=== PATIENT | male | born 1960 | race Two or more races ===

== ENCOUNTER 2024-07-31 09:38 | Inpatient (IN) | payer MEDICARE, MEDICAID, SELFPAY ==
[2024-07-31] VITALS (12 sets, daily range): BP systolic 90–121; BP diastolic 61–88; PULSE 79–95; RESP 16–25; TEMP 36.4–37.1; O2SAT 89–99; BMI 26.6
--- NOTE | 2024-07-31 10:01 | XR_ITS ---
Examination: AP chest single view Technique one AP portable upright chest single view Exam date and time: July 31, 2024 at 1039 hours INDICATIONS: Coughing chest pain one week. FINDINGS: Mild to moderate CHF Mild enlargement cardiac contour, prominent vascular congestion with perihilar basilar edema Moderate bilateral pleural effusions Consider superimposed pneumonia at the lung bases Fractures right sixth and seventh ribs as well as eighth rib posteriorly not seen on the 2019 chest x-ray, clinical correlation advised IMPRESSION: Mild to moderate CHF Consider superimposed bibasilar pneumonia Right-sided rib fractures, consider right rib series follow-up as clinically warranted
--- NOTE | 2024-07-31 10:01 | EKG_ITS ---
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: : 1960 Requested By: Matt Hewitt Order Number: [id number] Reading MD: Matt Hewitt Measurements Intervals [place] Rate: 86 P: 33 OK: 140 QRS: -41 QRSD: 100 T: 59 QT: 409 QTc: 492 Interpretive Statements SINUS RHYTHM LEFT AXIS DEVIATION [QRS AXIS < -30] INCOMPLETE RIGHT BUNDLE BRANCH BLOCK [90+ ms QRS DURATION, TERMINAL R IN V1/V2, 40+ ms S IN I/aVL/V4/V5/V6] SEPTAL MYOCARDIAL INFARCTION , OF INDETERMINATE AGE [40+ ms Q WAVE IN V1/V2] ST DEPRESSION, CONSIDER SUBENDOCARDIAL INJURY [0.1+ mV ST DEPRESSION] No previous ECG available for comparison /store/S0/[id number].pdf
[2024-07-31 11:14] LABS: Base Excess, Venous 0 (-3-3); O2 Saturation, Venous 52 % (96-97); PCO2, Venous 33 mmHg (36-56); PO2, Venous 30 mmHg (15-58); pH, Venous 7.46 (7.33-7.66)
[2024-07-31 11:16] LABS: Lactate (Lactic Acid) 2.5 mMol/L (0.4-2.0)
[2024-07-31 11:19] LABS: Basophils % (Auto) 0 % (0-2.5); Eosinophils % (Auto) 0 % (0-10); Hematocrit 29.3 % (41.0-53.0); Hemoglobin 9.9 g/dL (13.5-16.0); Immature Granulocytes % (Auto) 0 % (0-0); Immature Granulocytes Auto 0.04 Thou/mm3 (0.00-0.00); Lymphocytes # (Auto) 1.6 Thou/mm3 (1.0-4.8); Lymphocytes % (Auto) 16 % (10-50); Mean Corpuscular HGB Conc 33.8 g/dl (31.0-37.0); Mean Corpuscular Volume 80 fL (80-100); Monocytes # (Auto) 0.9 Thou/mm3 (0.0-0.8); Monocytes % (Auto) 9 % (0-12); Neutrophils # (Auto) 7.1 Thou/mm3 (1.8-7.7); Neutrophils % (Auto) 74 % (37-80); Nucleated Red Blood Cell % 0 /100 WBC (0); Platelet Count 220 Thou/mm3 (140-440); RDW Standard Deviation 53.2 fL (35.1-43.9); Red Blood Count 3.66 Miln/mm3 (4.50-5.90); White Blood Count 9.6 Thou/mm3 (3.8-10.6)
[2024-07-31 11:36] LABS: B-Type Natriuretic Peptide 2708 pg/mL (0-100)
[2024-07-31 11:44] LABS: Alanine Aminotransferase 15 U/L (10-49); Albumin, Serum 3.8 gm/dL (3.4-4.8); Albumin/Globulin Ratio 1.2 (1.2-2.2); Alkaline Phosphatase 135 U/L (46-116); Anion Gap 10 (7-16); Aspartate Amino Transferase 31 U/L (0-34); BUN/Creatinine Ratio 15 Ratio (12-20); Bilirubin,Total 2.2 mg/dL (0.3-1.2); Blood Urea Nitrogen 18 mg/dL (9-23); Calcium 8.2 mg/dL (8.3-10.6); Calcium (Corrected) 8.4 mg/dL (8.5-10.1); Carbon Dioxide 23.6 mMol/L (20.0-31.0); Chloride 101 mMol/L (98-107); Creatinine (Component) 1.2 mg/dL (0.6-1.3); Estimated Creatinine Clearance 53.4 mL/min (>60); Globulin 3.1 gm/dL (2.3-3.5); Glucose 190 mg/dL (74-106); Lipase 38 U/L (12-53); Magnesium 1.2 mg/dL (1.6-2.6); Osmolality,Calculated 277 (275-295); Potassium 4.1 mMol/L (3.4-5.1); Sodium 135 mMol/L (136-145); Total Protein 6.9 gm/dL (5.7-8.2); eGFR > 60 See Note
[2024-07-31 11:46] LABS: INR 1.3 (0.9-1.3); Partial Thromboplastin Time 31.6 Seconds (22.0-36.0); Prothrombin Time 14.4 Seconds (9.0-12.2)
[2024-07-31 11:50] LABS: Troponin I 2.337 ng/mL (0.0-0.045)
--- NOTE | 2024-07-31 12:05 | PD.EDSOB ---
ED SOB =RME/HPI General Chief Complaint: Shortness of Breath/Dyspnea Stated Complaint: SOB Time Seen by Provider: 07/31/24 10:00 Arrival date/time: 07/31/24 09:38 RME / HPI RME / HPI Narrative: Patient is a 64-year-old gentleman who comes in by EMS from home having increasing shortness of breath he never had this problem before. He states his shortness of breath is worse with exertion. EMS reported his O2 sats to be in the low 90s any pulm on 3 L came up to 99%. He has no other complaint or problem. He denies any obvious chest pain injury trauma no nausea or vomiting. He has no reported cough or cold symptoms. Related Data Home Medications ?Medication ?Instructions ?Recorded ?Confirmed amlodipine 2.5 mg tablet 2.5 mg PO QDAY 01/27/21 01/27/21 atorvastatin 40 mg tablet 40 mg PO QDAY 01/27/21 01/27/21 sitagliptin phosphate 100 mg 100 mg PO QDAY 01/27/21 01/27/21 tablet (Januvia) Previous Rx's ?Medication ?Instructions ?Recorded metformin 1,000 mg tablet 1,000 mg PO BID #60 tabs 08/01/19 Allergies Allergy/AdvReac Type Severity Reaction Status Date / Time No Known Allergies Allergy Verified 01/28/21 17:31 Review of Systems Review of Systems Narrative Review of Systems: Review of Systems: Constitutional: DENIES: Fevers,; Eyes: DENIES: Loss of vision, Head/Ear/Nose: DENIES: Loss of hearing. Throat: Denies dysphagia. Cardiovascular: Denies chest pain, Dyspnea or syncope. Respiratory: See HPI Gastrointestinal: DENIES: Rectal bleeding or melena. Genitourinary: DENIES: Dysuria (painful or difficult urination),; Musculoskeletal: DENIES: Arthralgia (pain in a joint),; Skin: DENIES: Rash,; Neurological: DENIES: loss of function or movement,; Psychiatric: DENIES: recent major life stressor, emotional problem, illicit drug use or abuse,; Endocrinology: DENIES: Weight change,; Hematologic/Lymphatic: DENIES: Abnormal bruising. Allergic/Immunologic: DENIES: Urticaria (hives), Past Medical History Past Medical History CARDIAC: Positive Cardiac Disorders, Hypercholesterolemia and Hypertension GASTROINTESTINAL: Positive Gastrointestinal Bleed MUSCULOSKELETAL: Positive Arthritis ENDOCRINE: Positive Endocrine Disorders and Diabetes Mellitus Type 2 HEMATOLOGIC: Positive Anemia PSYCHO/SOCIAL: Positive Depression and Anxiety OTHER HISTORY: Positive Hospitalization Social History SMOKING STATUS: Former smoker SUBSTANCE USE: does not use ED Exam Narrative Physical exam: Physical Exam: General: The vital signs were reviewed. The patient is non-toxic, in no apparent distress and appears healthy with a patent airway, no respiratory distress and has no apparent circulatory problems. Head & Scalp: Normocephalic, atraumatic. Face: Appears normal and is without lesions, deformity. Ears: Left external pinna appears normal. Right external pinna appears normal. Eyes: The sclera is anicteric. No obvious photophobia. The Left and Right Orbit/Lid/Conjunctiva appears normal without swelling, discoloration or injection. Nose: The nose is without deformity, discharge or tenderness; Throat: Appears normal. The mucous membranes are pink and moist without exudates, redness or mass seen. The tongue appears normal. Neck: The neck is supple and no apparent mass or adenopathy. Chest: The chest wall is normal in size and symmetry and has no chest wall tenderness or crepitus. The patient displays normal ventilator effort without retractions, accessory muscle use and has adequate air movement bilaterally with bilateral crackles. Appears comfortable on Cardiovascular: Regular rate and rhythm; No murmurs, rubs, or gallops; Gastrointestinal: The abdomen appears normal. No obvious hernias or mass. The abdomen is soft and benign, non-distended, with no pain, no guarding and no rebound tenderness. Bowel sounds are present and normal sounding. No CVA tenderness. Genitourinary: Back/Spine: Nontender Extremities/Musculoskeletal/lymphatic: The bilateral upper and lower extremities are warm. There is no evidence of arterial insufficiency. There is no evidence of venous insufficiency/edema. The patient spontaneously moves bilateral upper and lower extremities with no pain and no limitation of movement. There is no apparent, injury or trauma. Skin: The skin is warm, dry and intact. No rashes. No petechia. No purpura. No abnormal bruising. The color is appropriate with no cyanosis. Mental status/Psychiatric: Mental status is appropriate for age. The patient has no apparent delusions, visual hallucinations, no apparent audible hallucinations. The patient has no apparent suicidal thoughts/ideation and no apparent homicidal thoughts/ideation. Neurological: The patient is awake, alert, interactive, cordial, cooperative and is oriented to name and situation. The patient follows commands and answers historical question with no impairment. There is no visual disturbance apparent. The pupils are equal and reactive bilaterally with normal eye movements and no diplopia The bilateral upper and lower extremities have normal strength, normal range of motion and normal functioning. The gait, station and balance appear to be baseline with no acute change Course Quality Measures none Orders Category Date Time Status EKG (ED ONLY) *Do not use* NOW Care 07/31/24 10:01 Completed Consult to Cardiology Stat Cons 07/31/24 13:04 Ordered EKG (ED Only) Stat Exams 07/31/24 10:01 Draft XR chest 1V portable Stat Exams 07/31/24 10:01 Completed B-Type Natriuretic Peptide Stat Lab 07/31/24 10:55 Completed Blood Culture (Lab) Stat Lab 07/31/24 10:55 Received CBC Stat Lab 07/31/24 10:55 Completed Comprehensive Metabolic Panel Stat Lab 07/31/24 10:55 Completed Drug Screen,Urine Stat Lab 07/31/24 14:56 Received Lactate (Lactic Acid) Stat Lab 07/31/24 10:55 Completed Lipase Stat Lab 07/31/24 10:55 Completed Magnesium Stat Lab 07/31/24 10:55 Completed Partial Thromboplastin Time Stat Lab 07/31/24 10:55 Completed Prothrombin Time with INR Stat Lab 07/31/24 10:55 Completed Troponin I Stat Lab 07/31/24 10:55 Completed Troponin I Stat Lab 07/31/24 14:10 Ordered Urinalysis Stat Lab 07/31/24 14:56 Received Urinalysis, C/S if Indicated Stat Lab 07/31/24 14:56 Received Venous Blood Gas Stat Lab 07/31/24 10:55 Completed Aspirin Med 07/31/24 12:07 Discontinued 325 mg PO X1 ONE Furosemide [Lasix Inj] Med 07/31/24 12:07 Discontinued 20 mg IVP X1 ONE Vital Signs Vital signs: Vital Signs Temperature 98.4 F 07/31/24 09:44 Pulse Rate 88 07/31/24 09:44 Respiratory Rate 17 07/31/24 09:44 Blood Pressure 121/79 07/31/24 09:44 Pulse Oximetry (%) 99 07/31/24 09:44 Oxygen Delivery Method Nasal Cannula 07/31/24 09:44 Shortness of Breath / Dyspnea MDM Narrative MDM Narrative:: Patient patient presents with new onset shortness of breath with exertion and chest x-ray consistent with congestive heart failure bilateral effusions and cardiomegaly on chest x-ray. Troponin came back elevated 2.337 and BNP is elevated 2708. Lactic acid came back at 2.5 calcium is 8.2 pH hemic is 7.46 PTT is normal PT is 14.4 with INR 1.3 white count is 9.6 hemoglobin 9.9. EKG reveals sinus rhythm rate [address] elevation NE. There is borderline poor R wave progression. There is low voltages in the frontal leads. Obviously further medical workup is required. Patient clinically has new onset congestive heart failure is gone elevated BNP troponin. Dr. Celaya chief service dispatcher was called will be consulting. Hospitalist Dr. Corcoran was called and they will be admitting. Note the patient's blood pressure been marginal at 105 so is not a candidate for nitro we did give him an aspirin. Will give him some Lasix to treat the fluid overload condition. Note his renal function BUN is 18 creatinine 1.2. Patient data External records reviewed:: [facility] previous records (I reviewed ED visit on 01/27/24) and EMS form Clinical information provided by:: patient and EMS Social determinants that could affect healthcare access:: alcohol use Patient has the following chronic illnesses:: hypertension, diabetes, hyperlipidemiia, alcxohol use How is presenting disease/condition affected by chronic disease/condition?: exacerbated by Evaluation data The following diagnostics were reviewed and interpreted by me:: lab results, radiology exam(s) and EKG tracing(s) Lab and/or radiology exams considered but not ordered:: none Interpretation Summary: Ordering Physician: Matt Hewitt MD Date of Service: 07/31/24 Procedure(s): XR chest 1V portable Accession Number(s): [id number] cc: Matt Hewitt MD; Kit Abdi MD~ Examination: AP chest single view Technique one AP portable upright chest single view Exam date and time: July 31, 2024 at 1039 hours INDICATIONS: Coughing chest pain one week. FINDINGS: Mild to moderate CHF Mild enlargement cardiac contour, prominent vascular congestion with perihilar basilar edema Moderate bilateral pleural effusions Consider superimposed pneumonia at the lung bases Fractures right sixth and seventh ribs as well as eighth rib posteriorly not seen on the 2019 chest x-ray, clinical correlation advised IMPRESSION: Mild to moderate CHF Consider superimposed bibasilar pneumonia Right-sided rib fractures, consider right rib series follow-up as clinically warranted Dictated By: Kit Abdi MD Signed By: <Electronically signed by Kit Abdi MD in [place]> 07/31/24 1115 Medications / Prescriptions Medications or Prescriptions considered but not ordered:: none Medication administrations:: Medication Administration History Acetaminophen (Acetaminophen 325 Mg Tablet) 650 mg PO Q6H PRN PRN Reason: Pain 1-3 and/or Fever >100.1 Stop: 08/30/24 13:47 Dextrose (Dextrose 50%-Water Inj 50 Ml Syringe) 25 ml IV Q15MIN PRN PRN Reason: BG 50-70 responsive npo pt Stop: 08/30/24 13:50 Dextrose (Dextrose 50%-Water Inj 50 Ml Syringe) 50 ml IV Q15MIN PRN PRN Reason: BG <50 OR BG <70 & pt unresponsive Stop: 08/30/24 13:50 Folic Acid (Folic Acid 1 Mg Tablet) 1 mg PO BID EILEEN Stop: 08/05/24 20:59 Furosemide (Furosemide Inj 10 Mg/Ml 4ml Vial) 40 mg IVP BIDD EILEEN Stop: 08/30/24 17:59 Glucagon (Glucagon Inj 1 Mg Vial) 1 mg IM Q15MIN PRN PRN Reason: BG <70, and no IV access Heparin Sodium (Porcine) (Heparin Sod Inj 5000 Unit/Ml Vial) 5,000 unit SC Q12HR EILEEN Stop: 08/14/24 20:59 Magnesium Sulfate (Magnesium Sulfate Ivpb) 4 gm in 50 mls @ 12.5 mls/hr IV X1 ONE Stop: 07/31/24 17:54 Last Admin: 07/31/24 15:00 Dose: 12.5 mls/hr Documented By: Magnesium Sulfate (Magnesium Sulfate Ivpb) 4 gm in 50 mls @ 12.5 mls/hr IV X1 ONE Stop: 07/31/24 21:59 Insulin Human Lispro (Insulin Lispro (Admelog) 1 Unit/0.01 Ml Unit) 0 unit SC ACHS EILEEN; Protocol Stop: 08/30/24 16:59 Lorazepam (Lorazepam 0.5 Mg Tablet) 0.5 mg PO Q4HR PRN PRN Reason: CIWA Score 2-6 Stop: 08/05/24 13:51 Lorazepam (Lorazepam 0.5 Mg Tablet) 1 mg PO Q4HR PRN PRN Reason: CIWA SCORE 7-11 Stop: 08/05/24 13:51 Lorazepam (Lorazepam 0.5 Mg Tablet) 2 mg PO Q4HR PRN PRN Reason: CIWA SCORE 12-15 Stop: 08/05/24 13:51 Lorazepam (Lorazepam 2 Mg/Ml Vial) 1 mg IV X1 PRN PRN Reason: Breakthrough Agitation Nitroglycerin (Nitroglycerin 0.4 Mg Subl Btl #25) 0.4 mg SL Q5MIN PRN PRN Reason: CHEST PAIN Ondansetron HCl (Ondansetron Inj 2 Mg/Ml Inj 2 Ml) 4 mg IV Q6H PRN; Protocol PRN Reason: NAUSEA OR VOMITING Stop: 08/30/24 13:47 Sennosides (Senna Tablet) 1 tab PO QDAY EILEEN; Protocol Stop: 08/31/24 08:59 Thiamine HCl (Thiamine 100 Mg Tablet) 100 mg PO BID EILEEN Stop: 08/05/24 20:59 Discontinued Medications Aspirin (Aspirin 325 Mg Tablet) 325 mg PO X1 ONE Stop: 07/31/24 12:08 Last Admin: 07/31/24 12:13 Dose: 325 mg Documented By: THADDEUS Furosemide (Furosemide Inj 10 Mg/Ml Vial 2 Ml) 20 mg IVP X1 ONE Stop: 07/31/24 12:08 Last Admin: 07/31/24 12:16 Dose: 20 mg Documented By: THADDEUS see above Consultations Consultation(s) initiated? (list below): Yes Consultation #1 (Physician, Specialty, Details): I spoke with hospitalist team who have accepted the [facility]. Diagnosis Shortness of Breath Differential Diagnosis: acute exacerbation of chronic obstructive airways disease, congestive heart failure, community acquired pneumonia and asthma with exacerbation Most likely diagnosis given after review of the tests above:: acute CHF elevated troponin pleural effusion NSTEMI hx of alcohol abuse Admission Indicated Admission indicated?: indicated Admission Request Was there a request for admission?: Yes Admission Attestation Admission request attestation: Discussed case with [] from Hospitalist service regarding admission. Discussed patients ED course, exam findings, labs, and radiology results. The Hospitalist [agrees,declines] to accept the patient for admission. Disposition Plan Disposition Plan: Admit Discharge Plan Plan Patient Disposition: Admit Acute Care w/in Hospital Problem List Clinical Impression: Acute congestive heart failure, Elevated troponin, Pleural effusion, Non-ST elevation NE (NSTEMI), History of alcohol abuse
[2024-07-31] MEDS: Aspirin 325 MG TABLET PO (12:13)
[2024-07-31] MEDS: FUROSEMIDE INJ 10 MG/ML VIAL 2 ML 20 MG IVP (12:16)
--- NOTE | 2024-07-31 13:15 | PC.NURSE ---
PATIENT NOTED WITH OPEN AREA TO RIGHT GREAT TOE AND LEFT PLANTER.
--- NOTE | 2024-07-31 13:51 | XR_ITS ---
Examination: Foot bilateral, or views Technique: AP, lateral each foot total 4 views Date and time of exam: 2024 at 1353 hours Comparison November 15, 2023 INDICATIONS: Redness swelling and pain involving the feet months, history amputation spell FINDINGS: Amputations right second and third toes Amputation first digit left foot Soft tissue swelling about the second of the left foot Large soft tissue defect adjacent to the distal first metatarsal, erosions at the left second digit proximal and distal interphalangeal joints with cortical erosion along the medial distal first metatarsal IMPRESSION: Suspicious for osteomyelitis distal left first metatarsal as well and has proximal middle and distal phalanges left second digit
--- NOTE | 2024-07-31 13:58 | ESHP_ITS ---
<Statement entered by Camelia Nunez MD - 07/31/24 17:18> Patient was seen and examined by me personally. I have directly supervised and reviewed documentation by the team resident and agree with its findings with any exceptions or additional findings as below. Plan of care was discussed with the attending, Dr. Corcoran. New admission today. Patient is a 64-year-old male with past medical history of poorly controlled type 2 diabetes with toe amputations, hypertension, hyperlipidemia, and alcohol use disorder who is presenting to the ED on 07/31/2024 with worsening dypnea on exertion and orthopnea. He endorses mild chest pain that is worsened with inspiration and palpation. Patient reported it has been ongoing for at least 1 month but symptoms worsened in the last few days to the point he presented to the hospital. He has not seen a consultant dietitian in the past but follows with a PCP which he last saw a few months ago. Patient reports taking oral medications for diabetes, cholesterol medication, and antihypertensives. He denies history of smoking. He reports alcohol use but states last drink was about 6 days ago. When patient's was contacted she also endorsed that patient is a daily drinker. Patient was seen in the ED, saturating 90% on 3L O2, afebrile, HR in 90s. Work up revealed troponin 2.337, BNP 2708, normocytic anemia. CXR showed mild to moderate CHF with possible superimposed bibasilar pneumonia and right sided rib fractures. EKG showed normal sinus rhythm with left axis deviation and some ST depressions noted in the septal leads. Patient will be admitted for acute hypoxic respiratory failure secondary to new onset systolic heart failure exacerbation. Cardiology Dr. Celaya was also consulted for possible NSTEMI and was at bedside evaluating the patient with us. He suspects demand ischemia secondary to decompensated left-sided heart failure. Troponin subsequently uptrended to 3.893. Heparin drip is not recommended for now, and suspect chest pain is non-cardiac at this time. Hold off on beta-oscar. Started patient on aspirin and statin. Started Lasix 40 mg IV BID. Strict I&Os with fluid restriction. Awaiting echo. Patient will be placed on CIWA protocol given alcohol use history. X-rays were obtained of bilateral feet due to open ulcers and history of toe amputations. It showed suspicion for osteomyelitis of the distal left first metatarsal as well as proximal middle and distal phalanges left second digit. MRI of the bilateral feet will be ordered. Patient started on ceftriaxone 2 g IV. Right upper quadrant US had been ordered due to elevated Tbili and concern for abdominal pain and shows some suspicion for acute acalculous cholecystitis, but at the time of admission the patient is not complaining of abdominal pain and exam is benign, vitals within normal limits, no leukocytosis. Will hold off on surgery consultation and continue to monitor. Camelia Nunez, PGY-2 Documentation for date of: 07/31/24 HPI History of Present Illness Chief complaint: Chest pain History of present illness: 64-year-old male with past medical history of poorly controlled type 2 diabetes with amputations, hypertension, hyperlipidemia, alcohol use disorder, likely undiagnosed congestive heart failure presenting to the ED on 07/31/2024 with dyspnea on exertion along with chest tightness/pressure. Patient states that for the past year or so he has not felt well and usually is not able to lay flat as he feels short of breath; moreover, recent week he has felt the symptoms are progressively worsening. Patient denies having any palpitations, lower extremity edema or pain with change in movement but states that the pain worsens when he is coughing in the mornings. Further history was obtained by calling the patient's who stated that the patient requested to get [id number] medications at [facility] as symptoms were becoming unbearable. Patient apparently follows up with PCP and last time he was seen was 3 to 4 months ago. Patient presents today with chest pain/pressure-like sensation in the middle/substernal area which radiates diffusely throughout the chest wall. Patient recently was in [place] in May and came back at the end of June. Patient also has history of alcohol use disorder with multiple bottles of beer and small bottles of tequila; moreover, unsure exactly how much the patient drinks but he states his last drink was about 6 days ago. Patient appears to be living with family members but has his own living space within the property. Medical history: As noted above Surgical history: Multiple amputations of the lower extremity phalanges as noted in the exam below Allergies: NKDA Medications: Pending official med rec Family history: Noncontributory Social history: Patient is currently not working, lives in a property but lives separately from his family, alcohol use disorder with multiple drinks a day, denies smoking cigarettes or illicit drug use, patient is from [place] but travels to [place] often ROS: All 12 systems assessed and the patient denies unless otherwise stated in HPI. In the ED, patient presented normotensive, regular heart rate, respiratory rate 17, afebrile satting 99 on 3 L nasal cannula. Pertinent lab findings included WBC 9.6, hemoglobin 9.9 with MCV of 80, platelet 220, sodium 135, BUN 18, creatinine 1.2 (baseline 0.8), lactic acid 2.5, magnesium 1.2, troponin 2.337, BNP 2708, urine toxicology and urine alcohol pending. Chest x-ray shows mild to moderate CHF with possible superimposed bibasilar pneumonia and right sided rib fractures. EKG shows normal sinus rhythm with left axis deviation and some ST depressions are noted in the septal leads. Patient will be admitted for cardiomyopathy likely secondary to alcohol, congestive heart failure exacerbation with cardiology consulted for recommendations. Exam Vital Signs Temp Pulse Resp BP Pulse Ox O2 Del Method O2 Flow Rate 97.5 F 94 18 91/62 93 L Nasal Cannula 3 07/31/24 13:23 07/31/24 13:23 07/31/24 13:23 07/31/24 13:23 07/31/24 13:23 07/31/24 13:23 07/31/24 13:23 Narrative Exam Physical Exam: GENERAL: Awake, tearful, answers questions but takes some time to do so, appears older than stated age. HEENT: NC/AT. Moist mucosa. PERRLA but pinpoint (2/3mm)/EOMI. CARDIO: Heart RRR, no obvious murmurs, JVD noted. PULM: No coughing but appears visibly SOB on 3L NC, crackles noted on b/l upper lung diehl and distant breath sounds on lung bases. GI: Abdomen soft, NT/ND, +BS. SKIN/MSK/EXT: Patient has RLE ampuations (3rd/4th phalange) and LLE amputation (1st phalange), venous stasis changes. No rashes/edema. NEURO: Oriented x3, no focal neurological deficits noted. Results: Labs 08/01/24 02:30 08/01/24 02:30 Labs: Short CBC 07/31/24 Range/Units 10:55 WBC 9.6 (3.8-10.6) Thou/mm3 Hgb 9.9 L (13.5-16.0) g/dL Hct 29.3 L (41.0-53.0) % Plt Count 220 (140-440) Thou/mm3 BMP 07/31/24 10:55 Sodium 135 L Potassium 4.1 Chloride 101 Carbon Dioxide 23.6 BUN 18 Creatinine 1.2 Glucose 190 H Calcium 8.2 L Cardiac Enzymes 07/31/24 Range/Units 10:55 Troponin I 2.337 H* (0.0-0.045) ng/mL Liver Function 07/31/24 Range/Units 10:55 Total Bilirubin 2.2 H (0.3-1.2) mg/dL AST 31 (0-34) U/L ALT 15 (10-49) U/L Alkaline Phosphatase 135 H (46-116) U/L Albumin 3.8 (3.4-4.8) gm/dL ABG Interpretation ABG results: 07/31/24 10:55 VBG pH 7.46 VBG pCO2 33 L VBG pO2 30 VBG Base Excess 0 Quality Measures Quality Measures VTE prophylaxis Advance care planning discussed with:: patient and spouse Medications Home Medications and Allergies Home Medications ?Medication ?Instructions ?Recorded ?Confirmed ?Type amlodipine 2.5 mg tablet 2.5 mg PO QDAY 01/27/2107/18 History atorvastatin 40 mg tablet 40 mg PO QDAY 01/27/2101/27 History sitagliptin phosphate 100 mg 100 mg PO QDAY 01/27/21 0 01/27/21 History tablet (Januvia) Allergies Allergy/AdvReac Type Severity Reaction Status Date / Time No Known Allergies Allergy Verified 01/28/21 17:31 Visit Medications Acetaminophen (Acetaminophen 325 Mg Tablet) 650 mg PO Q6H PRN PRN Reason: Pain 1-3 and/or Fever >100.1 Stop: 08/30/24 13:47 Dextrose (Dextrose 50%-Water Inj 50 Ml Syringe) 25 ml IV Q15MIN PRN PRN Reason: BG 50-70 responsive npo pt Stop: 08/30/24 13:50 Dextrose (Dextrose 50%-Water Inj 50 Ml Syringe) 50 ml IV Q15MIN PRN PRN Reason: BG <50 OR BG <70 & pt unresponsive Stop: 08/30/24 13:50 Folic Acid (Folic Acid 1 Mg Tablet) [address] [facility] Stop: 08/05/24 20:59 Furosemide (Furosemide Inj 10 Mg/Ml 4ml Vial) [address] [facility] Stop: 08/30/24 17:59 Glucagon (Glucagon Inj 1 Mg Vial) 1 mg IM Q15MIN PRN PRN Reason: BG <70, and no IV access Heparin Sodium (Porcine) (Heparin Sod Inj 5000 Unit/Ml Vial) 5,[address] [facility] Stop: 08/14/24 20:59 Magnesium Sulfate (Magnesium Sulfate Ivpb) 4 gm in 50 mls @ 12.5 mls/hr IV X1 ONE Stop: 07/31/24 17:54 Magnesium Sulfate (Magnesium Sulfate Ivpb) 4 gm in 50 mls @ 12.5 mls/hr IV X1 ONE Stop: 07/31/24 21:59 Insulin Human Lispro (Insulin Lispro (Admelog) 1 Unit/0.01 Ml Unit) [address] [facility]; Protocol Stop: 08/30/24 16:59 Lorazepam (Lorazepam 0.5 Mg Tablet) 0.5 mg PO Q4HR PRN PRN Reason: CIWA Score 2-6 Stop: 08/05/24 13:51 Lorazepam (Lorazepam 0.5 Mg Tablet) 1 mg PO Q4HR PRN PRN Reason: CIWA SCORE 7-11 Stop: 08/05/24 13:51 Lorazepam (Lorazepam 0.5 Mg Tablet) 2 mg PO Q4HR PRN PRN Reason: CIWA SCORE 12-15 Stop: 08/05/24 13:51 Lorazepam (Lorazepam 2 Mg/Ml Vial) 1 mg IV X1 PRN PRN Reason: Breakthrough Agitation Nitroglycerin (Nitroglycerin 0.4 Mg Subl Btl #25) 0.4 mg SL Q5MIN PRN PRN Reason: CHEST PAIN Ondansetron HCl (Ondansetron Inj 2 Mg/Ml Inj 2 Ml) 4 mg IV Q6H PRN; Protocol PRN Reason: NAUSEA OR VOMITING Stop: 08/30/24 13:47 Sennosides (Senna Tablet) [address] [facility]; Protocol Stop: 08/31/24 08:59 Thiamine HCl (Thiamine 100 Mg Tablet) [address] [facility] Stop: 08/05/24 20:59 Discontinued Medications Aspirin (Aspirin 325 Mg Tablet) 325 mg PO X1 ONE Stop: 07/31/24 12:08 Last Admin: 07/31/24 12:13 Dose: 325 mg Furosemide (Furosemide Inj 10 Mg/Ml Vial 2 Ml) 20 mg IVP X1 ONE Stop: 07/31/24 12:08 Last Admin: 07/31/24 12:16 Dose: 20 mg Assessment & Plan Plan 64-year-old male with past medical history of poorly controlled type 2 diabetes with amputations, hypertension, hyperlipidemia, alcohol use disorder, likely undiagnosed congestive heart failure presenting to the ED on 07/31/2024 with dyspnea on exertion along with chest tightness/pressure will be admitted for cardiomyopathy likely secondary to alcohol, congestive heart failure exacerbation with cardiology consulted for recommendations. #Cardiomyopathy, likely secondary to alcohol use disorder #Congestive heart failure exacerbation #Elevated troponin, NSTEMI type I versus type II #Possible bibasilar pneumonia? Patient is presenting to the ED today with exertional dyspnea along with chest pain and signs of orthopnea for over a year Patient states that he follows a PCP for about 3 to 4 months but has not seen a consultant dietitian in the past regarding his symptoms In the ED, patient is normal/hypotensive and requiring supplemental oxygenation and complaining of substernal chest pressure Troponin elevated at 2.337 and BNP of 2708, magnesium 1.2; ED given aspirin 325 x 1 and IV furosemide 20 x 1 Chest x-ray shows mild to moderate CHF with possible superimposed bibasilar pneumonia and right sided rib fractures. EKG shows normal sinus rhythm with left axis deviation and some ST depressions are noted in the septal leads. Cardiology, Dr. Celaya, has been consulted Plan: Trending troponin every 6 hours Ordered Asp 81 and atorvastatin 40mg hs IV Lasix 40 mg twice daily Strict I's and O's Daily weight Echo ordered Sublingual nitroglycerin, max dose of 3 Keep potassium greater than 4 and magnesium greater than 2 Ordered morning A1c, TSH and lipid panel to risk stratify ASCVD Appreciate recommendations by Dr. Celaya, cardiology Will hold off on antibiotics at this time as the patient does not have any fever, elevated WBC #Alcohol use disorder Per history patient has alcohol use disorder and drinks beer and tequila; unsure exactly how much at this time History corroborated with the patient's who confirms that the patient does drink but she is also unsure exactly how much On laboratory findings patient has T. bili of 2.2, AST 31, ALT 15, alk phosphatase 135 Patient denies having any abdominal pain at this time and there are no signs of cirrhosis (caput medusae, spider angiomas, ascites) Plan: [facility] protocol initiated Counseled on alcohol cessation Liver ultrasound ordered #[id number] type 2 diabetes, poorly controlled #Possible osteomyelitis? Patient has known history of type 2 diabetes, denies using insulin and is currently on Januvia and metformin at home Last A1c on file is from 2020 and it is 11.4; moreover, current glucose 190 Patient has complications secondary to type 2 diabetes, amputations noted in exam Xray foot shows: Suspicious for osteomyelitis distal left first metatarsal as well and has proximal middle and distal phalanges left second digit Plan: Sliding scale insulin Carb consistent low diet, bedside glucose ACHS MRI bilateral feet ordered to rule out signs of osteomyelitis Ceftriaxone 2g IV qday empirically A1c in the morning Wound care #SHAHBAZ #Prerenal azotemia Patient presenting today with acute kidney injury with creatinine of 1.2 Baseline creatinine appears to be 0.8-0.9 SHAHBAZ is likely secondary to acute exacerbation of congestive heart failure and cardiomyopathy Plan: IV diuresis as above should help with vascular congestion and improve kidney function Will continue monitor with morning labs #Hypertension Patient has history of hypertension and takes some pulm medications, unsure exactly which medications Patient is currently normotensive/hypotensive Plan: Pending med rec Will resume when appropriate #Normocytic anemia Patient is presenting with hemoglobin of 9.9, MCV of 80 Differentials include iron deficiency anemia, anemia of chronic disease, vitamin deficiency, hemolytic anemia No signs of acute GI bleeding noted, patient denies having any hematuria or melena/hematochezia/hematemesis Plan: Follow-up on iron panel, ferritin, reticulocyte count and blood smear Hospital Management: Lines: PIV, Dailey Diet: Cardiac, carb consistent low and fluid restriction 1800 mL Bowel: Senna GI prophylaxis: Not needed DVT prophylaxis: Heparin subcu Dispo: Cardiology consultation for cardiomyopathy and congestive heart failure exacerbation, IV diuretics and workup for possible osteomyelitis Code: Full Patient seen and assessed with attending Dr. Corcoran and senior resident Dr. Enrique Damon, PGY-1 Attending Provider Attestation/Addendum I have examined the patient, reviewed labs and imaging findings, discussed the case with the resident(s), and reviewed entered orders. I agree with the plan of care as outlined in this note, with these additional summaries/recommendations: Patient seen at bedside. Patient will be admitted for acute hypoxic respiratory failure secondary to CHF exacerbation. EF unknown at this time and echocardiogram ordered. Cardiology consulted. Will proceed with aggressive diuresis Lasix 40 mg IV twice daily as patient appears Lasix na?ve. Pending ejection fraction we will institute goal-directed medical therapy. Troponin found to be significantly elevated and patient endorsing some chest pain although no evidence of acute ST changes on EKG. We will continue to trend troponin. Patient received loading dose of aspirin via ER provider and we will start aspirin 81 mg as well as atorvastatin 40 mg p.o. at bedtime. Most likely secondary to demand ischemia and appreciate cardiac recs. Of note chest x-ray shows right rib fractures so may be the source of patient's pain although no evidence of following. Continue pain management as needed. Patient also endorses alcohol use and we will place on CIWA. Hyperbilirubinemia present which is possibly secondary to congestive hepatopathy versus alcohol use. Liver ultrasound ordered. Start insulin sliding scale for diabetes mellitus type 2. Order A1c. Mild hypomagnesia present and replacement given. Repeat level in AM. Chest x-ray showed possible superimposed bacterial pneumonia although suspicion is low at this time and we will hold off starting antibiotics. Patient updated on the plan and in agreement. All questions answered to satisfaction. Repeat hematology and chemistry panel in AM. Dr. Nilo MD
[2024-07-31 14:10] LABS: Reflex Lactate? Y
--- NOTE | 2024-07-31 14:29 | XR_ITS ---
Examination: Abdomen sonogram, Limited Date and time of exam: July 31, 2024 1449 hours INDICATIONS: Alcohol abuse history with elevated total bilirubin on laboratory examination today Technique: Real-time nicholson scale transabdominal sonographic images of the upper abdomen obtained. Findings: Gallbladder wall 0.4 cm with edema No gallstones Common bile duct 0.3 cm Pancreatic head 2.4 cm Liver 15.2 cm Fatty infiltration throughout the liver Normal hepatopedal portal venous flow Patent IVC Mild right pleural fluid IMPRESSION: Suspicious for acute acalculous cholecystitis, consider MRCP follow-up
--- NOTE | 2024-07-31 14:42 | PC.CC ---
Patient presents to the hospital for CHF Exacerbation. Nicolle GONZALEZ made [id number] contact with patient. ASW introduced self, role, and reason for visit. Patient appeared alert and oriented to self, location, and situation. At bedside was patient's , Era Adhikari , patient provided consent to remain in the room during assessment. ASW discussed limits of confidentiality. Patient was pleasant and engaged in initial assessment. Patient confirmed information on demographics. His medical decision maker/next of kin is his Era. At home patient ambulates with a walker/motorized chair/cane patient is able to complete his own ADLs. He stated that he has been struggling with ambulation more as he is not able to bare weight on his feet and has been having frequent falls. Patient does not use any oxygen at home. Patient's primary provider is John Singer and he uses the pharmacy inside [facility]. Upon discharge patient would liek to go home but if not able to his last choice would be SNF but would like Home Health. Hardware Developer to follow up for any discharge needs.
[2024-07-31] MEDS: Magnesium Sulfate 4 GM Ivpb 4 GM/50 ML BAG IV ×2 (15:00→17:24)
[2024-07-31 15:13] LABS: Collection Type, Urine Clean Catch
[2024-07-31 15:27] LABS: Bilirubin,Urine Negative (Negative); Blood,Urine Negative (Negative); Clarity,Urine Clear (Clear/Hazy); Color,Urine Lt-Yellow (Lt Yel-Yel); Culture Indicated,Urine Not Indicated; Glucose, Urine Negative (Negative); Hyaline Casts,Urine < 1 /hpf (0-1); Ketones,Urine Negative (Negative); Leukocyte Esterase,Urine Negative (Negative); Nitrite,Urine Negative (Negative); Protein,Urine Negative (Neg - Trace); RBC,Urine 1 /hpf (0-3); Squamous Epithelial Cell,Urine < 1 /hpf (0-5); Urobilinogen,Urine Negative mg/dL (0.0-1.0); WBC,Urine 1 /hpf (0-5)
[2024-07-31 15:32] LABS: Amphetamine/Methamp Scrn,U Negative (Negative); Barbiturate Screen,Urine Negative (Negative); Benzodiazepines Screen,Urine Negative (Negative); Benzoylecgonine Screen, Ur Negative (Negative); Fentanyl Screen,Urine Negative (Negative); Opiate Screen,Urine Negative (Negative); THC Screen,Urine Negative (Negative)
[2024-07-31 15:39] LABS: Alcohol, Urine Negative (Negative)
[2024-07-31 15:59] LABS: Troponin I 3.893 ng/mL (0.0-0.045)
--- NOTE | 2024-07-31 16:01 | ESCONSULT_ITS ---
<Statement entered by Shi Celaya MD - 08/03/24 16:49> I evaluated the patient in ED with PGY 3 Dr AYALA agree with assessment and recommendations will get ECHO and assess mostly acutely decompensated HF and type 2 troponin will trend , aggressive duretics LASIX monitor response HPI Data of Consult Requesting Physician: Olivier Corcoran MD Admitting Provider: Olivier Corcoran MD Attending Provider: Olivier Corcoran MD Primary Care Provider: John Taylor PA-C Consult Narrative Reason for consult: New-onset CHF History of present illness: Patient is a 64-year-old male with history of type 2 diabetes mellitus, hypertension, hyperlipidemia, and alcohol use who presented to the ED with concerns of dyspnea on exertion and chest pressure that began roughly 1 month ago. Symptoms noticed to worsen on physical exertion or when laying down. He had plan to follow-up with his PCP, however was waiting for insurance change when his symptoms noticed to become very severe, decided to come to the ED at that time. If you do not get that in the ED, patient was noticed to have imaging of mild to moderate CHF on chest x-ray in the setting of elevated BNP 2708 and elevated troponins 2.337, EKG revealing sinus rhythm without concern of acute ME. Cardiology team was consulted for concern of new onset congestive heart failure. At bedside, patient reports that the chest pressure is mostly on the left side and occurs when patient coughs. The pressure can sometimes radiate to the patient's left arm, has occurred multiple times in the last month. There were no inciting factors reported, however patient does endorse that he has had 2 falls in the last few years resulting in left and right sided rib fractures. ROS is pertinent for dyspnea and chest pressure, patient denies having bilateral lower extremity edema. Remainder of ROS unremarkable. PMH: type 2 diabetes mellitus, hypertension, hyperlipidemia, and alcohol use FH: T2DM, Alzheimer's disease, Cancer (unclear which type) Surgical Hx: Left foot first toe and right foot second/third digit amputation Social Hx: Last alcohol drink few days ago (unclear how much patient normally consumes), denies tobacco or drug use Travel Hx: In [place] between May-Jun 2024 cc:: cc: Olivier Corcoran MD Review of Systems Review of Systems Narrative Review of Systems: GENERAL: Denies fevers/chills or diaphoresis. HEENT: Denies headache or visual/hearing changes. NEURO: Denies unusual weakness or difficulty speaking. CARDIO: Endorses chest pressure PULM: Endorses dyspnea on exertion, cough GI: Denies abdominal pain, nausea, vomiting, diarrhea Exam Vital Signs Temp Pulse Resp BP Pulse Ox O2 Del Method O2 Flow Rate 98.8 F 95 16 102/88 H 94 L Nasal Cannula 3 07/31/24 14:29 07/31/24 14:29 07/31/24 14:29 07/31/24 14:29 07/31/24 14:29 07/31/24 14:07/31/24 14:29 Narrative Exam General: AOx3, cooperative, in no acute distress HEENT: Atraumatic/normocephalic, ESEQUIEL, neck supple Heart: RRR, S1 and S2 without clicks or murmurs Lungs: Clear on auscultation bilaterally, on 3L NC Abdomen: Soft, nontender. Bowel sounds present on all quadrants Skin: Left foot first digit amputation, right foot second and third digit amputation, no lower extremity edema noted Neuro: No focal neurological deficits noted on appearance Results Labs 07/31/24 10:55 07/31/24 10:55 Labs: Short CBC 07/31/24 Range/Units 10:55 WBC 9.6 (3.8-10.6) Thou/mm3 Hgb 9.9 L (13.5-16.0) g/dL Hct 29.3 L (41.0-53.0) % Plt Count 220 (140-440) Thou/mm3 BMP 07/31/24 10:55 Sodium 135 L Potassium 4.1 Chloride 101 Carbon Dioxide 23.6 BUN 18 Creatinine 1.2 Glucose 190 H Calcium 8.2 L Cardiac Enzymes 07/31/24 07/31/24 Range/Units 10:55 15:12 Troponin I 2.337 H* 3.893 H* D (0.0-0.045) ng/mL Liver Function 07/31/24 Range/Units 10:55 Total Bilirubin 2.2 H (0.3-1.2) mg/dL AST 31 (0-34) U/L ALT 15 (10-49) U/L Alkaline Phosphatase 135 H (46-116) U/L Albumin 3.8 (3.4-4.8) gm/dL Urine 07/31/24 Range/Units 14:56 Urine Color Lt-Yellow (Lt Yel-Yel) Urine Clarity Clear (Clear/Hazy) Urine pH 6.0 (5.0-7.0) Ur Specific Coral 1.010 (1.001-1.035) Urine Protein Negative (Neg - Trace) Urine Glucose (UA) Negative (Negative) ABG Interpretation ABG results: 07/31/24 10:55 VBG pH 7.46 VBG pCO2 33 L VBG pO2 30 VBG Base Excess 0 Quality Measures Quality Measures none Advance care planning discussed with:: patient Medications Home Medications and Allergies Home Medications ?Medication ?Instructions ?Recorded ?Confirmed ?Type amlodipine 2.5 mg tablet 2.5 mg PO QDAY 01/27/2107/18 History atorvastatin 40 mg tablet 40 mg PO QDAY 01/27/2101/27 History sitagliptin phosphate 100 mg 100 mg PO QDAY 01/27/21 0 01/27/21 History tablet (Januvia) Allergies Allergy/AdvReac Type Severity Reaction Status Date / Time No Known Allergies Allergy Verified 01/28/21 17:31 Visit Medications Acetaminophen (Acetaminophen 325 Mg Tablet) 650 mg PO Q6H PRN PRN Reason: Pain 1-3 and/or Fever >100.1 Stop: 08/30/24 13:47 Aspirin (Aspirin Ec 81 Mg Tabec) 81 mg PO QDAY EILEEN Stop: 08/31/24 08:59 Atorvastatin Calcium (Atorvastatin Calcium 20 Mg Tablet) 40 mg PO HS EILEEN Stop: 08/30/24 20:59 Dextrose (Dextrose 50%-Water Inj 50 Ml Syringe) 25 ml IV Q15MIN PRN PRN Reason: BG 50-70 responsive npo pt Stop: 08/30/24 13:50 Dextrose (Dextrose 50%-Water Inj 50 Ml Syringe) 50 ml IV Q15MIN PRN PRN Reason: BG <50 OR BG <70 & pt unresponsive Stop: 08/30/24 13:50 Folic Acid (Folic Acid 1 Mg Tablet) 1 mg PO BID EILEEN Stop: 08/05/24 20:59 Furosemide (Furosemide Inj 10 Mg/Ml 4ml Vial) 40 mg IVP BIDD EILEEN Stop: 08/30/24 17:59 Glucagon (Glucagon Inj 1 Mg Vial) 1 mg IM Q15MIN PRN PRN Reason: BG <70, and no IV access Heparin Sodium (Porcine) (Heparin Sod Inj 5000 Unit/Ml Vial) 5,000 unit SC Q12HR [facility] Stop: 08/14/24 20:59 Magnesium Sulfate (Magnesium Sulfate Ivpb) 4 gm in 50 mls @ 12.5 mls/hr IV X1 ONE Stop: 07/31/24 17:54 Last Admin: 07/31/24 15:00 Dose: 12.5 mls/hr Magnesium Sulfate (Magnesium Sulfate Ivpb) 4 gm in 50 mls @ 12.5 mls/hr IV X1 ONE Stop: 07/31/24 21:59 Insulin Human Lispro (Insulin Lispro (Admelog) 1 Unit/0.01 Ml Unit) 0 unit SC ACHS [facility]; Protocol Stop: 08/30/24 16:59 Lorazepam (Lorazepam 0.5 Mg Tablet) 0.5 mg PO Q4HR PRN PRN Reason: CIWA Score 2-6 Stop: 08/05/24 13:51 Lorazepam (Lorazepam 0.5 Mg Tablet) 1 mg PO Q4HR PRN PRN Reason: CIWA SCORE 7-11 Stop: 08/05/24 13:51 Lorazepam (Lorazepam 0.5 Mg Tablet) 2 mg PO Q4HR PRN PRN Reason: CIWA SCORE 12-15 Stop: 08/05/24 13:51 Lorazepam (Lorazepam 2 Mg/Ml Vial) 1 mg IV X1 PRN PRN Reason: Breakthrough Agitation Nitroglycerin (Nitroglycerin 0.4 Mg Subl Btl #25) 0.4 mg SL Q5MIN PRN PRN Reason: CHEST PAIN Ondansetron HCl (Ondansetron Inj 2 Mg/Ml Inj 2 Ml) 4 mg IV Q6H PRN; Protocol PRN Reason: NAUSEA OR VOMITING Stop: 08/30/24 13:47 Sennosides (Senna Tablet) 1 tab PO QDAY [facility]; Protocol Stop: 08/31/24 08:59 Thiamine HCl (Thiamine 100 Mg Tablet) 100 mg PO BID [facility] Stop: 08/05/24 20:59 Discontinued Medications Aspirin (Aspirin 325 Mg Tablet) 325 mg PO X1 ONE Stop: 07/31/24 12:08 Last Admin: 07/31/24 12:13 Dose: 325 mg Furosemide (Furosemide Inj 10 Mg/Ml Vial 2 Ml) 20 mg IVP X1 ONE Stop: 07/31/24 12:08 Last Admin: 07/31/24 12:16 Dose: 20 mg Assessment & Plan Plan Patient is a 64-year-old male with history of type 2 diabetes mellitus, hypertension, hyperlipidemia, and alcohol use who presented to the ED with concerns of dyspnea on exertion and chest pressure that began roughly 1 month ago. Symptoms noticed to worsen on physical exertion or when laying down. He had plan to follow-up with his PCP, however was waiting for insurance change when his symptoms noticed to become very severe, decided to come to the ED at that time. If you do not get that in the ED, patient was noticed to have imaging of mild to moderate CHF on chest x-ray in the setting of elevated BNP 2708 and elevated troponin 2.337, EKG revealing sinus rhythm without concern of acute ME. Cardiology team was consulted for concern of new onset congestive heart failure. #New-onset congestive heart failure #Troponin elevation in setting of CHF and demand ischemia #Possible ischemic cardiomyopathy - Troponin 2.337 and BNP 2708 on admission - Troponin noted to increase to 3.893, no changes to patient's clinical condition noted - EKG revealing sinus rhythm, low suspicion for acute ME - CXR revealing mild-moderate CHF, with right sided rib fractures - Orthopnea and dyspnea on exertion reported by patient, no lower extremity edema noted Plan: - IV lasix 40mg BID with goal urine output ~2L in 24 hours - Strict I/Os - Fluid restriction 5266-6083 cc/daily - Hold on starting beta blockers for now - Echocardiogram advised - DVT prophylaxis, do not recommend IV heparin at this time #Alcohol use disorder #SHAHBAZ #Hx of T2DM - Management per primary team Patient case discussed with attending physician Dr. Yomi Ayala, DO PGY-3
--- NOTE | 2024-07-31 16:22 | PC.NURSE ---
MD made aware of critical trop 3.893. No orders given. will continue to monitor
[2024-07-31] MEDS: cefTRIAXone 2 GM in SODIUM CHLORIDE 0.9% (Popper) 50 ML IV (17:23)
[2024-07-31] MEDS: FUROSEMIDE INJ 10 MG/ML 4ML VIAL 40 MG IVP (17:24)
[2024-07-31] MEDS: HEPARIN SOD INJ 5000 UNIT/ML VIAL SC (20:34)
[2024-07-31] MEDS: ATORVASTATIN CALCIUM 20 MG TABLET 40 MG PO (20:34)
[2024-07-31] MEDS: FOLIC ACID 1 MG TABLET PO (20:34)
[2024-07-31] MEDS: THIAMINE 100 MG TABLET PO (20:34)
[2024-07-31] MEDS: INSULIN LISPRO (AdmeLOG) 1 UNIT/0.01 ML UNIT SC (20:35)
[2024-07-31 22:07] LABS: Troponin I 5.348 ng/mL (0.0-0.045)
[2024-08-01] VITALS (8 sets, daily range): BP systolic 91–114; BP diastolic 54–83; PULSE 75–88; RESP 18–27; TEMP 36.2–37.3; O2SAT 94–99; BMI 28.1
--- NOTE | 2024-08-01 | XR_ITS ---
Examination: MRI right foot, without contrast Date and time of exam: August 11, 2024 1054 hours INDICATIONS: Nonhealing wound right great toe 2 months Technique: Multiple axial sagittal and coronal images of the right foot have been obtained with the Siemens high-resolution 1.5 Marina MRI scanner. Images obtained include T2-weighted fat-suppressed sagittal sections, TR 3500, TE 46, T2 weighted coronal fat suppressed images, TR 3050, TE 84, T2-weighted transverse fat suppressed images, TR 3260, TE 63, proton density transverse images, TR 4720 TE 46, and T1 weighted coronal images, TR 560, TE 13. Findings: The images are significantly degraded secondary to patient motion Soft tissue infection surrounds the second digit Early cortical bone destruction involving distal phalanx second digit No soft tissue abscess IMPRESSION: Suspicious for early osteomyelitis distal phalanx second digit
--- NOTE | 2024-08-01 | XR_ITS ---
Examination: MRI left foot, without contrast Date and time of exam: August 11, 2024 1124 hours INDICATIONS: Nonhealing wound left first metatarsal pain and swelling and tenderness years Technique: Multiple axial sagittal and coronal images of the left foot have been obtained with the Siemens high-resolution 1.5 Marina MRI scanner. Images obtained include T2-weighted fat-suppressed sagittal sections, TR 3500, TE 46, T2 weighted coronal fat suppressed images, TR 3050, TE 84, T2-weighted transverse fat suppressed images, TR 3260, TE 63, proton density transverse images, TR 4720 TE 46, and T1 weighted coronal images, TR 560, TE 13. Findings: Soft tissue infection surrounding the distal first metatarsal Early cortical bone erosion sagittal image 6 involving the distal first metatarsal with reactive marrow edema Amputation left first digit No soft tissue abscess Absent first digit IMPRESSION: Early osteomyelitis distal first metatarsal
[2024-08-01 02:50] LABS: Basophils # (Auto) 0.1 Thou/mm3 (0.0-0.2); Basophils % (Auto) 1 % (0-2.5); Eosinophils # (Auto) 0.2 Thou/mm3 (0.0-0.5); Eosinophils % (Auto) 2 % (0-10); Hematocrit 28.6 % (41.0-53.0); Hemoglobin 9.5 g/dL (13.5-16.0); Immature Granulocytes % (Auto) 0 % (0-0); Immature Granulocytes Auto 0.03 Thou/mm3 (0.00-0.00); Immature Reticulocyte Fraction 38.6 % (2.3-13.4); Lymphocytes # (Auto) 2.3 Thou/mm3 (1.0-4.8); Lymphocytes % (Auto) 27 % (10-50); Mean Corpuscular HGB Conc 33.2 g/dl (31.0-37.0); Mean Corpuscular Hemoglobin 26.5 pg (25.0-35.0); Mean Corpuscular Volume 80 fL (80-100); Monocytes # (Auto) 0.8 Thou/mm3 (0.0-0.8); Monocytes % (Auto) 9 % (0-12); Neutrophils # (Auto) 5.3 Thou/mm3 (1.8-7.7); Neutrophils % (Auto) 61 % (37-80); Nucleated Red Blood Cell % 0 /100 WBC (0); Platelet Count 194 Thou/mm3 (140-440); Red Blood Count 3.58 Miln/mm3 (4.50-5.90); Reticulocyte % (Auto) 2.5 % (0.5-1.5); Reticulocyte Absolute Auto 89.5 Biln/L (25.0-75.0); Reticulocyte Hgb Content 27.2 pg (28.0-35.0); White Blood Count 8.7 Thou/mm3 (3.8-10.6)
[2024-08-01 02:53] LABS: Path Review Blood Smear Sent to Pathologist
[2024-08-01 02:59] LABS: Glucose Estimated Average 148 mg/dL (80-131); Hemoglobin A1C 6.8 % Hgb (4.8-6.0)
[2024-08-01 03:02] LABS: INR 1.2 (0.9-1.3); Prothrombin Time 13.2 Seconds (9.0-12.2)
[2024-08-01 03:10] LABS: Ferritin 28 ng/mL (10.5-307.3); Iron 12 mcg/dL (65-175); Percent Iron Saturation 3 % (20-55); Total Iron Binding Capacity 330 mcg/dL (250-425); Unsaturated Iron Binding 318 (225-295)
[2024-08-01 03:16] LABS: Alanine Aminotransferase 15 U/L (10-49); Albumin, Serum 3.4 gm/dL (3.4-4.8); Albumin/Globulin Ratio 1.1 (1.2-2.2); Alkaline Phosphatase 124 U/L (46-116); Anion Gap 7 (7-16); Aspartate Amino Transferase 44 U/L (0-34); BUN/Creatinine Ratio 18 Ratio (12-20); Bilirubin,Total 1.4 mg/dL (0.3-1.2); Blood Urea Nitrogen 18 mg/dL (9-23); Calcium 7.9 mg/dL (8.3-10.6); Calcium (Corrected) 8.4 mg/dL (8.5-10.1); Carbon Dioxide 25.8 mMol/L (20.0-31.0); Cardiac Risk Estimate 3.3 RATIO (4.0-6.7); Chloride 101 mMol/L (98-107); Cholesterol 100 mg/dL (132-200); Estimated Creatinine Clearance 64.1 mL/min (>60); Globulin 3.2 gm/dL (2.3-3.5); Glucose 109 mg/dL (74-106); HDL Cholesterol 30 mg/dL (40-60); LDL Cholesterol,Calculated 56 mg/dL (0-130); Magnesium 2.4 mg/dL (1.6-2.6); Osmolality,Calculated 271 (275-295); Phosphorous 3.3 mg/dL (2.4-5.1); Sodium 134 mMol/L (136-145); Thyroid Stimulating Hormone 1.84 uIU/mL (0.55-4.78); Total Protein 6.6 gm/dL (5.7-8.2); Triglycerides 71 mg/dL (30-150); eGFR > 60 See Note
[2024-08-01 03:19] LABS: Troponin I 5.886 ng/mL (0.0-0.045)
[2024-08-01] MEDS: FUROSEMIDE INJ 10 MG/ML 4ML VIAL 40 MG IVP (05:36)
--- NOTE | 2024-08-01 07:41 | PC.NURSE ---
Dr. Damon made aware of patients uptrending Troponin level. Per Dr. Damon we will continue to trend Troponin, new order for repeat being placed now. No other interventions ordered at this time. Patient is asymptomatic on assessment.
[2024-08-01 08:43] LABS: Partial Thromboplastin Time 31.5 Seconds (22.0-36.0)
[2024-08-01 08:50] LABS: Troponin I 4.596 ng/mL (0.0-0.045)
[2024-08-01] MEDS: POTASSIUM CHLORIDE 20 mEq TABCR 40 MEQ PO ×2 (10:01→13:05)
[2024-08-01] MEDS: cefTRIAXone 2 GM in SODIUM CHLORIDE 0.9% (Popper) 50 ML IV (10:01)
[2024-08-01] MEDS: FOLIC ACID 1 MG TABLET PO ×2 (10:02→20:46)
[2024-08-01] MEDS: ASPIRIN EC 81 MG TABEC PO (10:02)
[2024-08-01] MEDS: SENNA TABLET 1 TAB PO (10:02)
[2024-08-01] MEDS: THIAMINE 100 MG TABLET PO ×2 (10:02→20:46)
--- NOTE | 2024-08-01 10:45 | PC.NURSE ---
Patient transported to MRI via wheelchair per patient care technician. Patient awake, alert and oriented with no signs of acute distress.
--- NOTE | 2024-08-01 11:53 | PC.NURSE ---
Patient returned from MRI- no signs of acute distress.
--- NOTE | 2024-08-01 11:54 | PC.SS ---
Follow up note: Pending ECHO. Possible biopsy. On IV antibiotic.
[2024-08-01] MEDS: FERROUS SULF 325 MG TABLET PO (13:06)
--- NOTE | 2024-08-01 13:49 | ECHO_ITS ---
Transthoracic Echo Report Ht (in): 65 Wt (lb): 169 Exam Location: Portable Status: Inpatient Cracker Sprayer: BURNS Rogers^^^^ Indications: Procedure Performed: BP: 134 / 75 HR: 81 Technical Quality: Fair MEASUREMENTS (Male / Female) Normal Values 2D ECHO LV Diastolic Diameter PLAX 5.2 cm 4.2 - 5.9 / 3.9 - 5.3 cm LV Systolic Diameter PLAX 4.7 cm IVS Diastolic Thickness 0.7 cm 0.6 - 1.0 / 0.6 - 0.9 cm LVPW Diastolic Thickness 0.7 cm 0.6 - 1.0 / 0.6 - 0.9 cm LV Relative Wall Thickness 0.3 LVOT Diameter 1.9 cm Aortic Root Diameter 3.3 cm LA Systolic Diameter LX 4.0 cm 3.0 - 4.0 / 2.7 - 3.8 cm LV Ejection Fraction MOD BP 33.3 % >= 55 % LV Cardiac Index MOD BP 2077.4 cm?/min?m? LV Ejection Fraction MOD 4C 31.7 % LV Cardiac Index MOD 4C 1953.4 cm?/min?m? LV Ejection Fraction 4C AL 34.0 % LV Cardiac Index 4C AL 2159.8 cm?/min?m? LV Ejection Fraction MOD 2C 27.1 % LV Cardiac Index MOD 2C 1530.3 cm?/min?m? LV Ejection Fraction 2C AL 27.4 % LV Cardiac Index 2C AL 1588.1 cm?/min?m? LA Volume Index 41.8 cm?/m? 16 - 28 cm?/m? Ascending Aorta Diameter 3.2 cm DOPPLER AV Peak Velocity 105.8 cm/s AV Peak Gradient 4.5 mmHg AV Mean Gradient 4.0 mmHg AV Velocity Time Integral 23.4 cm LVOT Peak Velocity 79.1 cm/s LVOT Peak Gradient 2.5 mmHg LVOT Velocity Time Integral 18.1 cm LVOT Cardiac Index 2193.6 cm?/min?m? AV Area Cont Eq vti 2.2 cm? AV Area Cont Eq pk 2.1 cm? MV Peak Velocity 64.7 cm/s MV Peak Gradient 1.7 mmHg MV Mean Velocity 51.8 cm/s MV Mean Gradient 1.0 mmHg MV Area PHT 6.3 cm? MR Peak Velocity 481.0 cm/s MR Peak Gradient 92.5 mmHg Mitral E Point Velocity 73.2 cm/s Mitral A Point Velocity 52.5 cm/s Mitral E to A Ratio 1.4 LV E' Lateral Velocity 8.0 cm/s Mitral E to LV E' Lateral Ratio 9.2 LV E' Septal Velocity 7.3 cm/s Mitral E to LV E' Septal Ratio 10.0 TR Peak Velocity 271.7 cm/s TR Peak Gradient 29.5 mmHg PV Peak Velocity 94.8 cm/s PV Peak Gradient 3.6 mmHg RVOT Peak Velocity 31.8 cm/s FINDINGS Left Ventricle There are findings consistent with dilated cardiomyopathy with severe global hypokinesis . The left ventricular ejection fraction is severely decreased, estimated at 25-30%. There is grade II diastolic dysfunction of the left ventricle (pseudonormal filling pattern). Right Ventricle The right ventricle is normal in size and systolic function. The estimated right ventricular systolic pressure, 30 mmHg. Left Atrium Mildly increased left atrial volume 41.8 mL/m?. Right Atrium The right atrial cavity size is mildly increased. Atrial Septum The interatrial septum appears normal with no evidence of a shunt. Aorta The aorta is normal by two-dimensional, color flow and Doppler interrogation. Mitral Valve Moderate mitral regurgitation. Mild mitral annular calcification. Aortic Valve Aortic valve sclerosis. Trace to mild aortic valve regurgitation. Tricuspid Valve There is mild tricuspid valve regurgitation. Pulmonic Valve The pulmonic valve is not well visualized. There is no significant pulmonic valve regurgitation. Vessels The pulmonary artery appears normal. The inferior vena cava pulmonary and hepatic veins appear normal. Pericardium The pericardium is normal by two-dimensional imaging. There is no significant pericardial effusion. Other Findings plueral effusion CONCLUSIONS indication: CM HFrEF Dilated cardiomyopahy with sever LV dysfunction LVEF 25-30%. RV appears normal with RVSP 30 mmHg. LA is mildly dilated. RA is mildly dilated. Mild mitral regurgitation Mild TR Left pleural effusion Mary Velazco (Electronically Signed) Final Date: 01 August 2024 12:42
--- NOTE | 2024-08-01 14:04 | PD.RESPRO ---
Documentation for date of: 08/01/24 Subjective Subjective Interval history: 08/01/2024: Overnight the patient's troponins were trended and initially uptrended from 3.893 to 5.348, 5.886 and have now down trended to 4.596. Patient seen and assessed in hospital bed reporting improvement in presenting symptoms; however, denies having any substernal chest pain/pressure as he did while he first presented to the emergency room. Patient's echo which was obtained showed ejection fraction of 25 to 30% with mild mitral regurgitation, mild tricuspid regurgitation, left pleural effusion in the left and both atrium mildly dilated. Cardiology is planning on doing left heart catheterization on Friday 08/04 and in the meantime recommends that the patient get full dose Lovenox and arterial duplex of the bilateral lower extremities. Will continue to diurese the patient and to monitor for any acute changes. Foot MRI showed early osteomyelitis of the distal first metatarsal of the left foot and early osteomyelitis of the distal phalanx second digit of the right foot; will treat the patient empirically with IV antibiotics and transition to oral antibiotics upon discharge. Exam Vital Signs Temp Pulse Resp BP Pulse Ox O2 Del Method O2 Flow Rate 98.0 F 88 19 114/83 99 Nasal Cannula 5 08/01/24 08:00 08/01/24 08:00 08/01/24 08:00 08/01/24 08:00 08/01/24 08:00 08/01/24 08:00 08/01/24 08:00 Narrative Exam Physical Exam: GENERAL: Awake, answers questions appropriately, appears older than stated age. HEENT: NC/AT. Moist mucosa. PERRLA/EOMI. CARDIO: Heart RRR, no obvious murmurs, JVD noted. PULM: No coughing but on 2L NC, crackles noted on b/l upper lung diehl and distant breath sounds L>R GI: Abdomen soft, NT/ND, +BS. SKIN/MSK/EXT: Patient has RLE ampuations (3rd/4th phalange) and LLE amputation (1st phalange), venous stasis changes. No rashes/edema. NEURO: Oriented x3, no focal neurological deficits noted. Objective Labs 08/02/24 05:16 08/02/24 05:16 Labs: Laboratory Results - last 24 hr 07/31/24 07/31/2425 14:56 15:12 20:55 WBC RBC Hgb Hct MCV MCH MCHC RDW Std Deviation Plt Count Neut % (Auto) Lymph % (Auto) [place] % (Auto) Eos % (Auto) Baso % (Auto) Neut # (Auto) Lymph # (Auto) [place] # (Auto) Eos # (Auto) Baso # (Auto) Immature Gran # (Auto) Absolute Nucleated RBC Immature Gran % Nucleated RBC % Smear Path Review Retic Count (auto) Absolute Retic Immature Retic Fraction Retic Hgb Content CHr PT INR APTT Sodium Potassium Chloride Carbon Dioxide Anion Gap BUN Creatinine Estim Creat Clear Calc eGFR BUN/Creatinine Ratio Glucose Estimated Ave Glu mg/dL Hemoglobin A1c Calculated Osmolality Lactic Acid 2.0 Calcium Corrected Calcium Phosphorus Magnesium Iron TIBC Iron Saturation Unsat Iron Binding Ferritin Total Bilirubin AST ALT Alkaline Phosphatase Troponin I 3.893 H* D 5.348 H* D Total Protein Albumin Globulin Albumin/Globulin Ratio Triglycerides Cholesterol LDL Cholesterol, Calc HDL Cholesterol Cholesterol/HDL Ratio TSH Ur Collection Type Clean Catch Urine Color Lt-Yellow Urine Clarity Clear Urine pH 6.0 Ur Specific [place] 1.010 Urine Protein Negative Urine Glucose (UA) Negative Urine Ketones Negative Urine Blood Negative Urine Nitrite Negative Urine Bilirubin Negative Urine Urobilinogen (Auto) Negative Ur Leukocyte Esterase Negative Urine RBC 1 Urine WBC 1 Ur Squamous Epith Cells < 1 Urine Bacteria None Hyaline Casts < 1 Ur Culture Indicated? Not Indicated Urine Opiates Screen Negative Urine Fentanyl Screen Negative Ur Barbiturates Screen Negative U Amphetamin/Meth Scrn Negative U Benzodiazepines Scrn Negative U Cocaine Metab Screen Negative U Marijuana (THC) Screen Negative Urine Alcohol Negative 08/01/24 08/01/24 02:30 08:07 WBC 8.7 RBC 3.58 L Hgb 9.5 L Hct 28.6 L MCV 80 MCH 26.5 MCHC 33.2 RDW Std Deviation 54.0 H Plt Count 194 Neut % (Auto) 61 Lymph % (Auto) 27 [place] % (Auto) 9 Eos % (Auto) 2 Baso % (Auto) 1 Neut # (Auto) 5.3 Lymph # (Auto) 2.3 [place] # (Auto) 0.8 Eos # (Auto) 0.2 Baso # (Auto) 0.1 Immature Gran # (Auto) 0.03 H Absolute Nucleated RBC 0.00 Immature Gran % 0 Nucleated RBC % 0 Smear Path Review Sent to Pathologist Retic Count (auto) 2.5 H Absolute Retic 89.5 H Immature Retic Fraction 38.6 H Retic Hgb Content CHr 27.2 L PT 13.2 H INR 1.2 APTT 31.5 Sodium 134 L Potassium 3.0 L D Chloride 101 Carbon Dioxide 25.8 Anion Gap 7 BUN 18 Creatinine 1.0 Estim Creat Clear Calc 64.1 eGFR > 60 BUN/Creatinine Ratio [address] Glu mg/dL 148 H Hemoglobin A1c 6.8 H Calculated Osmolality 271 L Lactic Acid Calcium 7.9 L Corrected Calcium 8.4 L Phosphorus 3.3 Magnesium 2.4 Iron 12 L TIBC 330 Iron Saturation 3 L Unsat Iron Binding 318 H Ferritin 28 Total Bilirubin 1.4 H D AST 44 H ALT 15 Alkaline Phosphatase 124 H Troponin I 5.886 H* D 4.596 H* D Total Protein 6.6 Albumin 3.4 Globulin 3.2 Albumin/Globulin Ratio 1.1 L Triglycerides 71 Cholesterol 100 L LDL Cholesterol, Calc 56 HDL Cholesterol 30 L Cholesterol/HDL Ratio 3.3 L TSH 1.84 Ur Collection Type Urine Color Urine Clarity Urine pH Ur Specific [place] Urine Protein Urine Glucose (UA) Urine Ketones Urine Blood Urine Nitrite Urine Bilirubin Urine Urobilinogen (Auto) Ur Leukocyte Esterase Urine RBC Urine WBC Ur Squamous Epith Cells Urine Bacteria Hyaline Casts Ur Culture Indicated? Urine Opiates Screen Urine Fentanyl Screen Ur Barbiturates Screen U Amphetamin/Meth Scrn U Benzodiazepines Scrn U Cocaine Metab Screen U Marijuana (THC) Screen Urine Alcohol ABG Interpretation ABG results: 07/31/24 10:55 VBG pH 7.46 VBG pCO2 33 L VBG pO2 30 VBG Base Excess 0 Quality Measures Quality Measures none Advance care planning discussed with:: patient Assessment & Plan Assessment Current Active Medications: Generic Name Dose Route Start Last Admin Trade Name Freq PRN Reason Stop Dose Admin Acetaminophen 650 mg 07/31/24 13:48 Acetaminophen 325 Mg Tablet PO 08/30/24 13:47 Q6H PRN Pain 1-3 and/or Fever >100.1 Aspirin 81 mg 08/01/24 09:00 08/01/24 10:02 Aspirin Ec 81 Mg Tabec PO 08/31/24 08:59 81 mg QDAY EILEEN Administration Atorvastatin Calcium 40 mg 07/31/24 21:00 07/31/24 20:34 Atorvastatin Calcium 20 Mg Tablet PO 08/30/24 20:59 40 mg HS EILEEN Administration Dextrose 25 ml 07/31/24 13:51 Dextrose 50%-Water Inj 50 Ml Syringe IV 08/30/24 13:50 Q15MIN PRN BG 50-70 responsive npo pt Dextrose 50 ml 07/31/24 13:51 Dextrose 50%-Water Inj 50 Ml Syringe IV 08/30/24 13:50 Q15MIN PRN BG <50 OR BG <70 & pt unresponsive Ferrous Sulfate 325 mg 08/01/24 10:45 08/01/24 13:06 Ferrous Sulf 325 Mg Tablet PO 08/31/24 10:44 325 mg QOD EILEEN Administration Folic Acid 1 mg 07/31/24 21:00 08/01/24 10:02 Folic Acid 1 Mg Tablet PO 08/05/24 20:59 1 mg BID EILEEN Administration Furosemide 40 mg 07/31/24 18:00 08/01/24 05:36 Furosemide Inj 10 Mg/Ml 4ml Vial IVP 08/30/24 17:59 40 mg BIDD EILEEN Administration Glucagon 1 mg 07/31/24 13:51 Glucagon Inj 1 Mg Vial IM Q15MIN PRN BG <70, and no IV access Ceftriaxone Sodium 2 gm/ 50 mls @ 100 mls/hr 07/31/24 16:04 08/01/24 10:01 Sodium Chloride IV 08/07/24 16:03 100 mls/hr QDAY EILEEN Administration Insulin Human Lispro 0 unit 07/31/24 17:00 08/01/24 11:30 Insulin Lispro (Admelog) 1 Unit/0.01 Ml Unit SC 08/30/24 16:59 Not Given ACHS EILEEN Protocol Lorazepam 0.5 mg 07/31/24 13:52 Lorazepam 0.5 Mg Tablet PO 08/05/24 13:51 Q4HR PRN CIWA Score 2-6 Lorazepam 1 mg 07/31/24 13:52 Lorazepam 0.5 Mg Tablet PO 08/05/24 13:51 Q4HR PRN CIWA SCORE 7-11 Lorazepam 2 mg 07/31/24 13:52 Lorazepam 0.5 Mg Tablet PO 08/05/24 13:51 Q4HR PRN CIWA SCORE 12-15 Lorazepam 1 mg 07/31/24 13:52 Lorazepam 2 Mg/Ml Vial IV X1 PRN Breakthrough Agitation Nitroglycerin 0.4 mg 07/31/24 13:54 Nitroglycerin 0.4 Mg Subl Btl #25 SL Q5MIN PRN CHEST PAIN Ondansetron HCl 4 mg 07/31/24 13:48 Ondansetron Inj 2 Mg/Ml Inj 2 Ml IV 08/30/24 13:47 Q6H PRN NAUSEA OR VOMITING Protocol Sennosides 1 tab 08/01/24 09:00 08/01/24 10:02 Senna Tablet PO 08/31/24 08:59 1 tab QDAY EILEEN Administration Protocol Thiamine HCl 100 mg 07/31/24 21:00 08/01/24 10:02 Thiamine 100 Mg Tablet PO 08/05/24 20:59 100 mg BID EILEEN Administration Plan 64-year-old male with past medical history of poorly controlled type 2 diabetes with amputations, hypertension, hyperlipidemia, alcohol use disorder, likely undiagnosed congestive heart failure presenting to the ED on 07/31/2024 with dyspnea on exertion along with chest tightness/pressure will be admitted for cardiomyopathy likely secondary to alcohol, congestive heart failure exacerbation with cardiology consulted for recommendations. #Cardiomyopathy, likely secondary to alcohol use disorder #Congestive heart failure exacerbation #Elevated troponin, NSTEMI type I versus type II, downtrending #Possible bibasilar pneumonia? Patient is presenting to the ED today with exertional dyspnea along with chest pain and signs of orthopnea for over a year Patient states that he follows a PCP for about 3 to 4 months but has not seen a tyre builder in the past regarding his symptoms In the ED, patient is normal/hypotensive and requiring supplemental oxygenation and complaining of substernal chest pressure Troponin elevated at 2.337 and BNP of 2708, magnesium 1.2; ED given aspirin 325 x 1 and IV furosemide 20 x 1 Chest x-ray shows mild to moderate CHF with possible superimposed bibasilar pneumonia and right sided rib fractures. EKG shows normal sinus rhythm with left axis deviation and some ST depressions are noted in the septal leads. Cardiology, Dr. Celaya, has been consulted Echo showed ejection fraction of 25 to 30% with mild mitral regurgitation, mild tricuspid regurgitation, left pleural effusion in the left and both atrium mildly dilated 18.6% Risk of cardiovascular event (coronary or stroke or non-fatal IA or stroke) in next 10 years. Plan: Lovenox 80mg subq Arterial Duplex ordered b/l lower ext Ordered Asp 81 and atorvastatin 40mg hs IV Lasix 40 mg twice daily Strict I's and O's Daily weight Sublingual nitroglycerin, max dose of 3 Keep potassium greater than 4 and magnesium greater than [address] Celaya,cardiology - planning on doing left hearth cath 08/04 #Alcohol use disorder #Hyperbilirubinemia, downtrending Per history patient has alcohol use disorder and drinks beer and tequila; unsure exactly how much at this time History corroborated with the patient's who confirms that the patient does drink but she is also unsure exactly how much On laboratory findings patient has T. bili of 2.2, AST 31, ALT 15, alk phosphatase 135 Patient denies having any abdominal pain at this time and there are no signs of cirrhosis (caput medusae, spider angiomas, ascites) Liver ultrasound Fatty infiltration throughout the live, normal hepatopedal portal venous flow and suspicious for acute acalculous cholecystitis Patient asymptomatic, no abdominal pain noted; Tbili downtrending Plan: CIWA protocol initiated Counseled on alcohol cessation #[id number] type 2 diabetes, poorly controlled #Osteomyelitis of bilateral feet A1c of 6.8 Patient has known history of type 2 diabetes, denies using insulin and is currently on Januvia and metformin at home Last A1c on file is from 2020 and it is 11.4; moreover, current glucose 190 Patient has complications secondary to type 2 diabetes, amputations noted in exam Xray foot shows: Suspicious for osteomyelitis distal left first metatarsal as well and has proximal middle and distal phalanges left second digit Bilateral foot MRI shows early osteomyelitis of the distal first metatarsal of the left foot and early osteomyelitis of the distal phalanx second digit of the right foot Plan: Sliding scale insulin Carb consistent low diet, bedside glucose ACHS Ceftriaxone 2g IV qday empirically, will transition to p.o. antibiotics on discharge Doxycycline 100mg po BID Wound care #SHAHBAZ, improving #Prerenal azotemia Patient presenting today with acute kidney injury with creatinine of 1.2 Baseline creatinine appears to be 0.8-0.9 SHAHBAZ is likely secondary to acute exacerbation of congestive heart failure and cardiomyopathy Plan: IV diuresis is helping with vascular congestion and improve kidney function Will continue monitor with morning labs #Hypertension Patient has history of hypertension and takes some pulm medications, unsure exactly which medications Patient is currently normotensive/hypotensive Plan: Pending med rec Will resume when appropriate #Normocytic anemia, likely anemia of chronic disease Patient is presenting with hemoglobin of 9.9, MCV of 80 Differentials include iron deficiency anemia, anemia of chronic disease, vitamin deficiency, hemolytic anemia No signs of acute GI bleeding noted, patient denies having any hematuria or melena/hematochezia/hematemesis Iron panel shows signs of anemia of chronic disease with low iron but normal ferritin Reticulocyte count elevated Plan: Follow-up on blood smear Started patient on 325 mg of ferrous sulfate every other day Hospital Management: Lines: PIV, Dailey Diet: Cardiac, carb consistent low and fluid restriction 1800 mL Bowel: Senna GI prophylaxis: Not needed DVT prophylaxis: Full dose Lovenox Dispo: Cardiology planning on doing left heart catheterization 08/04/2024, IV antibiotics for osteomyelitis Code: Full Patient seen and assessed with attending Dr. Corcoran and senior resident Dr. Sage Damon, PGY-1 -- ATTESTATION: I saw and examined the patient this morning, and I agree with current management stated by the resident. Will continue to monitor patient during their stay. Patient is a 64-year-old male with past medical history of type 2 diabetes with amputations, hypertension, hyperlipidemia and alcohol use that was admitted on 07/31/2024 with new onset heart failure with exacerbation. Patient came in with shortness of breath and chest pressure for several days prior to admission. He was found to have an elevated troponins that peaked at 5.886. Likely NSTEMI due to demand ischemia. Cardiology on board. Patient is currently getting diuresis and improving with his symptoms. Will continue current management patient scheduled for possible cath on Sunday. Disclaimer: Despite multiple revisions, due to the dictation software being used, the document bellow may not be free of grammatical errors including phonetic/typographic errors. However, this does not deter from our commitment to providing health care in the patient's best interest in mind. Dr. Rodolfo Cazares, PGY-3 Attending Provider Attestation/Addendum I have examined the patient, reviewed labs and imaging findings, discussed the case with the resident(s), and reviewed entered orders. I agree with the plan of care as outlined in this note, with these additional summaries/recommendations: Patient seen at bedside. No acute overnight events. Today patient reports some improvement in his shortness of breath and lower extremity edema. Patient is net negative 3L thus far for hospitalization and has had good response to IV diuresis thus far. Patient admitted for acute hypoxic respiratory failure secondary to CHF exacerbation. Echocardiogram returned revealing EF 25-30% with severe dilated cardiomyopathy and left pleural effusion. Cardiology following. We will continue diuresis today and start initiating GDMT tomorrow. Troponin continued to up-trend overnight and peaked at 5.886 and likely secondary to demand ischemia. Patient received loading dose of aspirin via ER provider and continue aspirin 81 mg as well as atorvastatin 40 mg p.o. at bedtime. Most likely secondary to demand ischemia and appreciate cardiac recs. Of note chest x-ray shows right rib fractures so may be the source of patient's pain although no evidence of fall. Continue pain management as needed. Hyperbilirubinemia present which is possibly secondary to congestive hepatopathy versus alcohol use. Liver ultrasound suspicious for acute acalculous cholecystitis although very unlikely at this time and we will avoid additional workup. Hyperbilirubinemia improving with diuresis. Conitnue insulin sliding scale for diabetes mellitus type 2. A1c 6.8%. We will obtain bilateral MRI of feet to rule out osteomyelitis. Patient updated on the plan and in agreement. All questions answered to satisfaction. Repeat hematology and chemistry panel in AM. Dr. Nilo MD
--- NOTE | 2024-08-01 14:20 | XR_ITS ---
Examination: Arterial duplex lower extremity study. Date and time of exam: August 01, 2024 1528 hours INDICATIONS: Lower leg pain and discoloration 5 years, multiple toe amputations, diabetes diagnosis Findings: Duplex sonographic imaging of the lower extremity arteries using B-mode/[place] scale imaging and Doppler spectral analysis and color flow. Ankle brachial indices have been recorded. Right common femoral artery demonstrates triphasic flow. Right superficial femoral artery demonstrates triphasic flow. Right popliteal artery demonstrates triphasic flow. Right posterior tibial artery demonstrated triphasic flow. Right ankle/brachial index is 1.2. Left common femoral artery demonstrates triphasic flow. Left superficial femoral artery demonstrates triphasic flow. Left popliteal artery demonstrates triphasic flow. Left posterior tibial artery demonstrated triphasic flow. Left ankle/brachial index is 1.4. Impression: No significant obstructive arterial disease
--- NOTE | 2024-08-01 15:01 | ESPR_ITS ---
<Statement entered by Shi Celaya MD - 08/03/24 16:42> I personally evaluated the patient with DR HERNANDES PGY3 and reviewed. Patient is improving gradually has no chest pain or dyspnea will plan cardiac cath coronary angiogram 08/04/2024 continue diuretics, will evaluate for PAD with duplex scan. Troponin elevated possibly 3 vessel CAD with HFREF cardiomyopathy Documentation for date of: 08/01/24 Subjective Subjective Interval history: Overnight events, lab/imaging results, and notes reviewed. Patient examined bedside, reports feeling better today without any chest pain, states his breathing has improved. Noted to be on 3L oxygen this afternoon, was 5L yesterday. Fluid balance continues to be net negative today, around -3L in 24 hours, advise continued diuresis with IV lasix with goal output ~2L per day. Troponin levels noted to peak to 5.886 however now downtrending. Echo reveals EF of 25-30% with signs of mild LA/RA dilation with mild MR/TR and a left pleural effusion. Will recommend beginning therapeutic dose lovenox to be stopped on 08/03 night, in preparation for right and left heart catheterization planned on morning of 08/04. Given patients history of lower extremity amputations and poor peripheral pulses, recommend bilateral lower extremity arterial duplex to assess obstructive/arterial disease. Exam Vital Signs Temp Pulse Resp BP Pulse Ox O2 Del Method O2 Flow Rate 98.0 F 88 19 114/83 99 Nasal Cannula 5 08/01/24 08:00 08/01/24 08:00 08/01/24 08:00 08/01/24 08:00 08/01/24 08:00 08/01/24 08:00 08/01/24 08:00 Narrative Exam General: AOx3, cooperative, in no acute distress HEENT: Atraumatic/normocephalic, ESEQUIEL, neck supple Heart: RRR, S1 and S2 without clicks or murmurs Lungs: Clear on auscultation bilaterally, on 3L NC Abdomen: Soft, nontender. Bowel sounds present on all quadrants Skin: Left foot first digit amputation, right foot second and third digit amputation, no lower extremity edema noted, poor peripheral pulses lower extremity bilaterally, femoral pulses palpable Neuro: No focal neurological deficits noted on appearance Objective Labs 08/01/24 02:30 08/01/24 02:30 Labs: Laboratory Results - last 24 hr 07/31/24 07/31/24 07/31/24 14:56 15:12 20:55 WBC RBC Hgb Hct MCV MCH MCHC RDW Std Deviation Plt Count Neut % (Auto) Lymph % (Auto) [place] % (Auto) Eos % (Auto) Baso % (Auto) Neut # (Auto) Lymph # (Auto) [place] # (Auto) Eos # (Auto) Baso # (Auto) Immature Gran # (Auto) Absolute Nucleated RBC Immature Gran % Nucleated RBC % Smear Path Review Retic Count (auto) Absolute Retic Immature Retic Fraction Retic Hgb Content CHr PT INR APTT Sodium Potassium Chloride Carbon Dioxide Anion Gap BUN Creatinine Estim Creat Clear Calc eGFR BUN/Creatinine Ratio Glucose Estimated Ave Glu mg/dL Hemoglobin A1c Calculated Osmolality Lactic Acid 2.0 Calcium Corrected Calcium Phosphorus Magnesium Iron TIBC Iron Saturation Unsat Iron Binding Ferritin Total Bilirubin AST ALT Alkaline Phosphatase Troponin I 3.893 H* D 5.348 H* D Total Protein Albumin Globulin Albumin/Globulin Ratio Triglycerides Cholesterol LDL Cholesterol, Calc HDL Cholesterol Cholesterol/HDL Ratio TSH Ur Collection Type Clean Catch Urine Color Lt-Yellow Urine Clarity Clear Urine pH 6.0 Ur Specific [place] 1.010 Urine Protein Negative Urine Glucose (UA) Negative Urine Ketones Negative Urine Blood Negative Urine Nitrite Negative Urine Bilirubin Negative Urine Urobilinogen (Auto) Negative Ur Leukocyte Esterase Negative Urine RBC 1 Urine WBC 1 Ur Squamous Epith Cells < 1 Urine Bacteria None Hyaline Casts < 1 Ur Culture Indicated? Not Indicated Urine Opiates Screen Negative Urine Fentanyl Screen Negative Ur Barbiturates Screen Negative U Amphetamin/Meth Scrn Negative U Benzodiazepines Scrn Negative U Cocaine Metab Screen Negative U Marijuana (THC) Screen Negative Urine Alcohol Negative 08/01/24 08/01/24 02:30 08:07 WBC 8.7 RBC 3.58 L Hgb 9.5 L Hct 28.6 L MCV 80 MCH 26.5 MCHC 33.2 RDW Std Deviation 54.0 H Plt Count 194 Neut % (Auto) 61 Lymph % (Auto) 27 [place] % (Auto) 9 Eos % (Auto) 2 Baso % (Auto) 1 Neut # (Auto) 5.3 Lymph # (Auto) 2.3 [place] # (Auto) 0.8 Eos # (Auto) 0.2 Baso # (Auto) 0.1 Immature Gran # (Auto) 0.03 H Absolute Nucleated RBC 0.00 Immature Gran % 0 Nucleated RBC % 0 Smear Path Review Sent to Pathologist Retic Count (auto) 2.5 H Absolute Retic 89.5 H Immature Retic Fraction 38.6 H Retic Hgb Content CHr 27.2 L PT 13.2 H INR 1.2 APTT 31.5 Sodium 134 L Potassium 3.0 L D Chloride 101 Carbon Dioxide 25.8 Anion Gap 7 BUN 18 Creatinine 1.0 Estim Creat Clear Calc 64.1 eGFR > 60 BUN/Creatinine Ratio [address] Glu mg/dL 148 H Hemoglobin A1c 6.8 H Calculated Osmolality 271 L Lactic Acid Calcium 7.9 L Corrected Calcium 8.4 L Phosphorus 3.3 Magnesium 2.4 Iron 12 L TIBC 330 Iron Saturation 3 L Unsat Iron Binding 318 H Ferritin 28 Total Bilirubin 1.4 H D AST 44 H ALT 15 Alkaline Phosphatase 124 H Troponin I 5.886 H* D 4.596 H* D Total Protein 6.6 Albumin 3.4 Globulin 3.2 Albumin/Globulin Ratio 1.1 L Triglycerides 71 Cholesterol 100 L LDL Cholesterol, Calc 56 HDL Cholesterol 30 L Cholesterol/HDL Ratio 3.3 L TSH 1.84 Ur Collection Type Urine Color Urine Clarity Urine pH Ur Specific [place] Urine Protein Urine Glucose (UA) Urine Ketones Urine Blood Urine Nitrite Urine Bilirubin Urine Urobilinogen (Auto) Ur Leukocyte Esterase Urine RBC Urine WBC Ur Squamous Epith Cells Urine Bacteria Hyaline Casts Ur Culture Indicated? Urine Opiates Screen Urine Fentanyl Screen Ur Barbiturates Screen U Amphetamin/Meth Scrn U Benzodiazepines Scrn U Cocaine Metab Screen U Marijuana (THC) Screen Urine Alcohol ABG Interpretation ABG results: 07/31/24 10:55 VBG pH 7.46 VBG pCO2 33 L VBG pO2 30 VBG Base Excess 0 Quality Measures Quality Measures none Advance care planning discussed with:: patient Assessment & Plan Assessment Current Active Medications: Generic Name Dose Route Start Last Admin Trade Name Freq PRN Reason Stop Dose Admin Acetaminophen 650 mg 07/31/24 13:48 Acetaminophen 325 Mg Tablet PO 08/30/24 13:47 Q6H PRN Pain 1-3 and/or Fever >100.1 Aspirin 81 mg 08/01/24 09:00 08/01/24 10:02 Aspirin Ec 81 Mg Tabec PO 08/31/24 08:59 81 mg QDAY EILEEN Administration Atorvastatin Calcium 40 mg 07/31/24 21:00 07/31/24 20:34 Atorvastatin Calcium 20 Mg Tablet PO 08/30/24 20:59 40 mg HS EILEEN Administration Dextrose 25 ml 07/31/24 13:51 Dextrose 50%-Water Inj 50 Ml Syringe IV 08/30/24 13:50 Q15MIN PRN BG 50-70 responsive npo pt Dextrose 50 ml 07/31/24 13:51 Dextrose 50%-Water Inj 50 Ml Syringe IV 08/30/24 13:50 Q15MIN PRN BG <50 OR BG <70 & pt unresponsive Enoxaparin Sodium 80 mg 08/01/24 21:00 Enoxaparin Sod Inj 80 Mg/0.8 Ml Syringe SC 08/03/24 21:00 BID EILEEN Protocol Ferrous Sulfate 325 mg 08/01/24 10:45 08/01/24 13:06 Ferrous Sulf 325 Mg Tablet PO 08/31/24 10:44 325 mg QOD EILEEN Administration Folic Acid 1 mg 07/31/24 21:00 08/01/24 10:02 Folic Acid 1 Mg Tablet PO 08/05/24 20:59 1 mg BID EILEEN Administration Furosemide 40 mg 07/31/24 18:00 08/01/24 05:36 Furosemide Inj 10 Mg/Ml 4ml Vial IVP 08/30/24 17:59 40 mg BIDD EILEEN Administration Glucagon 1 mg 07/31/24 13:51 Glucagon Inj 1 Mg Vial IM Q15MIN PRN BG <70, and no IV access Ceftriaxone Sodium 2 gm/ 50 mls @ 100 mls/hr 07/31/24 16:04 08/01/24 10:01 Sodium Chloride IV 08/07/24 16:03 100 mls/hr QDAY EILEEN Administration Insulin Human Lispro 0 unit 07/31/24 17:00 08/01/24 11:30 Insulin Lispro (Admelog) 1 Unit/0.01 Ml Unit SC 08/30/24 16:59 Not Given ACHS EILEEN Protocol Lorazepam 0.5 mg 07/31/24 13:52 Lorazepam 0.5 Mg Tablet PO 08/05/24 13:51 Q4HR PRN CIWA Score 2-6 Lorazepam 1 mg 07/31/24 13:52 Lorazepam 0.5 Mg Tablet PO 08/05/24 13:51 Q4HR PRN CIWA SCORE 7-11 Lorazepam 2 mg 07/31/24 13:52 Lorazepam 0.5 Mg Tablet PO 08/05/24 13:51 Q4HR PRN CIWA SCORE 12-15 Lorazepam 1 mg 07/31/24 13:52 Lorazepam 2 Mg/Ml Vial IV X1 PRN Breakthrough Agitation Nitroglycerin 0.4 mg 07/31/24 13:54 Nitroglycerin 0.4 Mg Subl Btl #25 SL Q5MIN PRN CHEST PAIN Ondansetron HCl 4 mg 07/31/24 13:48 Ondansetron Inj 2 Mg/Ml Inj 2 Ml IV 08/30/24 13:47 Q6H PRN NAUSEA OR VOMITING Protocol Sennosides 1 tab 08/01/24 09:00 08/01/24 10:02 Senna Tablet PO 08/31/24 08:59 1 tab QDAY EILEEN Administration Protocol Thiamine HCl 100 mg 07/31/24 21:00 08/01/24 10:02 Thiamine 100 Mg Tablet PO 08/05/24 20:59 100 mg BID EILEEN Administration Plan Patient is a 64-year-old male with history of type 2 diabetes mellitus, hypertension, hyperlipidemia, and alcohol use who presented to the ED with concerns of dyspnea on exertion and chest pressure that began roughly 1 month ago. Symptoms noticed to worsen on physical exertion or when laying down. He had plan to follow-up with his PCP, however was waiting for insurance change when his symptoms noticed to become very severe, decided to come to the ED at that time. If you do not get that in the ED, patient was noticed to have imaging of mild to moderate CHF on chest x-ray in the setting of elevated BNP 2708 and elevated troponin 2.337, EKG revealing sinus rhythm without concern of acute HI. Cardiology team was consulted for concern of new onset congestive heart failure. #New-onset congestive heart failure with reduced ejection fraction (EF 25-30%) #Troponin elevation in setting of CHF and demand ischemia, improving #Dilated cardiomyopathy with severe LV dysfunction #Possible ischemic cardiomyopathy - Troponin 2.337 and BNP 2708 on admission - Troponin peaked to 5.886, down-trending to 4.596 - EKG revealing sinus rhythm, low suspicion for acute HI - CXR revealing mild-moderate CHF, with right sided rib fractures - Orthopnea and dyspnea on exertion reported by patient on admission, no lower extremity edema noted - Echo (July 2024): Dilated cardiomyopathy with severe LV dysfunction LVEF 25- 30%. LA/RA mild dilation, mild MR/TR. Left pleural effusion Plan: - IV lasix 40mg BID with goal urine output ~2L in 24 hours - Strict I/Os - Fluid restriction 9021-6099 cc/daily - Hold on starting beta blockers for now - Given echo findings and clinical status, concern for ischemic cardiomyopathy and multi-vessel disease. Recommend right and left heart catheterization on 08/04 - Advise starting therapeutic dose Lovenox. Hold on 08/03 evening dose in preparation for catheterization on 08/04 #Concern for peripheral arterial disease - Patient has history of bilateral lower extremity amputations - Physical exam on 08/01 reveals poor lower extremity peripheral pulses. Femoral pulses palpable bilaterally Plan: - Advise bilateral lower extremity arterial duplex study #Alcohol use disorder #[id number] #Hx of T2DM - Management per primary team Patient case discussed with attending physician Dr. Yomi Hernandes, DO PGY-3
[2024-08-01 16:08] LABS: Albumin, Serum 3.5 gm/dL (3.4-4.8); Anion Gap 9 (7-16); BUN/Creatinine Ratio 22 Ratio (12-20); Blood Urea Nitrogen 22 mg/dL (9-23); Calcium 8.1 mg/dL (8.3-10.6); Calcium (Corrected) 8.5 mg/dL (8.5-10.1); Carbon Dioxide 26.3 mMol/L (20.0-31.0); Chloride 99 mMol/L (98-107); Estimated Creatinine Clearance 68.9 mL/min (>60); Glucose 151 mg/dL (74-106); Osmolality,Calculated 274 (275-295); Phosphorous 3.2 mg/dL (2.4-5.1); Potassium 3.5 mMol/L (3.4-5.1); Sodium 134 mMol/L (136-145); eGFR > 60 See Note
[2024-08-01 16:10] LABS: Troponin I 3.296 ng/mL (0.0-0.045)
[2024-08-01] MEDS: INSULIN LISPRO (AdmeLOG) 1 UNIT/0.01 ML UNIT SC ×2 (17:10→20:42)
--- NOTE | 2024-08-01 17:18 | PC.NURSE ---
Per Dr. Damon hold 1800 scheduled dose of lasix related to BP of 99/68. Lasix held.
[2024-08-01] MEDS: ENOXAPARIN SOD INJ 80 MG/0.8 ML SYRINGE SC (20:45)
[2024-08-01] MEDS: DOXYCYCLINE 100 MG TABLET PO (20:45)
[2024-08-01] MEDS: ATORVASTATIN CALCIUM 20 MG TABLET 40 MG PO (20:45)
[2024-08-02] VITALS (10 sets, daily range): BP systolic 94–102; BP diastolic 64–74; PULSE 65–82; RESP 14–24; TEMP 36.2–36.7; O2SAT 96–99; BMI 26.3
[2024-08-02 05:44] LABS: Basophils # (Auto) 0.1 Thou/mm3 (0.0-0.2); Basophils % (Auto) 1 % (0-2.5); Eosinophils # (Auto) 0.3 Thou/mm3 (0.0-0.5); Eosinophils % (Auto) 4 % (0-10); Hematocrit 28.5 % (41.0-53.0); Hemoglobin 9.4 g/dL (13.5-16.0); Immature Granulocytes % (Auto) 0 % (0-0); Immature Granulocytes Auto 0.01 Thou/mm3 (0.00-0.00); Lymphocytes # (Auto) 2.1 Thou/mm3 (1.0-4.8); Lymphocytes % (Auto) 27 % (10-50); Mean Corpuscular Hemoglobin 26.7 pg (25.0-35.0); Mean Corpuscular Volume 81 fL (80-100); Monocytes # (Auto) 1.1 Thou/mm3 (0.0-0.8); Monocytes % (Auto) 15 % (0-12); Neutrophils # (Auto) 4.2 Thou/mm3 (1.8-7.7); Neutrophils % (Auto) 54 % (37-80); Nucleated Red Blood Cell % 0 /100 WBC (0); Platelet Count 266 Thou/mm3 (140-440); RDW Standard Deviation 54.6 fL (35.1-43.9); Red Blood Count 3.52 Miln/mm3 (4.50-5.90); White Blood Count 7.7 Thou/mm3 (3.8-10.6)
--- NOTE | 2024-08-02 05:54 | PC.NURSE ---
BP 97/71, HR 71, Dr. Romo was made aware. Per MD hold 0600 dose of Lasix IV.
[2024-08-02 05:55] LABS: Sed Rate (ESR) 36 mm/hr (0-20)
[2024-08-02 06:19] LABS: Alanine Aminotransferase 11 U/L (10-49); Albumin, Serum 3.5 gm/dL (3.4-4.8); Albumin/Globulin Ratio 1.2 (1.2-2.2); Alkaline Phosphatase 121 U/L (46-116); Anion Gap 7 (7-16); Aspartate Amino Transferase 27 U/L (0-34); BUN/Creatinine Ratio 24 Ratio (12-20); Blood Urea Nitrogen 22 mg/dL (9-23); Calcium 8.2 mg/dL (8.3-10.6); Calcium (Corrected) 8.6 mg/dL (8.5-10.1); Carbon Dioxide 26.8 mMol/L (20.0-31.0); Chloride 103 mMol/L (98-107); Creatinine (Component) 0.9 mg/dL (0.6-1.3); Estimated Creatinine Clearance 74.3 mL/min (>60); Glucose 114 mg/dL (74-106); Osmolality,Calculated 278 (275-295); Sodium 137 mMol/L (136-145); Total Protein 6.5 gm/dL (5.7-8.2); eGFR > 60 See Note
[2024-08-02] MEDS: ASPIRIN EC 81 MG TABEC PO (09:02)
[2024-08-02] MEDS: cefTRIAXone 2 GM in SODIUM CHLORIDE 0.9% (Popper) 50 ML IV (09:02)
[2024-08-02] MEDS: THIAMINE 100 MG TABLET PO ×2 (09:02→20:15)
[2024-08-02] MEDS: SENNA TABLET 1 TAB PO (09:02)
[2024-08-02] MEDS: FOLIC ACID 1 MG TABLET PO ×2 (09:02→20:15)
[2024-08-02] MEDS: DOXYCYCLINE 100 MG TABLET PO ×2 (09:02→20:15)
[2024-08-02] MEDS: ENOXAPARIN SOD INJ 80 MG/0.8 ML SYRINGE SC ×2 (09:03→20:15)
[2024-08-02] MEDS: INSULIN LISPRO (AdmeLOG) 1 UNIT/0.01 ML UNIT SC ×2 (11:57→17:48)
--- NOTE | 2024-08-02 13:02 | ESPR_ITS ---
<Statement entered by Camelia Nunez MD - 08/03/24 00:45> Patient was seen and examined by me personally. I have directly supervised and reviewed documentation by the team resident and agree with its findings with any exceptions or additional findings as below. Plan of care was discussed with the attending, Dr. Corcoran. Patient seen this morning at bedside, reported feeling well, denying any chest pain or other symptoms. CIWA remains at 0 and patient is calm and pleasant. He is on 3L nasal cannula saturating well, mild lower lobe crackles heard bilaterally. Last night and this morning, doses of Lasix 40 mg IV were held due to soft BP in the 90s/60s. Will continue diuresis as BP permits. Urine output has been appropriate with 2L out in the last 24 hours. Patient is planned for left and right cardiac catheterization with Dr. Celaya on Sunday. Meanwhile his troponin has downtrended and he is on full dose anticoagulation Lovenox. MRI of bilateral feet shows areas of early osteomyelitis in the digits. Patient has previously followed with the [facility] wound care clinic, last visits from last December 2023. Patient likely has had chronic osteomyelitis. Will consult Infectious Disease for input regarding antibiotic regimen. Will continue on IV ceftriaxone and PO doxycycline for now. Camelia Nunez, PGY-2 Documentation for date of: 08/02/24 Subjective Subjective Interval history: 08/02/2024: No acute overnight events to report. Patient seen and assessed in hospital bed remains asymptomatic and denies having any concerning cardiac symptoms such as chest pain, shortness of breath or palpitations. Cardiology has tentatively scheduled to do left and right heart catheterization for the patient on Friday 08/04. In the meantime, patient is being treated with full dose Lovenox, aspirin/statin and IV diuretics if blood pressure permits. Patient also being treated with empiric antibiotic regimen for osteomyelitis; will defer bone biopsy at this time per radiology recommendations as it is unnecessary. Consulting infectious disease for recommendations regarding the patient acute osteomyelitis; however, patient also has chronic osteomyelitis and possible need for PICC line. Will continue to monitor the patient for any acute changes. Exam Vital Signs Temp Pulse Resp BP Pulse Ox O2 Del Method O2 Flow Rate 97.7 F 68 14 95/66 99 Nasal Cannula 3 08/02/24 08:00 08/02/24 08:00 08/02/24 08:00 08/02/24 08:00 08/02/24 08:00 08/02/24 08:00 08/02/24 08:00 Narrative Exam Physical Exam: GENERAL: Awake, answers questions appropriately, appears older than stated age. HEENT: NC/AT. Moist mucosa. PERRLA/EOMI. CARDIO: Heart RRR, no obvious murmurs, JVD noted. PULM: No coughing but on 2L NC, crackles noted on b/l upper lung diehl and distant breath sounds L>R GI: Abdomen soft, NT/ND, +BS. SKIN/MSK/EXT: Patient has RLE ampuations (3rd/4th phalange) and LLE amputation (1st phalange), venous stasis changes. No rashes/edema. NEURO: Oriented x3, no focal neurological deficits noted. Objective Labs 08/03/24 06:01 08/03/24 06:01 Labs: Laboratory Results - last 24 hr 08/01/24 08/02/24 15:11 05:16 WBC 7.7 RBC 3.52 L Hgb 9.4 L Hct 28.5 L MCV 81 MCH 26.7 MCHC 33.0 RDW Std Deviation 54.6 H Plt Count 266 D Neut % (Auto) 54 Lymph % (Auto) 27 Amador % (Auto) 15 H Eos % (Auto) 4 Baso % (Auto) 1 Neut # (Auto) 4.2 Lymph # (Auto) 2.1 Amador # (Auto) 1.1 H Eos # (Auto) 0.3 Baso # (Auto) 0.1 Immature Gran # (Auto) 0.01 H Absolute Nucleated RBC 0.00 Immature Gran % 0 Nucleated RBC % 0 ESR 36 H Sodium 134 L 137 Potassium 3.5 D 4.0 D Chloride 99 103 Carbon Dioxide 26.3 26.8 Anion Gap 9 7 BUN 22 22 Creatinine 1.0 0.9 Estim Creat Clear Calc 68.9 74.3 eGFR > 60 > 60 BUN/Creatinine Ratio 22 H 24 H Glucose 151 H 114 H Calculated Osmolality 274 L 278 Calcium 8.1 L 8.2 L Corrected Calcium 8.5 8.6 Phosphorus 3.2 Total Bilirubin 1.0 AST 27 ALT 11 Alkaline Phosphatase 121 H Troponin I 3.296 H* D C-Reactive Prot, Quant 2.0 H Total Protein 6.5 Albumin 3.5 3.5 Globulin 3.0 Albumin/Globulin Ratio 1.2 ABG Interpretation ABG results: 07/31/24 10:55 VBG pH 7.46 VBG pCO2 33 L VBG pO2 30 VBG Base Excess 0 Quality Measures Quality Measures none Advance care planning discussed with:: patient Assessment & Plan Assessment Current Active Medications: Generic Name Dose Route Start Last Admin Trade Name Freq PRN Reason Stop Dose Admin Acetaminophen 650 mg 07/31/24 13:48 Acetaminophen 325 Mg Tablet PO 08/30/24 13:47 Q6H PRN Pain 1-3 and/or Fever >100.1 Aspirin 81 mg 08/01/24 09:00 08/02/24 09:02 Aspirin Ec 81 Mg Tabec PO 08/31/24 08:59 81 mg QDAY EILEEN Administration Atorvastatin Calcium 40 mg 07/31/24 21:00 08/01/24 20:45 Atorvastatin Calcium 20 Mg Tablet PO 08/30/24 20:59 40 mg HS EILEEN Administration Dextrose 25 ml 07/31/24 13:51 Dextrose 50%-Water Inj 50 Ml Syringe IV 08/30/24 13:50 Q15MIN PRN BG 50-70 responsive npo pt Dextrose 50 ml 07/31/24 13:51 Dextrose 50%-Water Inj 50 Ml Syringe IV 08/30/24 13:50 Q15MIN PRN BG <50 OR BG <70 & pt unresponsive Doxycycline Hyclate 100 mg 08/01/24 21:00 08/02/24 09:02 Doxycycline 100 Mg Tablet PO 08/08/24 20:59 100 mg BID EILEEN Administration Enoxaparin Sodium 80 mg 08/01/24 21:00 08/02/24 09:03 Enoxaparin Sod Inj 80 Mg/0.8 Ml Syringe SC 08/03/24 21:00 80 mg BID EILEEN Administration Protocol Ferrous Sulfate 325 mg 08/01/24 10:45 08/01/24 13:06 Ferrous Sulf 325 Mg Tablet PO 08/31/24 10:44 325 mg QOD EILEEN Administration Folic Acid 1 mg 07/31/24 21:00 08/02/24 09:02 Folic Acid 1 Mg Tablet PO 08/05/24 20:59 1 mg BID EILEEN Administration Furosemide 40 mg 07/31/24 18:00 08/02/24 05:55 Furosemide Inj 10 Mg/Ml 4ml Vial IVP 08/30/24 17:59 Not Given BIDD EILEEN Glucagon 1 mg 07/31/24 13:51 Glucagon Inj 1 Mg Vial IM Q15MIN PRN BG <70, and no IV access Ceftriaxone Sodium 2 gm/ 50 mls @ 100 mls/hr 07/31/24 16:04 08/02/24 10:47 Sodium Chloride IV 08/07/24 16:03 Infused QDAY EILEEN Infusion Insulin Human Lispro 0 unit 07/31/24 17:00 08/02/24 11:57 Insulin Lispro (Admelog) 1 Unit/0.01 Ml Unit SC 08/30/24 16:59 2 unit A[facility]S [facility] Administration Protocol Lorazepam 0.5 mg 07/31/24 13:52 Lorazepam 0.5 Mg Tablet PO 08/05/24 13:51 Q4HR PRN CIWA Score 2-6 Lorazepam 1 mg 07/31/24 13:52 Lorazepam 0.5 Mg Tablet PO 08/05/24 13:51 Q4HR PRN CIWA SCORE 7-11 Lorazepam 2 mg 07/31/24 13:52 Lorazepam 0.5 Mg Tablet PO 08/05/24 13:51 Q4HR PRN CIWA SCORE 12-15 Lorazepam 1 mg 07/31/24 13:52 Lorazepam 2 Mg/Ml Vial IV X1 PRN Breakthrough Agitation Nitroglycerin 0.4 mg 07/31/24 13:54 Nitroglycerin 0.4 Mg Subl Btl #25 SL Q5MIN PRN CHEST PAIN Ondansetron HCl 4 mg 07/31/24 13:48 Ondansetron Inj 2 Mg/Ml Inj 2 Ml IV 08/30/24 13:47 Q6H PRN NAUSEA OR VOMITING Protocol Sennosides 1 tab 08/01/24 09:00 08/02/24 09:02 Senna Tablet PO 08/31/24 08:59 1 tab QDAY [facility] Administration Protocol Thiamine HCl 100 mg 07/31/24 21:00 08/02/24 09:02 Thiamine 100 Mg Tablet PO 08/05/24 20:59 100 mg BID [facility] Administration Plan 64-year-old male with past medical history of poorly controlled type 2 diabetes with amputations, hypertension, hyperlipidemia, alcohol use disorder, likely undiagnosed congestive heart failure presenting to the ED on 07/31/2024 with dyspnea on exertion along with chest tightness/pressure will be admitted for cardiomyopathy likely secondary to alcohol, congestive heart failure exacerbation with cardiology consulted for recommendations. #Cardiomyopathy, likely secondary to alcohol use disorder #Congestive heart failure exacerbation #Elevated troponin, NSTEMI type I versus type II, downtrending #Possible bibasilar pneumonia? Patient is presenting to the ED today with exertional dyspnea along with chest pain and signs of orthopnea for over a year Patient states that he follows a PCP for about 3 to 4 months but has not seen a nozzleman in the past regarding his symptoms In the ED, patient is normal/hypotensive and requiring supplemental oxygenation and complaining of substernal chest pressure Troponin elevated at 2.337 and BNP of 2708, magnesium 1.2; ED given aspirin 325 x 1 and IV furosemide 20 x 1 Chest x-ray shows mild to moderate CHF with possible superimposed bibasilar pneumonia and right sided rib fractures. EKG shows normal sinus rhythm with left axis deviation and some ST depressions are noted in the septal leads. Cardiology, Dr. Celaya, has been consulted Echo showed ejection fraction of 25 to 30% with mild mitral regurgitation, mild tricuspid regurgitation, left pleural effusion in the left and both atrium mildly dilated 18.6% Risk of cardiovascular event (coronary or stroke or non-fatal LA or stroke) in next 10 years. Arterial Duplex ordered b/l lower ext shows no signs of arterial disease Plan: Lovenox 80mg subq Continue asp 81 and atorvastatin 40mg hs IV Lasix 40 mg twice daily Strict I's and O's Daily weight Sublingual nitroglycerin, max dose of 3 Keep potassium greater than 4 and magnesium greater than [address] Celaya,cardiology - planning on doing right and left hearth cath 08/04 #Alcohol use disorder #Hyperbilirubinemia, downtrending Per history patient has alcohol use disorder and drinks beer and tequila; unsure exactly how much at this time History corroborated with the patient's who confirms that the patient does drink but she is also unsure exactly how much On laboratory findings patient has T. bili of 2.2, AST 31, ALT 15, alk phosphatase 135 Patient denies having any abdominal pain at this time and there are no signs of cirrhosis (caput medusae, spider angiomas, ascites) Liver ultrasound Fatty infiltration throughout the live, normal hepatopedal portal venous flow and suspicious for acute acalculous cholecystitis Patient asymptomatic, no abdominal pain noted; Tbili downtrending Plan: CIWA protocol initiated, patient has not required any Ativan and WA has been 0 Counseled on alcohol cessation #[id number] type 2 diabetes, poorly controlled #Osteomyelitis of bilateral feet A1c of 6.8 Patient has known history of type 2 diabetes, denies using insulin and is currently on Januvia and metformin at home Last A1c on file is from 2020 and it is 11.4; moreover, current glucose 190 Patient has complications secondary to type 2 diabetes, amputations noted in exam Xray foot shows: Suspicious for osteomyelitis distal left first metatarsal as well and has proximal middle and distal phalanges left second digit Bilateral foot MRI shows early osteomyelitis of the distal first metatarsal of the left foot and early osteomyelitis of the distal phalanx second digit of the right foot Plan: Sliding scale insulin Carb consistent low diet, bedside glucose ACHS Ceftriaxone 2g IV qday empirically, will transition to p.o. antibiotics on discharge Doxycycline 100mg po BID Infectious disease consulted for antibiotic stewardship and possible PICC line need versus p.o. regimen Wound care #SHAHBAZ, improving #Prerenal azotemia Patient presenting today with acute kidney injury with creatinine of 1.2 Baseline creatinine appears to be 0.8-0.9 SHAHBAZ is likely secondary to acute exacerbation of congestive heart failure and cardiomyopathy Plan: IV diuresis is helping with vascular congestion and improve kidney function Will continue monitor with morning labs #Hypertension Patient has history of hypertension and takes some pulm medications, unsure exactly which medications Patient is currently normotensive/hypotensive Plan: Pending med rec Will resume when appropriate #Normocytic anemia, likely anemia of chronic disease Patient is presenting with hemoglobin of 9.9, MCV of 80 Differentials include iron deficiency anemia, anemia of chronic disease, vitamin deficiency, hemolytic anemia No signs of acute GI bleeding noted, patient denies having any hematuria or melena/hematochezia/hematemesis Iron panel shows signs of anemia of chronic disease with low iron but normal ferritin Reticulocyte count elevated Plan: Follow-up on blood smear Continue 325 mg of ferrous sulfate every other day Hospital Management: Lines: PIV, Dailey Diet: Cardiac, carb consistent low and fluid restriction 1800 mL Bowel: Senna GI prophylaxis: Not needed DVT prophylaxis: Full dose Lovenox Dispo: Cardiology planning on doing left heart catheterization 08/04/2024, IV antibiotics for osteomyelitis Code: Full Patient seen and assessed with attending Dr. Corcoran and senior resident Dr. Enrique Damon, PGY-1 Attending Provider Attestation/Addendum I have examined the patient, reviewed labs and imaging findings, discussed the case with the resident(s), and reviewed entered orders. I agree with the plan of care as outlined in this note, with these additional summaries/recommendations: Patient seen at bedside. No acute overnight events. Patient reports improvement in his shortness of breath and lower extremity edema. Patient has been titrated down to 3L NC and continue to wean as tolerated. Patient admitted for acute hypoxic respiratory failure secondary to CHF exacerbation. Echocardiogram returned revealing EF 25-30% with severe dilated cardiomyopathy and left pleural effusion. Cardiology following. We will continue diuresis and have been unable to start GDMT for CHF given soft blood pressures. Patient was found to have elevated troponin on admission which is most likely secondary to NSTEMI Type I vs II. Continue therapeutic lovenox, aspirin 81mg PO QD, and atorvastatin. Patient will go for cardiac cath on Sunday08/04/24. Of note chest x-ray shows right rib fractures so may be the source of patient's pain although no evidence of fall. Continue pain management as needed. Hyperbilirubinemia present which is possibly secondary to congestive hepatopathy. Hyperbili improving. Liver ultrasound suspicious for acute acalculous cholecystitis although very unlikely at this time and we will avoid additional workup. Hyperbilirubinemia improving with diuresis. Conitnue insulin sliding scale for diabetes mellitus type 2. A1c 6.8%. MRI shows bilateral osteomyelitis of feet. Patient has previously declined surgical intervention and follows at wound clinic. We discuss with patient if he would like to undergo extended course of IV abx. Patient updated on the plan and in agreement. All questions answered to satisfaction. Repeat hematology and chemistry panel in AM. Dr. Nilo MD
[2024-08-02] MEDS: FUROSEMIDE INJ 10 MG/ML 4ML VIAL 40 MG IVP (17:48)
[2024-08-02] MEDS: ATORVASTATIN CALCIUM 20 MG TABLET 40 MG PO (20:15)
[2024-08-03] VITALS (10 sets, daily range): BP systolic 91–100; BP diastolic 53–78; PULSE 64–81; RESP 13–16; TEMP 36–36.8; O2SAT 94–100; BMI 25.6
--- NOTE | 2024-08-03 06:03 | PC.NURSE ---
Notify MD Rosas of pt's BP 97/78 HR 81. said to hold the 0600 dose of Lasix.
[2024-08-03 06:35] LABS: Basophils % (Auto) 1 % (0-2.5); Eosinophils # (Auto) 0.3 Thou/mm3 (0.0-0.5); Eosinophils % (Auto) 4 % (0-10); Hematocrit 29.6 % (41.0-53.0); Hemoglobin 9.6 g/dL (13.5-16.0); Immature Granulocytes % (Auto) 0 % (0-0); Immature Granulocytes Auto 0.02 Thou/mm3 (0.00-0.00); Lymphocytes % (Auto) 29 % (10-50); Mean Corpuscular HGB Conc 32.4 g/dl (31.0-37.0); Mean Corpuscular Hemoglobin 26.5 pg (25.0-35.0); Mean Corpuscular Volume 82 fL (80-100); Monocytes # (Auto) 1.1 Thou/mm3 (0.0-0.8); Monocytes % (Auto) 15 % (0-12); Neutrophils # (Auto) 3.6 Thou/mm3 (1.8-7.7); Neutrophils % (Auto) 51 % (37-80); Nucleated Red Blood Cell % 0 /100 WBC (0); Platelet Count 233 Thou/mm3 (140-440); RDW Standard Deviation 54.6 fL (35.1-43.9); Red Blood Count 3.62 Miln/mm3 (4.50-5.90); White Blood Count 7.1 Thou/mm3 (3.8-10.6)
[2024-08-03 06:48] LABS: INR 1.2 (0.9-1.3); Partial Thromboplastin Time 33.3 Seconds (22.0-36.0); Prothrombin Time 12.8 Seconds (9.0-12.2)
[2024-08-03 07:09] LABS: Alanine Aminotransferase 8 U/L (10-49); Albumin, Serum 3.5 gm/dL (3.4-4.8); Albumin/Globulin Ratio 1.2 (1.2-2.2); Alkaline Phosphatase 117 U/L (46-116); Anion Gap 7 (7-16); Aspartate Amino Transferase 20 U/L (0-34); BUN/Creatinine Ratio 20 Ratio (12-20); Bilirubin,Total 0.7 mg/dL (0.3-1.2); Blood Urea Nitrogen 18 mg/dL (9-23); Calcium 8.8 mg/dL (8.3-10.6); Calcium (Corrected) 9.2 mg/dL (8.5-10.1); Carbon Dioxide 28.5 mMol/L (20.0-31.0); Chloride 103 mMol/L (98-107); Creatinine (Component) 0.9 mg/dL (0.6-1.3); Estimated Creatinine Clearance 68.5 mL/min (>60); Glucose 131 mg/dL (74-106); Osmolality,Calculated 279 (275-295); Potassium 3.9 mMol/L (3.4-5.1); Sodium 138 mMol/L (136-145); Total Protein 6.5 gm/dL (5.7-8.2); eGFR > 60 See Note
[2024-08-03] MEDS: SENNA TABLET 1 TAB PO (08:38)
[2024-08-03] MEDS: THIAMINE 100 MG TABLET PO ×2 (08:38→21:24)
[2024-08-03] MEDS: FERROUS SULF 325 MG TABLET PO (08:38)
[2024-08-03] MEDS: ASPIRIN EC 81 MG TABEC PO (08:38)
[2024-08-03] MEDS: FOLIC ACID 1 MG TABLET PO ×2 (08:38→21:24)
[2024-08-03] MEDS: DOXYCYCLINE 100 MG TABLET PO ×2 (08:38→21:24)
[2024-08-03] MEDS: ENOXAPARIN SOD INJ 80 MG/0.8 ML SYRINGE SC ×2 (08:39→21:25)
[2024-08-03] MEDS: cefTRIAXone 2 GM in SODIUM CHLORIDE 0.9% (Popper) 50 ML IV (08:40)
[2024-08-03] MEDS: FUROSEMIDE INJ 10 MG/ML 4ML VIAL 40 MG IVP (10:49)
[2024-08-03] MEDS: MIDODRINE 2.5 MG TABLET PO (10:51)
[2024-08-03] MEDS: INSULIN LISPRO (AdmeLOG) 1 UNIT/0.01 ML UNIT SC ×3 (11:38→21:31)
--- NOTE | 2024-08-03 14:33 | PD.RESPRO ---
Documentation for date of: 08/03/24 Subjective Subjective Interval history: This morning, due to BP 98/62 Lasix 40 mg IV dose was held. Dose of midodrine 2.5 mg given later this morning along with 40 mg IV Lasix.?Patient seen and examined at bedside this AM.?He reports feeling well, denies any chest pain. Patient states that he has been feeling some congestion and blowing his nose however. Labs and vitals were reviewed.?He remains on about 4L O2. Urine output in [place] is good with about 3L output in the last 24 hours and net -1.4L balance this hospitalization. Will plan to decrease dose of Lasix to 20 mg IV BID. Added prn midodrine 2.5 mg as needed if SBP < 95 or DBP < 60 so that patient may continue to be diuresed. Discontinued CIWA protocol as patient CIWA has remained at 0. No further complaints at this time. Review of systems otherwise negative except what is mentioned above. Exam Vital Signs Temp Pulse Resp BP Pulse Ox O2 Del Method O2 Flow Rate 97.9 F 79 15 96/72 94 L Nasal Cannula 4 08/03/24 12:00 08/03/24 12:00 08/03/24 12:00 08/03/24 12:00 08/03/24 12:00 08/03/24 12:00 08/03/24 12:00 Narrative Exam Physical Exam General: Awake and in no acute distress. Conversational and non-toxic appearing. HEENT: Normocephalic, atraumatic, mucous membranes moist. On nasal cannula. Heart: Regular rate and rhythm, no murmurs. Lungs: Mild lower lobe crackles bilaterally. Abdomen: Soft, nondistended, nontender, positive bowel sounds. ?No guarding or rebound tenderness. Neurologic: Alert and oriented x3, no gross neurological deficit, and patient able to move all 4 extremities. Extremities: No bilateral lower extremity edema. Amputations present on the right 3rd and 4th toe and left 1st toe. Superficial ulcers on the plantar aspect of foot. Skin: No rash or ecchymoses. Objective Labs 08/03/24 06:01 08/03/24 06:01 Labs: Laboratory Results - last 24 hr 08/03/24 06:01 WBC 7.1 RBC 3.62 L Hgb 9.6 L Hct 29.6 L MCV 82 MCH 26.5 MCHC 32.4 RDW Std Deviation 54.6 H Plt Count 233 D Neut % (Auto) 51 Lymph % (Auto) 29 [place] % (Auto) 15 H Eos % (Auto) 4 Baso % (Auto) 1 Neut # (Auto) 3.6 Lymph # (Auto) 2.0 [place] # (Auto) 1.1 H Eos # (Auto) 0.3 Baso # (Auto) 0.0 Immature Gran # (Auto) 0.02 H Absolute Nucleated RBC 0.00 Immature Gran % 0 Nucleated RBC % 0 PT 12.8 H INR 1.2 APTT 33.3 Sodium 138 Potassium 3.9 Chloride 103 Carbon Dioxide 28.5 Anion Gap 7 BUN 18 Creatinine 0.9 Estim Creat Clear Calc 68.5 eGFR > 60 BUN/Creatinine Ratio 20 Glucose 131 H Calculated Osmolality 279 Calcium 8.8 Corrected Calcium 9.2 Total Bilirubin 0.7 AST 20 ALT 8 L Alkaline Phosphatase 117 H Total Protein 6.5 Albumin 3.5 Globulin 3.0 Albumin/Globulin Ratio 1.2 ABG Interpretation ABG results: 07/31/24 10:55 VBG pH 7.46 VBG pCO2 33 L VBG pO2 30 VBG Base Excess 0 Quality Measures Quality Measures none Advance care planning discussed with:: patient Assessment & Plan Assessment Current Active Medications: Generic Name Dose Route Start Last Admin Trade Name Freq PRN Reason Stop Dose Admin Acetaminophen 650 mg 07/31/24 13:48 Acetaminophen 325 Mg Tablet PO 08/30/24 13:47 Q6H PRN Pain 1-3 and/or Fever >100.1 Aspirin 81 mg 08/01/24 09:00 08/03/24 08:38 Aspirin Ec 81 Mg Tabec PO 08/31/24 08:59 81 mg QDAY EILEEN Administration Atorvastatin Calcium 40 mg 07/31/24 21:00 08/02/24 20:15 Atorvastatin Calcium 20 Mg Tablet PO 08/30/24 20:59 40 mg HS EILEEN Administration Dextrose 25 ml 07/31/24 13:51 Dextrose 50%-Water Inj 50 Ml Syringe IV 08/30/24 13:50 Q15MIN PRN BG 50-70 responsive npo pt Dextrose 50 ml 07/31/24 13:51 Dextrose 50%-Water Inj 50 Ml Syringe IV 08/30/24 13:50 Q15MIN PRN BG <50 OR BG <70 & pt unresponsive Doxycycline Hyclate 100 mg 08/01/24 21:00 08/03/24 08:38 Doxycycline 100 Mg Tablet PO 08/08/24 20:59 100 mg BID EILEEN Administration Enoxaparin Sodium 80 mg 08/01/24 21:00 08/03/24 08:39 Enoxaparin Sod Inj 80 Mg/0.8 Ml Syringe SC 08/03/24 21:00 80 mg BID EILEEN Administration Protocol Ferrous Sulfate 325 mg 08/01/24 10:45 08/03/24 08:38 Ferrous Sulf 325 Mg Tablet PO 08/31/24 10:44 325 mg QOD EILEEN Administration Folic Acid 1 mg 07/31/24 21:00 08/03/24 08:38 Folic Acid 1 Mg Tablet PO 08/05/24 20:59 1 mg BID EILEEN Administration Furosemide 40 mg 07/31/24 18:00 08/03/24 06:05 Furosemide Inj 10 Mg/Ml 4ml Vial IVP 08/30/24 17:59 Not Given BIDD EILEEN Glucagon 1 mg 07/31/24 13:51 Glucagon Inj 1 Mg Vial IM Q15MIN PRN BG <70, and no IV access Ceftriaxone Sodium 2 gm/ 50 mls @ 100 mls/hr 07/31/24 16:04 08/03/24 08:40 Sodium Chloride IV 08/07/24 16:03 100 mls/hr QDAY EILEEN Administration Insulin Human Lispro 0 unit 07/31/24 17:00 08/03/24 11:38 Insulin Lispro (Admelog) 1 Unit/0.01 Ml Unit SC 08/30/24 16:59 2 unit ACHS EILEEN Administration Protocol Lorazepam 0.5 mg 07/31/24 13:52 Lorazepam 0.5 Mg Tablet PO 08/05/24 13:51 Q4HR PRN CIWA Score 2-6 Lorazepam 1 mg 07/31/24 13:52 Lorazepam 0.5 Mg Tablet PO 08/05/24 13:51 Q4HR PRN CIWA SCORE 7-11 Lorazepam 2 mg 07/31/24 13:52 Lorazepam 0.5 Mg Tablet PO 08/05/24 13:51 Q4HR PRN CIWA SCORE 12-15 Lorazepam 1 mg 07/31/24 13:52 Lorazepam 2 Mg/Ml Vial IV X1 PRN Breakthrough Agitation Nitroglycerin 0.4 mg 07/31/24 13:54 Nitroglycerin 0.4 Mg Subl Btl #25 SL Q5MIN PRN CHEST PAIN Ondansetron HCl 4 mg 07/31/24 13:48 Ondansetron Inj 2 Mg/Ml Inj 2 Ml IV 08/30/24 13:47 Q6H PRN NAUSEA OR VOMITING Protocol Sennosides 1 tab 08/01/24 09:00 08/03/24 08:38 Senna Tablet PO 08/31/24 08:59 1 tab QDAY EILEEN Administration Protocol Thiamine HCl 100 mg 07/31/24 21:00 08/03/24 08:38 Thiamine 100 Mg Tablet PO 08/05/24 20:59 100 mg BID EILEEN Administration Plan 64-year-old male with past medical history of poorly controlled type 2 diabetes with amputations, hypertension, hyperlipidemia, alcohol use disorder, likely undiagnosed congestive heart failure presenting to the ED on 07/31/2024 with dyspnea on exertion along with chest tightness/pressure will be admitted for cardiomyopathy likely secondary to alcohol, congestive heart failure exacerbation with cardiology consulted for recommendations. #Cardiomyopathy, likely secondary to alcohol use disorder #Congestive heart failure exacerbation #Elevated troponin, NSTEMI type I versus type II, downtrending #Possible bibasilar pneumonia? Patient is presenting to the ED today with exertional dyspnea along with chest pain and signs of orthopnea for over a year Patient states that he follows a PCP for about 3 to 4 months but has not seen a retail sales consultant in the past regarding his symptoms In the ED, patient is normal/hypotensive and requiring supplemental oxygenation and complaining of substernal chest pressure Troponin elevated at 2.337 and BNP of 2708, magnesium 1.2; ED given aspirin 325 x 1 and IV furosemide 20 x 1 Chest x-ray shows mild to moderate CHF with possible superimposed bibasilar pneumonia and right sided rib fractures. EKG shows normal sinus rhythm with left axis deviation and some ST depressions are noted in the septal leads. Cardiology, Dr. Celaya, has been consulted Echo showed ejection fraction of 25 to 30% with mild mitral regurgitation, mild tricuspid regurgitation, left pleural effusion in the left and both atrium mildly dilated 18.6% Risk of cardiovascular event (coronary or stroke or non-fatal [place] or stroke) in next 10 years. Arterial Duplex ordered b/l lower ext shows no signs of arterial disease Plan: Lovenox 80mg subq BID Continue asp 81 and atorvastatin 40mg hs Changed IV Lasix 40 mg to 20 mg twice daily For SBP<95 and DBP<60 midodrine 2.5 mg TID prn Strict I's and O's Daily weight Sublingual nitroglycerin, max dose of 3 Keep potassium greater than 4 and magnesium greater than [address] Celaya, cardiology - planning on doing right and left heart cath 08/04 #[id number] type 2 diabetes, poorly controlled #Osteomyelitis of bilateral feet A1c of 6.8 Patient has known history of type 2 diabetes, denies using insulin and is currently on Januvia and metformin at home Last A1c on file is from 2020 and it is 11.4; moreover, current glucose 190 Patient has complications secondary to type 2 diabetes, amputations noted in exam Xray foot shows: Suspicious for osteomyelitis distal left first metatarsal as well and has proximal middle and distal phalanges left second digit Bilateral foot MRI shows early osteomyelitis of the distal first metatarsal of the left foot and early osteomyelitis of the distal phalanx second digit of the right foot Plan: Sliding scale insulin Carb consistent low diet, bedside glucose ACHS Ceftriaxone 2g IV qday empirically, will transition to p.o. antibiotics on discharge Doxycycline 100mg po BID Infectious disease consulted for antibiotic stewardship and possible PICC line need versus p.o. regimen Wound care #SHAHBAZ, improving #Prerenal azotemia Patient presenting today with acute kidney injury with creatinine of 1.2 Baseline creatinine appears to be 0.8-0.9 SHAHBAZ is likely secondary to acute exacerbation of congestive heart failure and cardiomyopathy Plan: IV diuresis is helping with vascular congestion and improve kidney function Will continue monitor with morning labs #Alcohol use disorder #Hyperbilirubinemia, downtrending Per history patient has alcohol use disorder and drinks beer and tequila; unsure exactly how much at this time History corroborated with the patient's who confirms that the patient does drink but she is also unsure exactly how much On laboratory findings patient has T. bili of 2.2, AST 31, ALT 15, alk phosphatase 135 Patient denies having any abdominal pain at this time and there are no signs of cirrhosis (caput medusae, spider angiomas, ascites) Liver ultrasound Fatty infiltration throughout the live, normal hepatopedal portal venous flow and suspicious for acute acalculous cholecystitis Patient asymptomatic, no abdominal pain noted; Tbili downtrending Plan: Discontinued CIWA protocol, patient has not required any Ativan and CIWA has been 0 Counseled on alcohol cessation #Hypertension Patient has history of hypertension and takes some pulm medications, unsure exactly which medications Patient is currently normotensive/hypotensive Plan: Pending med rec Will resume when appropriate #Normocytic anemia, likely anemia of chronic disease Patient is presenting with hemoglobin of 9.9, MCV of 80 Differentials include iron deficiency anemia, anemia of chronic disease, vitamin deficiency, hemolytic anemia No signs of acute GI bleeding noted, patient denies having any hematuria or melena/hematochezia/hematemesis Iron panel shows signs of anemia of chronic disease with low iron but normal ferritin Reticulocyte count elevated Plan: Follow-up on blood smear Continue 325 mg of ferrous sulfate every other day Hospital Management: Lines: PIV, [place] Diet: Cardiac, carb consistent low and fluid restriction 1800 mL Bowel: Senna GI prophylaxis: Not needed DVT prophylaxis: Full dose Lovenox Dispo: Cardiology planning on doing left heart catheterization 08/04/2024, IV antibiotics for osteomyelitis Code: Full Patient plan of care was discussed with the attending physician, Dr. Corcoran. Camelia Nunez, PGY-2 Attending Provider Attestation/Addendum I have examined the patient, reviewed labs and imaging findings, discussed the case with the resident(s), and reviewed entered orders. I agree with the plan of care as outlined in this note, with these additional summaries/recommendations: Patient seen at bedside. No acute overnight events. He denies chest pain and palpitations. He reports significant improvement in his shortness of breath. Patient has been titrated down to 3-4L NC and continue to wean as tolerated. Patient admitted for acute hypoxic respiratory failure secondary to CHF exacerbation. Echocardiogram returned revealing EF 25-30% with severe dilated cardiomyopathy and left pleural effusion. Cardiology following. We will continue diuresis and have been unable to start GDMT for CHF given soft blood pressures. Patient was found to have elevated troponin on admission which is most likely secondary to NSTEMI Type I vs II. Continue therapeutic lovenox, aspirin 81mg PO QD, and atorvastatin. Patient will go for cardiac cath on Sunday08/04/24. Of note chest x-ray shows right rib fractures so may be the source of patient's pain although no evidence of fall. Continue pain management as needed. Hyperbilirubinemia present which is possibly secondary to congestive hepatopathy. Hyperbili improving. Liver ultrasound suspicious for acute acalculous cholecystitis although very unlikely at this time and we will avoid additional workup. Hyperbilirubinemia improving with diuresis. Conitnue insulin sliding scale for diabetes mellitus type 2. A1c 6.8%. MRI shows bilateral osteomyelitis of feet. Patient has previously declined surgical intervention and follows at wound clinic. Patient is unsure if he would like to proceed with picc line for extended course of abx vs trying an oral course and would like to discuss with in house infectious disease specialist. Patient updated on the plan and in agreement. All questions answered to satisfaction. Repeat hematology and chemistry panel in AM. Dr. Nilo MD
--- NOTE | 2024-08-03 17:58 | ESPR_ITS ---
Documentation for date of: 08/03/24 Subjective Subjective Interval history: Covering for Dr. Celaya and he will take over service from tomorrow 08/04/2024 Patient seen and examined at the bedside. No new cardiac complaints overnight including any chest pain or chest pressure. Patient states that he is breathing better and has diuresed well over the last 48 hours. Rest of the labs and vitals appears to be at baseline with hemoglobin at 9.8 and BUN/creatinine is 18 and 0.9. Patient LDL is 56 and cholesterol is 100, TG 71, TSH is 1.84 and A1c 6.8%. And he has been in negative balance over the last couple of days. Patient was mildly hypotensive this morning 98/62 mmHg and the primary team did hold the patient's Lasix in the recommend to continue to hold diuresis for now. Will plan for left and right heart cardiac catheterization tomorrow morning to evaluate his volume status again as recommended by Dr. Cealya on Sunday Keep the patient n.p.o. overnight and Dr. Celaya will perform left and right heart cardiac catheterization tomorrow. Hold on 08/03 evening dose in preparation for catheterization on 08/04 Continue aspirin, high intensity statin along with beta-oscar if blood pressure is permissible. Given the concern for peripheral arterial disease and arterial duplex was ordered which showed normal triphasic flow in most of the arteries on the right side with an right CHANTALE of 1.2 and also good triphasic flow on the left side but the ankle-brachial index was 1.4 indicating noncompliant of stiff arteries. Once patient's cardiac issues have been worked up appropriately then patient can have further workup as outpatient for his peripheral arterial disease given his history of bilateral toe amputation. Exam Vital Signs Temp Pulse Resp BP Pulse Ox O2 Del Method O2 Flow Rate 97.4 F 66 16 98/64 96 Nasal Cannula 4 08/03/24 16:00 08/03/24 16:00 08/03/24 16:00 08/03/24 16:00 08/03/24 16:08/03/24 16:08/03/24 16:00 Narrative Exam General: AOx3, cooperative, in no acute distress HEENT: Atraumatic/normocephalic, ESEQUIEL, neck supple Heart: RRR, S1 and S2 without clicks or murmurs Lungs: Clear on auscultation bilaterally and mildly decreased at the bases Abdomen: Soft, nontender. Bowel sounds present on all quadrants Skin: Left foot first digit amputation, right foot second and third digit amputation, no lower extremity edema noted, poor peripheral pulses lower extremity bilaterally, femoral pulses palpable Neuro: No focal neurological deficits noted on appearance Objective Labs 08/03/24 06:01 08/03/24 06:01 Labs: Laboratory Results - last 24 hr 08/03/24 06:01 WBC 7.1 RBC 3.62 L Hgb 9.6 L Hct 29.6 L MCV 82 MCH 26.5 MCHC 32.4 RDW Std Deviation 54.6 H Plt Count 233 D Neut % (Auto) 51 Lymph % (Auto) 29 [place] % (Auto) 15 H Eos % (Auto) 4 Baso % (Auto) 1 Neut # (Auto) 3.6 Lymph # (Auto) 2.0 [place] # (Auto) 1.1 H Eos # (Auto) 0.3 Baso # (Auto) 0.0 Immature Gran # (Auto) 0.02 H Absolute Nucleated RBC 0.00 Immature Gran % 0 Nucleated RBC % 0 PT 12.8 H INR 1.2 APTT 33.3 Sodium 138 Potassium 3.9 Chloride 103 Carbon Dioxide 28.5 Anion Gap 7 BUN 18 Creatinine 0.9 Estim Creat Clear Calc 68.5 eGFR > 60 BUN/Creatinine Ratio 20 Glucose 131 H Calculated Osmolality 279 Calcium 8.8 Corrected Calcium 9.2 Total Bilirubin 0.7 AST 20 ALT 8 L Alkaline Phosphatase 117 H Total Protein 6.5 Albumin 3.5 Globulin 3.0 Albumin/Globulin Ratio 1.2 ABG Interpretation ABG results: 07/31/24 10:55 VBG pH 7.46 VBG pCO2 33 L VBG pO2 30 VBG Base Excess 0 Assessment & Plan A&P Narrative Patient is a 64-year-old male with history of type 2 diabetes mellitus, hypertension, hyperlipidemia, and alcohol use who presented to the ED with concerns of dyspnea on exertion and chest pressure that began roughly 1 month ago. Symptoms noticed to worsen on physical exertion or when laying down. He had plan to follow-up with his PCP, however was waiting for insurance change when his symptoms noticed to become very severe, decided to come to the ED at that time. If you do not get that in the ED, patient was noticed to have imaging of mild to moderate CHF on chest x-ray in the setting of elevated BNP 2708 and elevated troponin 2.337, EKG revealing sinus rhythm without concern of acute VT. Cardiology team was consulted for concern of new onset congestive heart failure. #New-onset congestive heart failure with reduced ejection fraction (EF 25-30%) #Troponin elevation in setting of CHF and demand ischemia, improving #Dilated cardiomyopathy with severe LV dysfunction #Possible ischemic cardiomyopathy - Troponin 2.337 and BNP 2708 on admission - Troponin peaked to 5.886, down-trending to 4.596 - EKG revealing sinus rhythm, low suspicion for acute VT - CXR revealing mild-moderate CHF, with right sided rib fractures - Orthopnea and dyspnea on exertion reported by patient on admission, no lower extremity edema noted - Echo (July 2024): Dilated cardiomyopathy with severe LV dysfunction LVEF 25- 30%. LA/RA mild dilation, mild MR/TR. Left pleural effusion Plan: - IV lasix 40mg BID with goal urine output ~2L in 24 hours - Strict I/Os - Fluid restriction 3502-2428 cc/daily - Hold on starting beta blockers for now - Given echo findings and clinical status, concern for ischemic cardiomyopathy and multi-vessel disease. Recommend right and left heart catheterization on 08/0408/03/2024 No new cardiac complaints overnight including any chest pain or chest pressure. Patient states that he is breathing better and has diuresed well over the last 48 hours. Rest of the labs and vitals appears to be at baseline with hemoglobin at 9.8 and BUN/creatinine is 18 and 0.9. Patient LDL is 56 and cholesterol is 100, TG 71, TSH is 1.84 and A1c 6.8%. And he has been in negative balance over the last couple of days. Patient was mildly hypotensive this morning 98/62 mmHg and the primary team did hold the patient's Lasix in the recommend to continue to hold diuresis for now. Will plan for left and right heart cardiac catheterization tomorrow morning to evaluate his volume status again as recommended by Dr. Celaya on Sunday Keep the patient n.p.o. overnight and Dr. Celaya will perform left and right heart cardiac catheterization tomorrow. Hold on 08/03 evening dose in preparation for catheterization on 08/04 Continue aspirin, high intensity statin along with beta-oscar if blood pressure is permissible. #Concern for peripheral arterial disease - Patient has history of bilateral lower extremity amputations - Physical exam on 08/01 reveals poor lower extremity peripheral pulses. Femoral pulses palpable bilaterally Plan: Given the concern for peripheral arterial disease and arterial duplex was ordered which showed normal triphasic flow in most of the arteries on the right side with an right CHANTALE of 1.2 and also good triphasic flow on the left side but the ankle-brachial index was 1.4 indicating noncompliant of stiff arteries. Once patient's cardiac issues have been worked up appropriately then patient can have further workup as outpatient for his peripheral arterial disease given his history of bilateral toe amputation. #Alcohol use disorder #SHAHBAZ #Hx of T2DM - Management per primary team Management of rest of the medical conditions as per primary team and other consultants. Thank you for the consult and allowing me to participate in the care of the patient. Cardiology will continue to follow. Jadon Valles M.D. Interventional Cardiology Time Spent With Patient Time: Total time spent is greater than 50% in coordination of care (as documented) at patient's floor/unit and/or counseling patient:
[2024-08-03] MEDS: FUROSEMIDE INJ 10 MG/ML VIAL 2 ML 20 MG IVP (18:08)
[2024-08-03] MEDS: ATORVASTATIN CALCIUM 20 MG TABLET 40 MG PO (21:24)
[2024-08-04] VITALS (14 sets, daily range): BP systolic 92–113; BP diastolic 56–75; PULSE 63–77; RESP 11–24; TEMP 36.4–36.8; O2SAT 93–100; BMI 25.3
[2024-08-04] MEDS: FUROSEMIDE INJ 10 MG/ML VIAL 2 ML 20 MG IVP (05:01)
--- NOTE | 2024-08-04 06:48 | PC.NURSE ---
Patient taken to medical laboratory manager
--- NOTE | 2024-08-04 10:02 | PD.IDPROG ---
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 if issue is choic of iv rx for presumptive osteo old c in 2020 with os x staph. that may be different now Exam Vital Signs Temp Pulse Resp BP Pulse Ox O2 Del Method O2 Flow Rate 97.8 F 72 19 109/72 95 Room Air 3 08/04/24 08:45 08/04/24 09:45 08/04/24 09:45 08/04/24 09:45 08/04/24 09:45 08/04/24 09:45 08/04/24 09:15 Narrative Exam not seen. 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 if you need an empiric regimen, suggest rocephin 2 gm iv daily and po doxy 100 bid both for 6 weeks with weekly cbc, renal panel, esr and line removal at end of rx control dm and other health problems too if you want to go all po. that is a choice, suggest keflex 1000 tid and doxy 100 bid again both for 6 week with weekly labs as above. Time Spent With Patient Time: Total time spent is greater than 50% in coordination of care (as documented) at patient's floor/unit and/or counseling patient:
--- NOTE | 2024-08-04 10:11 | PC.SS ---
Follow up note: Pt will have cardio cath today. Pt will return home upon d/c with [facility].
--- NOTE | 2024-08-04 10:20 | ESOP_ITS ---
RE: HENRIQUE LAL : 1960 DATE OF OPERATION: 08/04/2024 PROCEDURE PERFORMED: 1. Diagnostic right and left heart cardiac catheterization, selective coronary angiogram, left ventricular angiogram, please add emergency procedure, CPT 09527. 2. Conscious sedation 30-minute duration. 4. Ultrasound-guided access to the right radial artery and femoral vein. DIAGNOSIS: Acute decompensated systolic heart failure and acute non?ST-segment elevation myocardial infarction, NSTEMI. HISTORY AND INDICATIONS: The patient is a 64-year-old male with a history of hypertension, diabetes, hypercholesterolemia, __ new onset shortness of breath, severe congestive heart failure symptoms, bilateral pleural effusions with troponin elevation, initial troponin was low, but troponin had delta with significant elevation of troponin levels, initial troponin was 2.3 and peak troponin at 5.8 and the patient had predominantly shortness of breath, bilateral pleural effusions, congestive heart failure. Cardiac echo showed severe LV dysfunction, ejection fraction 25%, global hypokinesis. EKG showed sinus rhythm, nonspecific changes. The patient was treated for acute decompensated heart failure with diuretic therapy, clinically responded very well, but because of troponin elevation, acute myocardial infarction, cardiac catheterization, right and left heart catheterization, coronary angiogram was recommended prior to recommending revascularization and assessment of CAD. PROCEDURE IN DETAILS: The patient was brought to cardiac catheterization laboratory where he was given 2 mg Versed and 50 mcg of fentanyl for sedation. Right radial artery was cannulated with micropuncture technique and 6-Lithuanian Planada sheath introduced. Right femoral vein was cannulated, ultrasound guidance and micropuncture technique and a 7-Lithuanian sheath was introduced. Right heart catheterization was performed with Salley-Marissa catheter and right heart pressures were measured. Left heart catheterization was performed with 5-Lithuanian TIG-4 diagnostic catheter. Left ventricular angiogram performed subsequently. Selective right and left coronary angiogram performed by TIG-4 diagnostic catheter. The patient tolerated the procedure well. No complications. TR band was applied. Hemostasis secured. Cardiac catheterization showed following findings. HEMODYNAMICS: Right atrial pressure is found to be 3 mmHg, right ventricular pressure is 25/0, EDP 4, left ventricular pressure is 99/0, EDP 10, aortic pressure 94/58, no gradient across the aortic valve. Pulmonary artery pressure is 27/12, mean 14. Pulmonary artery wedge pressure is 6 mmHg. These findings are consistent with well-treated congestive heart failure _. Left ventricular angiogram showed severe global hypokinesis, ejection fraction 25% to 30%. No significant mitral regurgitation. Coronary angiogram showed following findings: Right coronary artery small and nondominant, gives right ventricular branches only. Left coronary system: Left main coronary artery showed calcification. Distal left main coronary artery showed mild plaque. Proximal left anterior descending artery showed 90% stenosis close to the origin near the septal branch. Distal and mid LAD is widely patent with excellent good distal flow. Mid LAD showed moderate disease. Diagonal branch showed mwrr-ki-flfboyxj disease. Circumflex artery large and dominant showed 99% stenosis of the proximal circumflex artery. Subsequently, there are two obtuse marginal branches and there is a large obtuse marginal branch 1 and there is a posterolateral branch 1. After the first posterolateral branch, there is a total occlusion of the distal circumflex artery, which gives the posterior descending artery filling via collaterals both antegrade and retrograde suggests to chronic total occlusion. SUMMARY OF FINDINGS AND SUGGESTIONS: 1. Normal right heart pressure, normal wedge pressure, well-treated congestive heart failure. 2. Ischemic cardiomyopathy with severe LV dysfunction, ejection fraction 25% to 30% with severe multivessel disease. 3. Nondominant right coronary artery, free of disease. 4. 99% stenosis of the proximal left circumflex artery, large dominant vessel, and a total occlusion of the distal circumflex artery up to the posterolateral branch before the posterior descending artery. 5. Severe 90% stenosis of the proximal left anterior descending artery with excellent targets, at least three of them including left anterior descending artery, large obtuse marginal branch and posterolateral branches. RECOMMENDATIONS: The patient recommended to continue medical management. Continue aspirin and Lovenox. We will probably arrange for transfer to [facility] for possible bypass graft surgery consultation. The patient will benefit from multivessel bypass graft surgery because of severe LV dysfunction, multivessel CAD and NSTEMI. DT: 08:53:36 TT: 10:15:00 Ref: [id number] - TID: [id number] MTDPatricio
--- NOTE | 2024-08-04 10:43 | PC.NURSE ---
Report given to CATA Salazar. Patient transferred to Tele [facility]. VSS. Dressing clean, dry, and intact.
[2024-08-04] MEDS: cefTRIAXone 2 GM in SODIUM CHLORIDE 0.9% (Popper) 50 ML IV (10:56)
[2024-08-04] MEDS: THIAMINE 100 MG TABLET PO (10:56)
[2024-08-04] MEDS: DOXYCYCLINE 100 MG TABLET PO (10:56)
[2024-08-04] MEDS: FOLIC ACID 1 MG TABLET PO (10:56)
[2024-08-04] MEDS: SENNA TABLET 1 TAB PO (10:56)
--- NOTE | 2024-08-04 11:59 | PC.CM ---
Addendum entered by Nury Tubbs RN 08/04/24 16:46: I took packet to nurse and I gave her report. 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 I will take completed paperwork with CD to nurse on telemetry. Addendum entered by Nury Tubbs RN 08/04/24 15:58: Patient has been accepted at [facility] and will be going to room 1421. Accepting doctor is Dr. Junior. number to call and give report is [phone]. I will call and set up transport. Addendum entered by Nury Tubbs RN 08/04/24 13:44: I faxed over discharge summary Addendum entered by Nury Tubbs RN 08/04/24 13:16: I faxed the transfer back agreement to [facility]. I asked Dr. Corcoran to do a discharge summary. I called for a CD to be made. I called insurance and I let them know we are transferring patient to [facility] for bypas surgery and he has been accepted by Dr. junior. We need to have insurance authorization initiated. I contacted [employer] and I faxed information over. I fax # [phone]. [facility] will look for a bed once they have the discharge summary. Original Note: 0908 I received a referral to transfer patient to [facility] for bypass surgery. I faxed over information to [facility] transfer center. They requested I reach out to the insurance and send a completed transfer back agreement.
[2024-08-04] MEDS: INSULIN LISPRO (AdmeLOG) 1 UNIT/0.01 ML UNIT SC ×2 (12:13→17:29)
[2024-08-04 12:23] LABS: Basophils # (Auto) 0.1 Thou/mm3 (0.0-0.2); Basophils % (Auto) 1 % (0-2.5); Eosinophils # (Auto) 0.3 Thou/mm3 (0.0-0.5); Eosinophils % (Auto) 4 % (0-10); Hematocrit 32.3 % (41.0-53.0); Hemoglobin 10.4 g/dL (13.5-16.0); Immature Granulocytes % (Auto) 0 % (0-0); Immature Granulocytes Auto 0.01 Thou/mm3 (0.00-0.00); Lymphocytes # (Auto) 2.1 Thou/mm3 (1.0-4.8); Lymphocytes % (Auto) 34 % (10-50); Mean Corpuscular HGB Conc 32.2 g/dl (31.0-37.0); Mean Corpuscular Hemoglobin 26.3 pg (25.0-35.0); Mean Corpuscular Volume 82 fL (80-100); Monocytes # (Auto) 0.7 Thou/mm3 (0.0-0.8); Monocytes % (Auto) 12 % (0-12); Neutrophils % (Auto) 49 % (37-80); Nucleated Red Blood Cell % 0 /100 WBC (0); Platelet Count 258 Thou/mm3 (140-440); RDW Standard Deviation 54.6 fL (35.1-43.9); Red Blood Count 3.95 Miln/mm3 (4.50-5.90); White Blood Count 6.1 Thou/mm3 (3.8-10.6)
[2024-08-04 12:46] LABS: Alanine Aminotransferase 10 U/L (10-49); Albumin, Serum 3.7 gm/dL (3.4-4.8); Albumin/Globulin Ratio 1.1 (1.2-2.2); Alkaline Phosphatase 114 U/L (46-116); Anion Gap 5 (7-16); Aspartate Amino Transferase 20 U/L (0-34); BUN/Creatinine Ratio 22 Ratio (12-20); Bilirubin,Total 0.6 mg/dL (0.3-1.2); Blood Urea Nitrogen 20 mg/dL (9-23); Calcium (Corrected) 9.2 mg/dL (8.5-10.1); Carbon Dioxide 30.9 mMol/L (20.0-31.0); Chloride 99 mMol/L (98-107); Creatinine (Component) 0.9 mg/dL (0.6-1.3); Estimated Creatinine Clearance 68.5 mL/min (>60); Globulin 3.3 gm/dL (2.3-3.5); Glucose 188 mg/dL (74-106); Magnesium 1.4 mg/dL (1.6-2.6); Osmolality,Calculated 277 (275-295); Phosphorous 3.7 mg/dL (2.4-5.1); Potassium 3.7 mMol/L (3.4-5.1); Sodium 135 mMol/L (136-145); eGFR > 60 See Note
--- NOTE | 2024-08-04 13:00 | ESPR_ITS ---
<Statement entered by Shi Celaya MD - 08/06/24 08:47> The patient personally examined by me evaluated patient still have some shortness of breath but no chest pain will be transferred to [facility] for bypass graft surgery patient is found to severe multivessel CAD by coronary angiogram with moderate to severe LV dysfunction. Agree with the treatment plan recommendation as documented by resident physician Dr. Ute Ayala Documentation for date of: 08/04/24 Subjective Subjective Interval history: Overnight events, lab/imaging results, and notes reviewed. Patient examined bedside this afternoon following this morning's catheterization, reports feeling well at this time without any complaints. Diagnostic right and left heart cardiac catheterization, selective coronary angiogram, and left ventricular angiogram were completed. Findings included ischemic cardiomyopathy with severe LV dysfunction, EF 25-30% with severe multivessel disease including 99% stenosis of proximal left circumflex artery, large dominant vessel, total occlusion of the distal circumflex artery up to posterolateral branch, and severe 90% stenosis of the proximal left anterior descending artery, large obtuse marginal branch and posterolateral branches. Recommend patient continue medical management with aspirin and lovenox, advise transfer for bypass graft surgery consultation, may require multivessel bypass graft surgery due to severe LV dysfunction, multivessel CAD and NSTEMI. Exam Vital Signs Temp Pulse Resp BP Pulse Ox O2 Del Method O2 Flow Rate 97.6 F 77 20 102/72 93 L Room Air 3 08/04/24 11:58 08/04/24 12:00 08/04/24 11:58 08/04/24 11:58 08/04/24 11:58 08/04/24 11:58 08/04/24 09:15 Narrative Exam General: AOx3, cooperative, in no acute distress HEENT: Atraumatic/normocephalic, ESEQUIEL, neck supple Heart: RRR, S1 and S2 without clicks or murmurs Lungs: Clear on auscultation bilaterally Abdomen: Soft, nontender. Bowel sounds present on all quadrants Skin: Left foot first digit amputation, right foot second and third digit amputation, no lower extremity edema noted, poor peripheral pulses lower extremity bilaterally, femoral pulses palpable Neuro: No focal neurological deficits noted on appearance Objective Labs 08/04/24 11:54 08/04/24 11:54 Labs: Laboratory Results - last 24 hr 08/04/24 11:54 WBC 6.1 RBC 3.95 L Hgb 10.4 L Hct 32.3 L MCV 82 MCH 26.3 MCHC 32.2 RDW Std Deviation 54.6 H Plt Count 258 Neut % (Auto) 49 Lymph % (Auto) 34 [place]que % (Auto) 12 Eos % (Auto) 4 Baso % (Auto) 1 Neut # (Auto) 3.0 Lymph # (Auto) 2.1 [place]que # (Auto) 0.7 Eos # (Auto) 0.3 Baso # (Auto) 0.1 Immature Gran # (Auto) 0.01 H Absolute Nucleated RBC 0.00 Immature Gran % 0 Nucleated RBC % 0 Sodium 135 L Potassium 3.7 Chloride 99 Carbon Dioxide 30.9 Anion Gap 5 L BUN 20 Creatinine 0.9 Estim Creat Clear Calc 68.5 eGFR > 60 BUN/Creatinine Ratio 22 H Glucose 188 H D Calculated Osmolality 277 Calcium 9.0 Corrected Calcium 9.2 Phosphorus 3.7 Magnesium 1.4 L Total Bilirubin 0.6 AST 20 ALT 10 Alkaline Phosphatase 114 Total Protein 7.0 Albumin 3.7 Globulin 3.3 Albumin/Globulin Ratio 1.1 L ABG Interpretation ABG results: 07/31/24 10:55 VBG pH 7.46 VBG pCO2 33 L VBG pO2 30 VBG Base Excess 0 Quality Measures Quality Measures VTE prophylaxis Advance care planning discussed with:: patient Assessment & Plan Assessment Current Active Medications: Generic Name Dose Route Start Last Admin Trade Name Freq PRN Reason Stop Dose Admin Acetaminophen 650 mg 07/31/24 13:48 Acetaminophen 325 Mg Tablet PO 08/30/24 13:47 Q6H PRN Pain 1-3 and/or Fever >100.1 Aspirin 81 mg 08/01/24 09:00 08/04/24 10:12 Aspirin Ec 81 Mg Tabec PO 08/31/24 08:59 Not Given QDAY EILEEN Atorvastatin Calcium 40 mg 07/31/24 21:00 08/03/24 21:24 Atorvastatin Calcium 20 Mg Tablet PO 08/30/24 20:59 40 mg HS EILEEN Administration Dextrose 25 ml 07/31/24 13:51 Dextrose 50%-Water Inj 50 Ml Syringe IV 08/30/24 13:50 Q15MIN PRN BG 50-70 responsive npo pt Dextrose 50 ml 07/31/24 13:51 Dextrose 50%-Water Inj 50 Ml Syringe IV 08/30/24 13:50 Q15MIN PRN BG <50 OR BG <70 & pt unresponsive Doxycycline Hyclate 100 mg 08/01/24 21:00 08/04/24 10:56 Doxycycline 100 Mg Tablet PO 08/08/24 20:59 100 mg BID EILEEN Administration Enoxaparin Sodium 70 mg 08/04/24 21:00 Enoxaparin Sod Inj 100 Mg/Ml Syringe SC 08/18/24 20:59 BID EILEEN Ferrous Sulfate 325 mg 08/01/24 10:45 08/03/24 08:38 Ferrous Sulf 325 Mg Tablet PO 08/31/24 10:44 325 mg QOD EILEEN Administration Folic Acid 1 mg 07/31/24 21:00 08/04/24 10:56 Folic Acid 1 Mg Tablet PO 08/05/24 20:59 1 mg BID EILEEN Administration Furosemide 20 mg 08/03/24 18:00 08/04/24 05:01 Furosemide Inj 10 Mg/Ml Vial 2 Ml IVP 09/02/24 17:59 20 mg BIDD EILENE Administration Glucagon 1 mg 07/31/24 13:51 Glucagon Inj 1 Mg Vial IM Q15MIN PRN BG <70, and no IV access Ceftriaxone Sodium 2 gm/ 50 mls @ 100 mls/hr 07/31/24 16:04 08/04/24 10:56 Sodium Chloride IV 08/07/24 16:03 100 mls/hr QDAY EILEEN Administration Insulin Human Lispro 0 unit 07/31/24 17:00 08/04/24 12:13 Insulin Lispro (Admelog) 1 Unit/0.01 Ml Unit SC 08/30/24 16:59 2 unit ACHS EILEEN Administration Protocol Midodrine 2.5 mg 08/03/24 17:51 Midodrine 2.5 Mg Tablet PO 09/02/24 21:59 TID PRN SBP < 95 or DBP < 60 Nitroglycerin 0.4 mg 07/31/24 13:54 Nitroglycerin 0.4 Mg Subl Btl #25 SL Q5MIN PRN CHEST PAIN Ondansetron HCl 4 mg 07/31/24 13:48 Ondansetron Inj 2 Mg/Ml Inj 2 Ml IV 08/30/24 13:47 Q6H PRN NAUSEA OR VOMITING Protocol Sennosides 1 tab 08/01/24 09:00 08/04/24 10:56 Senna Tablet PO 08/31/24 08:59 1 tab QDAY EILEEN Administration Protocol Thiamine HCl 100 mg 07/31/24 21:00 08/04/24 10:56 Thiamine 100 Mg Tablet PO 08/05/24 20:59 100 mg BID EILEEN Administration Plan Patient is a 64-year-old male with history of type 2 diabetes mellitus, hypertension, hyperlipidemia, and alcohol use who presented to the ED with concerns of dyspnea on exertion and chest pressure that began roughly 1 month ago. Symptoms noticed to worsen on physical exertion or when laying down. He had plan to follow-up with his PCP, however was waiting for insurance change when his symptoms noticed to become very severe, decided to come to the ED at that time. If you do not get that in the ED, patient was noticed to have imaging of mild to moderate CHF on chest x-ray in the setting of elevated BNP 2708 and elevated troponin 2.337, EKG revealing sinus rhythm without concern of acute PA. Cardiology team was consulted for concern of new onset congestive heart failure. #New-onset congestive heart failure with reduced ejection fraction (EF 25-30%) #Troponin elevation in setting of CHF and ischemic cardiomyopathy, improved #Dilated cardiomyopathy with severe LV dysfunction #Ischemic cardiomyopathy #Multi-vessel cardiovascular disease (99% stenosis left circumflex artery, total occlusion distal circumflex artery, 90% stenosis of proximal left anterior descending artery) #NSTEMI - Troponin 2.337 and BNP 2708 on admission - Troponin peaked to 5.886, down-trending to 4.596 - EKG revealing sinus rhythm, low suspicion for acute PA - CXR revealing mild-moderate CHF, with right sided rib fractures - Orthopnea and dyspnea on exertion reported by patient on admission, no lower extremity edema noted - Echo (July 2024): Dilated cardiomyopathy with severe LV dysfunction LVEF 25- 30%. LA/RA mild dilation, mild MR/TR. Left pleural effusion - Diagnostic right and left heart cardiac catheterization, selective coronary angiogram, and left ventricular angiogram were completed. Findings included ischemic cardiomyopathy with severe LV dysfunction, EF 25-30% with severe multivessel disease including 99% stenosis of proximal left circumflex artery, large dominant vessel, total occlusion of the distal circumflex artery up to posterolateral branch, and severe 90% stenosis of the proximal left anterior descending artery, large obtuse marginal branch and posterolateral branches. Plan: - IV lasix 40mg BID with goal urine output ~2L in 24 hours - Strict I/Os - Fluid restriction 6115-5105 cc/daily - Hold on starting beta blockers for now - Advise continued medical management with lovenox and aspirin - Advise transfer for bypass graft surgery consultation, may require multivessel bypass graft surgery due to severe LV dysfunction, multivessel CAD and NSTEMI. #Obstructive arterial disease ruled out - Patient has history of bilateral lower extremity amputations - Physical exam on 08/01 reveals poor lower extremity peripheral pulses. Femoral pulses palpable bilaterally - Bilateral lower extremity arterial duplex study ruled out obstructive disease #Alcohol use disorder #SHAHBAZ #Hx of T2DM - Management per primary team Patient case discussed with attending physician Dr. Yomi Ayala, DO PGY-3
--- NOTE | 2024-08-04 13:25 | ESDS_ITS ---
<Statement entered by Camelia Nunez MD - 08/05/24 08:10> Patient was seen and examined by me personally. I have reviewed the below documentation by the team resident and agree with its findings with any exceptions as below. Patient is being transferred to [facility] for coronary artery bypass surgery. This morning patient was seen on room air and denied any chest pain. Camelia Nunez, PGY-2 Planned Discharge Date 08/04/24 DS: Providers Provider Date of admission: 07/31/24 13:16 Primary care physician: John Taylor PA-C Admitting Provider: Olivier Corcoran MD Attending Provider on Admission: Olivier Corcoran MD Consults: 07/31/24 13:04 Consult to Cardiology Stat Comment: Consulting Provider: Shi Celaya 07/31/24 22:16 Referral Registered Dietitian Routine Comment: Referral Wound Care Routine Comment: 08/02/24 10:05 Consult to Infectious Diseases Routine Comment: Acute osteomyelitis lower ext, history of chronic Consulting Provider: Darek Pettit 08/03/24 13:03 Referral Wound Care Routine Comment: 08/04/24 09:08 Referral - [employer] Routine Service Needed for Transfer: Cardiovascular/Thoracic Surg Addl Comments:: Left heart cath shows severe triple vessel disease; bypass surgery recommended by in-house cardiology. Attending Provider on DC: Hollis Damon MD Discharging Provider: Hollis Damon MD DS: Diagnosis Problem List Completed Was Problem List Reviewed/Reconciled?: Yes Hospital Course Hospital Course Hospital course: 64-year-old male with past medical history of poorly controlled type 2 diabetes with amputations, hypertension, hyperlipidemia, alcohol use disorder, HFrEF (EF 25 to 30%) came into the ED on 07/31/2024 with dyspnea on exertion along with chest tightness/pressure. In the ED, patient presented normotensive, afebrile and satting 99 on 3 L nasal cannula. Pertinent lab findings included lactic acid 2.5, troponin 2.337, BNP 2708, chest x-ray did show moderate CHF with possible superimposed bibasilar pneumonia and right-sided rib fractures. EKG showed normal sinus rhythm with left axis deviation and some ST depressions noted in septal leads. Cardiology was consulted and recommendation was for the patient to receive IV diuretics for acute hypoxic respiratory failure secondary to congestive heart failure exacerbation and cardiomyopathy. An echo was ordered which showed the above EF value and cardiology recommended left heart catheterization on Friday 08/04; moreover, in the meantime the patient was s tarted on full dose Lovenox and arterial duplex of the bilateral lower extremities was ordered which ultimately was negative for any active disease. Patient's cath findings showed normal right heart pressure, ischemic cardiomyopathy with severe LV dysfunction with severe multivessel disease. Nondominant right coronary artery free of disease but 99% stenosis of the proximal left circumflex artery and 90% severe stenosis of the proximal left anterior descending artery. Patient's hospitalization was also complicated with osteomyelitis as confirmed with MRI of the bilateral feet; moreover, patient was started on empiric antibiotics with IV ceftriaxone and p.o. doxycycline regimen. Infectious disease was consulted and recommendation was to either do PICC line or full oral regimen; moreover, will decide based on what patient is more comfortable with after presumptive CABG is completed. Patient will be transferred to [facility] to be assessed by cardiothoracic surgery for CABG. Hospital Diagnosis: #Acute hypoxic respiratory failure secondary to congestive heart failure exacerbation #HFrEF (EF 25 to 30%) exacerbation #Cardiomyopathy, likely secondary to alcohol use disorder #NSTEMI type I #Possible bibasilar pneumonia? #Ttq-cbeozhg-lrcwqhvwg type 2 diabetes, poorly controlled #Osteomyelitis of bilateral feet #SAHHBAZ, improving #Prerenal azotemia #Alcohol use disorder #Hyperbilirubinemia, downtrending #Hypertension #Normocytic anemia, likely anemia of chronic disease Hollis Damon, PGY-1 Status at Discharge Overall status at discharge: patient is progressing back to baseline Time Spent with Patient Time attestation: Total time spent providing and/or coordinating discharge services: 45 minutes Time spent: Greater than 30 minutes Exam Vital Signs Temp Pulse Resp BP Pulse Ox O2 Del Method O2 Flow Rate 97.6 F 75 20 102/72 93 L Room Air 3 08/04/24 11:58 08/04/24 11:58 08/04/24 11:58 08/04/24 11:58 08/04/24 11:58 08/04/24 11:58 08/04/24 09:15 Narrative Exam Physical Exam: GENERAL: Awake, answers questions appropriately, appears older than stated age. HEENT: NC/AT. Moist mucosa. PERRLA/EOMI. CARDIO: Heart RRR, no obvious murmurs, JVD noted. PULM: No coughing but on 3L NC, crackles noted on b/l upper lung diehl GI: Abdomen soft, NT/ND, +BS. SKIN/MSK/EXT: Patient has RLE ampuations (3rd/4th phalange) and LLE amputation (1st phalange), venous stasis changes. No rashes/edema. NEURO: Oriented x3, no focal neurological deficits noted. Discharge Plan Plan Patient Disposition: [facility] Care Merg[facility] With [facility] Pt Being Transferred to: [facility] Service Needed for Transfer: Cardiovascular/Thoracic Surg Prescriptions/Referrals Prescriptions/Med Rec: No Action metformin 1,000 mg tablet 1,000 mg PO BID Qty: 60 0RF atorvastatin 40 mg tablet 40 mg PO QDAY Patient Comments: TAKE 1 TABLET BY MOUTH ONCE DAILY amlodipine 2.5 mg tablet 2.5 mg PO QDAY Patient Comments: TAKE 1 TABLET BY MOUTH ONCE DAILY FOR 30 DAYS Januvia 100 mg tablet 100 mg PO QDAY Patient Comments: TAKE 1 TABLET BY MOUTH ONCE DAILY FOR DIABETES FOR 30 DAYS Referrals: John Taylor PA-C [Primary Care Provider] - Patient/Caregiver Discharge Instructions Print Language: Yi Stand Alone Forms: María Award Info., Patient Portal Info Letter Discharge Order Discharge Orders: Discharge (Routine); Ordered 08/04/24 Ordered By: Camelia Nunez Quality Discharge Quality Measures VTE prophylaxis MD Attestestation MD Attestation I have examined the patient, reviewed labs and imaging findings, discussed the case with the resident(s), and reviewed entered orders. I agree with the plan of care as outlined in this note. Dr. Nilo MD
== END 2024-08-04 18:12 | disposition short-term general hospital (02) | DRG 280 ==
LOC: SERX 12:32 → SERHOLD 13:41 → S2NX 16:00
PROVIDERS: Internal Medicine Cardiovascular Disease; Student in an Organized Health Care Education/Training Program; Admitting Provider Student in an Organized Health Care Education/Training Program; Emergency Provider Emergency Medicine; PCP Family Medicine; Visit Provider Student in an Organized Health Care Education/Training Program
PROC: 4A023N8 Measurement of Cardiac Sampling and Pressure, Bilateral, Percutaneous Approach (ICD-10-PCS; principal; 2024-08-04 07:30)
DX: I11.0 Hypertensive heart disease with heart failure (principal); I50.23 Acute on chronic systolic (congestive) heart failure; I21.A1 Myocardial infarction type 2; J96.01 Acute respiratory failure with hypoxia; N17.9 Acute kidney failure, unspecified; S22.41XA Multiple fractures of ribs, right side, initial encounter for closed fracture; M86.172 Other acute osteomyelitis, left ankle and foot; M86.171 Other acute osteomyelitis, right ankle and foot; E11.69 Type 2 diabetes mellitus with other specified complication; I25.5 Ischemic cardiomyopathy; E11.51 Type 2 diabetes mellitus with diabetic peripheral angiopathy without gangrene; K76.0 Fatty (change of) liver, not elsewhere classified; I25.10 Atherosclerotic heart disease of native coronary artery without angina pectoris; F10.10 Alcohol abuse, uncomplicated; E11.65 Type 2 diabetes mellitus with hyperglycemia; I95.9 Hypotension, unspecified; E83.42 Hypomagnesemia; D63.8 Anemia in other chronic diseases classified elsewhere; E78.00 Pure hypercholesterolemia, unspecified; I42.0 Dilated cardiomyopathy; Z87.891 Personal history of nicotine dependence; Z89.422 Acquired absence of other left toe(s); Z89.421 Acquired absence of other right toe(s); Z79.899 Other long term (current) drug therapy; Z79.84 Long term (current) use of oral hypoglycemic drugs
CPT/HCPCS: 36415; 71045; 73620; 73718; 76705; 80053; 80061; 80069; 80307; 80320; 81001; 82728; 82803; 83036; 83540; 83550; 83605; 83690; 83735; 83880; 84100; 84443; 84484; 85025; 85046; 85610; 85652; 85730; 86140; 87040; 87811; 93005; 93306; 93925; 94762; 96374; 99152; 99153; 99285; A4649; C1769; C1887; C1894; J0171; J0461; J0696; J1643; J1650; J1815; J1940; J2250; J2310; J2371; J3010; J3475; J3490; J7050; Q9967; A9270; G0480; J2305

== ENCOUNTER 2024-09-30 09:25 | Emergency (ER) | payer MEDICARE, MEDICAID, SELFPAY ==
[2024-09-30 09:36] VITALS: BP 120/73; PULSE 71; RESP 18; TEMP 36.9; O2SAT 100; BMI 25.2
--- NOTE | 2024-09-30 09:55 | PD.EDDENTL ---
ED Dental RME/HPI General Chief complaint: Dental/Oral/Throat Stated complaint: SWELLING/PAIN RIGHT LOWER MOUTH Time Seen by Provider: 09/30/24 09:32 Arrival date/time: 09/30/24 09:25 64-year-old male presents emergency department today for complaints of right lower dental pain right-sided jaw swelling patient reports no difficulty breathing or swallowing Limitations: no limitations Related Data Home Medications ?Medication ?Instructions ?Recorded ?Confirmed amlodipine 2.5 mg tablet 2.5 mg PO QDAY 01/27/21 01/27/21 atorvastatin 40 mg tablet 40 mg PO QDAY 01/27/21 01/27/21 sitagliptin phosphate 100 mg 100 mg PO QDAY 01/27/21 01/27/21 tablet (Januvia) Previous Rx's ?Medication ?Instructions ?Recorded metformin 1,000 mg tablet 1,000 mg PO BID #60 tabs 08/01/19 clindamycin HCl 300 mg capsule 300 mg PO TID 7 days #21 caps 09/30/24 Allergies Allergy/AdvReac Type Severity Reaction Status Date / Time No Known Allergies Allergy Verified 09/30/24 09:27 Review of Systems Review of Systems Systems Reviewed: All systems reviewed, normal except as documented Constitutional Constitutional: Reports system reviewed and no additional complaints, except as documented, Denies fever(s) and Denies headache(s) Eyes Eyes: Reports system reviewed and no additional complaints, except as documented and Denies blurry vision ENT Ears, Nose, Mouth, and Throat: Reports system reviewed and no additional complaints, except as documented, Reports dental pain, Reports facial pain, Denies headache(s), Denies nasal congestion and Denies nasal discharge Cardiovascular Cardiovascular: Reports system reviewed and no additional complaints, except as documented, Denies chest pain and Denies dyspnea Respiratory Respiratory: Reports system reviewed and no additional complaints, except as documented, Denies chest congestion, Denies cough and Denies dyspnea Gastrointestinal Gastrointestinal: Reports system reviewed and no additional complaints, except as documented and Denies abdominal pain Integumentary/Breasts Skin/Breast: Reports system reviewed and no additional complaints, except as documented and Denies rash Neurologic Neurologic: Reports system reviewed and no additional complaints, except as documented, Reports as per HPI and Denies headache(s) Past Medical History Past Medical History NEUROLOGIC: Negative Seizures CARDIAC: Positive Cardiac Disorders, Hypercholesterolemia and Hypertension; Negative Congestive Heart Failure RESPIRATORY: Negative Chronic Obstructive Pulmonary Disease (COPD) GASTROINTESTINAL: Positive Gastrointestinal Bleed GENITOURINARY: Negative Renal Disease MUSCULOSKELETAL: Positive Arthritis ENDOCRINE: Positive Endocrine Disorders and Diabetes Mellitus Type 2; Negative Diabetes Mellitus Type 1 HEMATOLOGIC: Positive Anemia PSYCHO/SOCIAL: Positive Depression and Anxiety OTHER HISTORY: Positive Hospitalization; Negative Blood Transfusions, Blood Transfusion Reaction or Anesthesia Reactions Social History SMOKING STATUS: Never smoker SUBSTANCE USE: does not use ED Exam General Limitations: Present no limitations General appearance: Present alert and in no apparent distress Head Head exam: Present atraumatic, normocephalic and normal inspection Eye Eye exam: Present normal appearance, PERRL and EOMI; Absent conjunctival injection ENT ENT exam: Present normal exam, normal oropharynx and mucous membranes moist Neck Neck exam: Present normal inspection, full ROM and trachea midline Chest Chest inspection: Present normal inspection and symmetric chest wall rise Respiratory Respiratory exam: Present normal lung sounds bilaterally Cardiovascular Cardiovascular exam: Present regular rate, normal rhythm and normal heart sounds Abdominal Exam Abdominal exam: Present soft and normal bowel sounds Extremities Exam Extremities exam: Present normal inspection and full ROM Back Exam Back exam: Present normal inspection and full ROM Neurological Exam Neurological exam: Present alert, oriented X3, CN II-XII intact, normal gait and reflexes normal; Absent motor sensory deficit Psychiatric Psychiatric exam: Present normal affect and normal mood Skin Skin exam: Present warm and dry Course Quality Measures none Orders Category Date Time Status Lidocaine 1% 20 ml [Xylocaine 1% 20 ML] Med 09/30/24 09:57 Discontinued 2.1 ml INFL X1 ONE cefTRIAXone [Rocephin] Med 09/30/24 09:57 Discontinued 1,000 mg IM X1 ONE cefTRIAXone [Rocephin] 1,000 mg Med 09/30/24 09:58 Discontinued Lidocaine 1% 20 ml [Xylocaine 1% 20 ML] 2.1 ml IM X1 Vital Signs Vital signs: Vital Signs Temperature 98.5 F 09/30/24 09:36 Pulse Rate 71 09/30/24 09:36 Respiratory Rate 18 09/30/24 09:36 Blood Pressure 120/73 09/30/24 09:36 Pulse Oximetry (%) 100 09/30/24 09:36 Oxygen Delivery Method Room Air 09/30/24 09:36 o2 sat 100 r/a wnl Dental / Oral MDM Narrative MDM Narrative:: 64-year-old male presents emergency department today for complaints of right lower dental pain right-sided jaw swelling patient reports no difficulty breathing or swallowing On exam patient well-appearing patient does not appear ill or toxic in no acute distress On exam clinically patient has dental abscess patient be treated with course of antibiotics and pain medication Patient discharged home in no distress to follow-up with primary care doctor in the next 24 to 48 hours and for any worsening symptoms to return to the ER immediately Patient data External records reviewed:: [facility] previous records Clinical information provided by:: patient Social determinants that could affect healthcare access:: none Patient has the following chronic illnesses:: See history How is presenting disease/condition affected by chronic disease/condition?: caused by Evaluation data The following diagnostics were reviewed and interpreted by me:: other (specify) (N/A) Lab and/or radiology exams considered but not ordered:: Consider not ordered Interpretation Summary: N/A Medications / Prescriptions Medications or Prescriptions considered but not ordered:: Given Medication administrations:: Medication Administration History Discontinued Medications Ceftriaxone Sodium (Ceftriaxone Sod Inj 1,000 Mg Vial) 1,000 mg IM X1 ONE Stop: 09/30/24 09:58 Last Admin: 09/30/24 10:20 Dose: Not Given Documented By: DO Non-Admin Reason: Duplicate Medication on eMAR Ceftriaxone Sodium 1,000 mg/ (Lidocaine HCl 2.1 ml) 0 mg IM X1 ONE Stop: 09/30/24 09:59 Last Admin: 09/30/24 10:13 Dose: 1,000 mg Documented By: DO Lidocaine HCl (Lidocaine Hcl 1% 20 Ml Vial) 2.1 ml INFL X1 ONE Stop: 09/30/24 09:58 Last Admin: 09/30/24 10:20 Dose: Not Given Documented By: DO Non-Admin Reason: Duplicate Medication on eMAR Given Consultations Consultation(s) initiated? (list below): No Diagnosis Dental Differential Diagnosis: gingival abscess, toothache and dental abscess Most likely diagnosis given after review of the tests above:: Dental abscess Admission Indicated Admission indicated?: not indicated Admission Request Was there a request for admission?: No Disposition Plan Disposition Plan: Discharge Discharge Attestation Discharge Attestation: The patient and all family members were given an opportunity to ask questions and understood the discharge instructions. Discharge instructions specifically effects, indications for sooner follow up or return to the emergency department, and the expected course of current diagnosis. Patient condition: Stable Discharge Plan Plan Patient Disposition: HOME (Self Care) Discharge Disposition comment: Stable Prescriptions/Referrals Prescriptions/Med Rec: New clindamycin HCl 300 mg capsule 300 mg PO TID 7 Days Qty: 21 0RF No Action metformin 1,000 mg tablet 1,000 mg PO BID Qty: 60 0RF atorvastatin 40 mg tablet 40 mg PO QDAY Patient Comments: TAKE 1 TABLET BY MOUTH ONCE DAILY amlodipine 2.5 mg tablet 2.5 mg PO QDAY Patient Comments: TAKE 1 TABLET BY MOUTH ONCE DAILY FOR 30 DAYS Januvia 100 mg tablet 100 mg PO QDAY Patient Comments: TAKE 1 TABLET BY MOUTH ONCE DAILY FOR DIABETES FOR 30 DAYS Problem List Clinical Impression: Abscess, dental Patient/Caregiver Discharge Instructions Education Materials: ED Dental Abscess Additional Instructions: Please see your dentist as soon as possible for worsening symptoms or concerns return immediately Print Language: Tajik Stand Alone Forms: María Award Info., Patient Portal Info Letter PA/SR. PAYROLL MANAGER Supervising Physician PA/SR. PAYROLL MANAGER Supervising Physician: Dr. mack
[2024-09-30] MEDS: cefTRIAXone 1,000 MG, LIDOCAINE 1% 20 ML 2.1 ML IM (10:13)
== END 2024-09-30 10:15 | disposition home or self-care (01) ==
LOC: SERX 10:22
PROVIDERS: Emergency Provider Emergency Medicine
DX: K04.7 Periapical abscess without sinus (principal)
CPT/HCPCS: 96372; 99283; J0696; J3490

== ENCOUNTER 2024-10-18 16:42 | Emergency (ER) | payer MEDICARE, MEDICAID, SELFPAY ==
[2024-10-18 16:45] VITALS: PULSE 100; RESP 16; O2SAT 95
[2024-10-18 16:48] VITALS: BP 165/106; PULSE 116; RESP 19; TEMP 36.8; O2SAT 95
[2024-10-18 17:05] VITALS: BMI 26.0
--- NOTE | 2024-10-18 17:13 | EKG_ITS ---
[facility] Test Date: 2024-10-18 Pat Name: HENRIQUE LAL Department: Room: - Gender: Male Resident Inspector: : [id number] Requested By: ED Temporary Provider Order Number: [id number] Reading MD: ED Temporary Provider Measurements Intervals [place] Rate: 93 P: 60 MS: 148 QRS: -38 QRSD: 102 T: 55 QT: 368 QTc: 458 Interpretive Statements SINUS RHYTHM LEFT AXIS DEVIATION [QRS AXIS < -30] INCOMPLETE RIGHT BUNDLE BRANCH BLOCK [90+ ms QRS DURATION, TERMINAL R IN V1/V2, 40+ ms S IN I/aVL/V4/V5/V6] Compared to ECG 07/31/2024 10:39:08 Myocardial infarct finding no longer present ST (T wave) deviation no longer present /store/S0/[id number].pdf
--- NOTE | 2024-10-18 17:24 | XR_ITS ---
Examination: AP chest single view Technique one AP portable semiupright chest single view Date and time: October 18, 2024 1729 hours Comparison July 31, 2024 INDICATIONS: Chest pain and shortness of breath today. FINDINGS: Normal heart size CABG No lobar pneumonia or pulmonary edema. Moderate osteopenia IMPRESSION: No lobar pneumonia or pulmonary edema
--- NOTE | 2024-10-18 17:29 | EDNOTE_ITS ---
ED General RME/HPI General Chief complaint: General Adult/Misc Complain Stated complaint: Hyperglycemia Time Seen by Provider: 10/18/24 17:20 Arrival date/time: 10/18/24 16:42 RME / HPI RME / HPI narrative: 64-year-old male patient came in for evaluation regarding hyperglycemia. Patient told me that today check his blood sugar and it was high he does not remember the number. Patient is currently not having any symptoms except for mi ld chest discomfort been ongoing for a while. He told me that he had an open heart surgery long time ago.. Patient told me that his blood sugar now is 191 few minutes ago. Denies any vomiting fever. Denies any abdominal pain. Related Data Home Medications ?Medication ?Instructions ?Recorded ?Confirmed amlodipine 2.5 mg tablet 2.5 mg PO QDAY 01/27/2107/18 atorvastatin 40 mg tablet 40 mg PO QDAY 01/27/2101/27 sitagliptin phosphate 100 mg 100 mg PO QDAY 01/27/21 0 01/27/21 tablet (Januvia) Previous Rx's ?Medication ?Instructions ?Recorded metformin 1,000 mg tablet 1,000 mg PO BID #60 tabs 11/14 Allergies Allergy/AdvReac Type Severity Reaction Status Date / Time No Known Allergies Allergy Verified 09/30/24 09:27 Review of Systems Review of Systems Narrative Review of Systems: Review of system reviewed and within normal limits except mentioned in HPI ED Exam Narrative Physical exam: VITAL SIGNS: Reviewed. GENERAL APPEARANCE: Alert and interactive, follows commands, no acute distress, HEAD AND FACE: Non-traumatic. ENT: PERRL, pink conjunctivitis, eyelid no trauma, Mucous membrane moist. NECK: Supple, nontender, no nuchal rigidity. CHEST: No tenderness, no crepitus, no paradoxical movement, no retractions. LUNGS: Clear, well ventilated, symmetric, no rales, no wheezing, no ronchi, no stridor, good breath sounds bilaterally. HEART: Regular rate, regular rhythm, no murmur, no gallops. ABDOMEN: Soft, positive bowel sounds, nondistended, no guarding, nontender, no rebound, no masses, RECTAL: Deferred. GENITAL: Deferred. NEUROLOGICAL: Gross motor function intact sensory function intact, Appropriate for age. MUSCULOSKELETAL: low back nontender, full range of motion. EXTREMITIES: Nontender, full range of motion. SKIN: Color pink, dry, no rash, no lacerations, no abrasions, no contusions. LYMPHATICS: Deferred. Course Quality Measures none Orders Category Date Time Status EKG (ED ONLY) *Do not use* NOW Care 10/18/24 17:13 Completed EKG (ED ONLY) *Do not use* NOW Care 10/18/24 17:25 Completed EKG (ED Only) Stat Exams 10/18/24 17:13 Draft EKG (ED Only) Stat Exams 10/18/24 17:24 Ordered XR chest 1V Stat Exams 10/18/24 17:24 Completed Acetone [Beta Hydroxybutyrate] Stat Lab 10/18/24 18:01 Completed B-Type Natriuretic Peptide Stat Lab 10/18/24 18:01 Completed CBC Stat Lab 10/18/24 18:01 Completed Comprehensive Metabolic Panel Stat Lab 10/18/24 18:01 Completed Partial Thromboplastin Time Stat Lab 10/18/24 18:01 Completed Troponin I Stat Lab 10/18/24 18:01 Completed Urinalysis, C/S if Indicated Stat Lab 10/18/24 20:25 Received Sodium Chloride 0.9% 1000 ml [Ns] 1,000 ml Med 10/18/24 17:25 Discontinued IV 999 mls/hr Vital Signs Vital signs: Vital Signs Temperature 98.3 F 10/18/24 16:48 Pulse Rate 116 H 10/18/24 16:48 Respiratory Rate 19 10/18/24 16:48 Blood Pressure 165/106 H 10/18/24 16:48 Pulse Oximetry (%) 95 10/18/24 16:48 Oxygen Delivery Method Room Air 10/18/24 16:48 Discharge Plan Plan Patient Disposition: HOME (Self Care) Discharge Disposition comment: Stable Prescriptions/Referrals Prescriptions/Med Rec: No Action metformin 1,000 mg tablet 1,000 mg PO BID Qty: 60 0RF atorvastatin 40 mg tablet 40 mg PO QDAY Patient Comments: TAKE 1 TABLET BY MOUTH ONCE DAILY amlodipine 2.5 mg tablet 2.5 mg PO QDAY Patient Comments: TAKE 1 TABLET BY MOUTH ONCE DAILY FOR 30 DAYS Januvia 100 mg tablet 100 mg PO QDAY Patient Comments: TAKE 1 TABLET BY MOUTH ONCE DAILY FOR DIABETES FOR 30 DAYS Referrals: Andrei Ortiz MD [Primary Care Provider] - In 1 week Problem List Clinical Impression: Hyperglycemia Patient/Caregiver Discharge Instructions Discharge Activity: activity as tolerated Education Materials: High Blood Sugar (Hyperglycemia) Additional Instructions: Thank you for the opportunity for serving you today. You are stable for discharged . You are advised to: Follow-up with your PCP in 1 to 2 days Return to ED for worsening of symptoms Increase oral fluids Continue taking your medication for diabetes mellitus Print Language: Thai Stand Alone Forms: María Award Info., Patient Portal Info Letter MDM Narrative [facility] hospital course: 64-year-old male patient came in for evaluation regarding hyperglycemia. Patient told me that today check his blood sugar and it was high he does not remember the number. Patient is currently not having any symptoms except for mild chest discomfort been ongoing for a while. He told me that he had an open heart surgery long time ago.. Patient told me that his blood sugar now is 191 few minutes ago. Denies any vomiting fever. Denies any abdominal pain. EKG as interpreted by me showed sinus rhythm, ventricular rate of 93 bpm, no ST segment elevation depression noted. Patient's workup today all came back unremarkable latest blood sugar 185 with no sign of diabetic acidosis. Patient appears nontoxic and hemodynamically stable. Patient discharged home and instructed to follow-up with primary care provider in 24 to 48 hours. Instructed to return to the emergency department immediately if worsening of symptoms Medication Administration(s) Medication Administration History Discontinued Medications Sodium Chloride (Ns) 1,000 mls @ 999 mls/hr IV .Q1H1M ONE Stop: 10/18/24 18:25 Last Infusion: 10/18/24 19:08 Dose: Infused Documented By: Admin: 10/18/24 17:42 Dose: 999 mls/hr Documented By: ESTELLA IV fluids for hydration Diagnosis Differential diagnosis: Hyperglycemia, DKA, poor medication compliance Differential dx and/or dx ruled out: Hyperglycemia
[2024-10-18] MEDS: SODIUM CHLORIDE 0.9% 1000 ML 1,000 ML 999 ML IV (17:42)
[2024-10-18 18:31] LABS: Basophils # (Auto) 0.1 Thou/mm3 (0.0-0.2); Basophils % (Auto) 1 % (0-2.5); Eosinophils # (Auto) 0.3 Thou/mm3 (0.0-0.5); Eosinophils % (Auto) 5 % (0-10); Hematocrit 31.1 % (41.0-53.0); Hemoglobin 10.8 g/dL (13.5-16.0); Immature Granulocytes % (Auto) 0 % (0-0); Immature Granulocytes Auto 0.02 Thou/mm3 (0.00-0.00); Lymphocytes # (Auto) 3.5 Thou/mm3 (1.0-4.8); Lymphocytes % (Auto) 53 % (10-50); Mean Corpuscular HGB Conc 34.7 g/dl (31.0-37.0); Mean Corpuscular Volume 86 fL (80-100); Monocytes # (Auto) 0.6 Thou/mm3 (0.0-0.8); Monocytes % (Auto) 10 % (0-12); Neutrophils # (Auto) 2.1 Thou/mm3 (1.8-7.7); Neutrophils % (Auto) 31 % (37-80); Nucleated Red Blood Cell % 0 /100 WBC (0); Platelet Count 180 Thou/mm3 (140-440); RDW Standard Deviation 55.4 fL (35.1-43.9); White Blood Count 6.6 Thou/mm3 (3.8-10.6)
[2024-10-18 18:34] LABS: Beta Hydroxybutyrate 0.1 mmol/L (<0.6)
[2024-10-18 18:39] LABS: B-Type Natriuretic Peptide 177 pg/mL (0-100)
[2024-10-18 18:40] VITALS: BP 110/53; PULSE 92; RESP 17; TEMP 36.9; O2SAT 98
[2024-10-18 18:40] LABS: Alanine Aminotransferase 14 U/L (10-49); Albumin, Serum 3.9 gm/dL (3.4-4.8); Albumin/Globulin Ratio 1.3 (1.2-2.2); Alkaline Phosphatase 103 U/L (46-116); Anion Gap 10 (7-16); Aspartate Amino Transferase 30 U/L (0-34); BUN/Creatinine Ratio 8 Ratio (12-20); Bilirubin,Total 0.6 mg/dL (0.3-1.2); Blood Urea Nitrogen 6 mg/dL (9-23); Calcium 8.3 mg/dL (8.3-10.6); Calcium (Corrected) 8.4 mg/dL (8.5-10.1); Carbon Dioxide 23.7 mMol/L (20.0-31.0); Chloride 98 mMol/L (98-107); Creatinine (Component) 0.8 mg/dL (0.6-1.3); Estimated Creatinine Clearance 80.1 mL/min (>60); Globulin 2.9 gm/dL (2.3-3.5); Glucose 185 mg/dL (74-106); Osmolality,Calculated 267 (275-295); Partial Thromboplastin Time 33.9 Seconds (22.0-36.0); Sodium 132 mMol/L (136-145); Total Protein 6.8 gm/dL (5.7-8.2); Troponin I 0.039 ng/mL (0.0-0.045); eGFR > 60 See Note
[2024-10-18 19:08] VITALS: BP 110/53; PULSE 82; RESP 22; O2SAT 95
[2024-10-18 20:38] LABS: Collection Type, Urine Clean Catch; Squamous Epithelial Cell,Urine 0 /hpf (0-5); WBC,Urine 0 /hpf (0-5)
[2024-10-18 20:52] LABS: Bilirubin,Urine Negative (Negative); Blood,Urine Trace (Negative); Clarity,Urine Clear (Clear/Hazy); Color,Urine Colorless (Lt Yel-Yel); Culture Indicated,Urine Not Indicated; Glucose, Urine 2+ (Negative); Ketones,Urine Negative (Negative); Leukocyte Esterase,Urine Negative (Negative); Nitrite,Urine Negative (Negative); Protein,Urine Negative (Neg - Trace); RBC,Urine < 1 /hpf (0-3); Specific Gravity,Urine 1.005 (1.001-1.035); Urobilinogen,Urine Negative mg/dL (0.0-1.0)
[2024-10-18 21:03] VITALS: BP 116/80; PULSE 92; RESP 16; O2SAT 98
== END 2024-10-18 21:44 | disposition home or self-care (01) ==
PROVIDERS: Nurse Practitioner Family; Emergency Provider Family Medicine; PCP Family Medicine
DX: R73.9 Hyperglycemia, unspecified (principal)
CPT/HCPCS: 36415; 71045; 80053; 81001; 82010; 83880; 84484; 85025; 85730; 93005; 96360; 99284; J7030

== ENCOUNTER 2025-01-10 22:25 | Inpatient (IN) | payer MEDICARE, MEDICAID, SELFPAY ==
[2025-01-10 22:28] VITALS: PULSE 80; RESP 18; O2SAT 95; BMI 24.1
[2025-01-10 22:36] VITALS: BP 154/88; RESP 17; TEMP 36.9; O2SAT 96; BMI 26.9
--- NOTE | 2025-01-10 22:37 | EDNOTE_ITS ---
ED Fall Injury RME/HPI General Chief Complaint: Fall Stated Complaint: FALL Time Seen by Provider: 01/10/25 23:09 Arrival date/time: 01/10/25 22:25 RME / HPI RME / HPI Narrative: Refer to [facility]. Related Data Home Medications ?Medication ?Instructions ?Recorded ?Confirmed amlodipine 2.5 mg tablet 2.5 mg PO QDAY 01/27/2107/18 atorvastatin 40 mg tablet 40 mg PO QDAY 01/27/2101/27 sitagliptin phosphate 100 mg 100 mg PO QDAY 01/27/21 0 01/27/21 tablet (Januvia) Previous Rx's ?Medication ?Instructions ?Recorded metformin 1,000 mg tablet 1,000 mg PO BID #60 tabs 11/14 Allergies Allergy/AdvReac Type Severity Reaction Status Date / Time No Known Allergies Allergy Verified 09/30/24 09:27 Review of Systems Review of Systems Systems Reviewed: All systems reviewed, normal except as documented Past Medical History Past Medical History CARDIAC: Positive Cardiac Disorders, Hypercholesterolemia and Hypertension GASTROINTESTINAL: Positive Gastrointestinal Bleed MUSCULOSKELETAL: Positive Arthritis ENDOCRINE: Positive Endocrine Disorders and Diabetes Mellitus Type 2 HEMATOLOGIC: Positive Anemia PSYCHO/SOCIAL: Positive Depression and Anxiety OTHER HISTORY: Positive Hospitalization Surgical History SURGICAL: Positive Cardiac Surgery Social History SMOKING STATUS: Former smoker ALCOHOL: Current ALCOHOL FREQUENCY: 3 or More Drinks per Day ALCOHOL LAST INTAKE: Just Prior to Arrival HOUSING: [employer] (Son's) LIVES WITH: Children (Son) ED Exam Narrative Physical exam: Refer to [facility]. Course Quality Measures none Orders Category Date Time Status Bedside COVID-19 Antigen Test NOW Care 01/10/25 22:39 Active Bedside Influenza A&B Antigen Test NOW Care 01/10/25 22:[address] Screening NOW Care 01/10/25 22:42 Active EKG (ED ONLY) *Do not use* NOW Care 01/10/25 22:41 Completed Saline [Insert IV] NOW Care 01/10/25 22:[address] cervical spine wo con Stat Exams 01/10/25 22:[address] chest abdomen pelvis wo Stat Exams 01/10/25 22:[address] facial bones wo con Stat Exams 01/10/25 22:[address] foot LT w con Stat Exams 01/10/25 22:[address] head/brain wo con Stat Exams 01/10/25 22:41 Taken EKG (ED Only) Stat Exams 01/10/25 22:41 Draft XR chest 1V portable Stat Exams 01/10/25 22:41 Completed XR foot comp LT min 3V Stat Exams 01/10/25 22:41 Completed Acetaminophen Stat Lab 01/10/25 23:29 Completed Alcohol, Blood Medical Stat Lab 01/10/25 23:29 Completed Amylase Stat Lab 01/10/25 23:29 Completed BNP [B-Type Natriuretic Peptide] Stat Lab 01/10/25 23:29 Completed Beta Hydroxybutyrate Stat Lab 01/10/25 23:29 Completed Bilirubin,Direct Stat Lab 01/10/25 23:29 Completed Blood Culture (Lab) Stat Lab 01/10/25 23:29 Received CBC Stat Lab 01/10/25 23:29 Completed CK [Creatine Kinase] Stat Lab 01/10/25 23:29 Completed CMP [Comprehensive Metabolic Panel] Stat Lab 01/10/25 23:29 Completed CRP [C-Reactive Protein] Stat Lab 01/10/25 23:29 Completed Drug Screen,Urine Stat Lab 01/11/25 00:02 Completed ESR [Sed Rate (ESR)] Stat Lab 01/10/25 23:29 Completed Free T4 (Free Thyroxine) Stat Lab 01/10/25 23:29 Completed Hemoglobin A1C [Glycohemoglobin w (eAG)] Stat Lab 01/10/25 23:29 Completed Lactate (Lactic Acid) Stat Lab 01/10/25 23:29 Completed Lipase Stat Lab 01/10/25 23:29 Completed Magnesium Stat Lab 01/10/25 23:29 Completed PT [Prothrombin Time with INR] Stat Lab 01/10/25 23:29 Completed PTT [Partial Thromboplastin Time] Stat Lab 01/10/25 23:29 Completed Procalcitonin Stat Lab 01/10/25 23:29 Completed Salicylate Stat Lab 01/10/25 23:29 Completed TSH [Thyroid Stimulating Hormone] Stat Lab 01/10/25 23:29 Completed Troponin I Stat Lab 01/10/25 23:29 Completed UA, C/S IF [Urinalysis, C/S if Indicated] Stat Lab 01/11/25 00:02 Completed Cefepime Inj [Maxipime Inj] 2 gm Med 01/11/25 01:05 Discontinued SODIUM CHLORIDE 0.9% (Popper) [Ns 0.9% (P)] 50 ml IV X1 Ondansetron Inj [Zofran Inj] Med 01/10/25 22:39 Discontinued 4 mg IVP X1 ONE Sodium Chloride 0.9% 1000 ml [Ns] 1,000 ml Med 01/10/25 22:39 Discontinued IV 999 mls/hr Thiamine Inj [Vitamin B-1 Inj] 100 mg Med 01/10/25 22:39 Discontinued Sodium Chloride 0.9% [Ns] 100 ml IV X1 Vancomycin Inj Med 01/11/25 02:21 Discontinued 1,000 mg .ROUTE .STK-MED ONE Vancomycin Inj Med 01/11/25 02:27 Discontinued 1,000 mg .ROUTE .STK-MED ONE Vancomycin Inj 2,000 mg Med 01/11/25 02:00 Active Sodium Chloride 0.9% 500 ml [Ns] 500 ml IV X1 Vital Signs Vital signs: Vital Signs Temperature 98.4 F 01/10/25 22:36 Respiratory Rate 17 01/10/25 22:36 Blood Pressure 154/88 H 01/10/25 22:36 Pulse Oximetry (%) 96 01/10/25 22:36 Oxygen Delivery Method Room Air 01/10/25 22:36 Fall MDM Narrative MDM Narrative:: Scribe Attestation: Janay Rowland, am scribing for and in the presence of Dr. Asif. Provider Notation: Although this document has been carefully reviewed, there may still be some phonetic and other typographical errors.? These errors are purely grammatical due to imperfections in the software program and should not be construed in any way to? compromise the substance of the patient's medical care during this visit. This section includes all my notes and documentations, including HPI, PE, and ED course. Augie Asif MD HPI: 64 y/o male with Hx of Type II DM, Alcoholism, and HTN BIBA from home after falling. Unable to obtain history from the patient due to intoxication. Uncertain about the timing of the fall and mechanism. Patient doesn't report any pain. But he has obvious head injury with abrasions and ecchymoses. ROS: Unable to obtain from the patient due to current clinical condition. Physical Exam: General: Alert and obviously intoxicated. Eyes: Conjunctivae and lids clear. EOMI. PERRL. ENT: No nasal congestion. Neck: Supple. No obvious tenderness. Heart: RRR. Lungs: No respiratory distress. Good air movement. No severe rhonchi, wheezing, rales. Chest: No obvious tenderness. Abdomen: Soft and nontender. Normal bowel sounds. No distension. No rebound or guarding. Back: Equivocal spinal tenderness, difficult to localize. Legs: No clubbing, cyanosis, edema. Skin: Warm and dry. Head abrasions and contusions noted, varying size and shape. Neuro: Alert and oriented X 1. Cranial Nerves II-XII grossly intact. No peripheral motor deficits. Musculoskeletal: All major joints and bones are not tender with no limited ROM. I reviewed EMS notes. I reviewed all diagnostic test results: My interpretation of the EKG is: Sinus rhythm (78 bpm) with nonspecific ST-T changes. My interpretation of the chest x-ray is: NAD. My interpretation of the left foot x-ray is: Osteomyelitis interphalangeal joint second digit and distal second metatarsal. My review of the Head/Brain CT report is: NAD. My review of the Facial Bones CT report is: No acute fracture. My review of the C-Spine CT report is: No acute fracture. My review of the Chest/Abdomen/Pelvis CT report is: L1 vertebral body fracture with retropulsion, causing moderate spinal canal narrowing. My review of the Left Foot CT report is: Osteomyelitis. Blood tests and urine tests remarkable for serum alcohol 270.9. Covid/Influenza: Negative. At this point, diagnoses include: Fall, Alcohol intoxication, Head injury, L1 vertebral fracture, Lumbar spinal stenosis, Osteomyelitis of left foot Treatment here included: IVF, Vitamin B 100 mg, Zofran 4 mg, Vancomycin 2 G, Maxipime 2 G. Neurosurgery transfer pending. At 6 AM on 01/11/2025, the care of the patient transferred to Dr. SMALL. Augie Asif MD Patient data External records reviewed:: [facility] previous records (Reviewed prior ED records from 10/18/24. Patient was seen for Hyperglycemia.) and EMS form Clinical information provided by:: patient and EMS Social determinants that could affect healthcare access:: alcohol use Patient has the following chronic illnesses:: Hypercholesterolemia, Hypertension, Arthritis, Diabetes Mellitus Type 2, Anemia, Depression, Anxiety How is presenting disease/condition affected by chronic disease/condition?: exacerbated by Evaluation data The following diagnostics were reviewed and interpreted by me:: lab results, radiology exam(s) and EKG tracing(s) (My interpretation of the EKG is: Sinus rhythm (78 bpm) with nonspecific ST-T changes. Augie Asif MD) Lab and/or radiology exams considered but not ordered:: None Interpretation Summary: I reviewed all diagnostic test results: My interpretation of the EKG is: Sinus rhythm (78 bpm) with nonspecific ST-T changes. My interpretation of the chest x-ray is: NAD. My interpretation of the left foot x-ray is: Osteomyelitis interphalangeal joint second digit and distal second metatarsal. My review of the Head/Brain CT report is: NAD. My review of the Facial Bones CT report is: No acute fracture. My review of the C-Spine CT report is: No acute fracture. My review of the Chest/Abdomen/Pelvis CT report is: L1 vertebral body fracture with retropulsion, causing moderate spinal canal narrowing. My review of the Left Foot CT report is: Osteomyelitis. Blood tests and urine tests remarkable for serum alcohol 270.9. Covid/Influenza: Negative. Medications / Prescriptions Medications or Prescriptions considered but not ordered:: None Medication administrations:: Medication Administration History Vancomycin HCl 2,000 mg/ (Sodium Chloride) 500 mls @ 150 mls/hr IV X1 ONE Stop: 01/11/25 05:19 Last Admin: 01/11/25 02:37 Dose: 150 mls/hr Documented By: JAYE Comments: premix bag not available. med was pulled via override. Discontinued Medications Sodium Chloride (Ns) 1,000 mls @ 999 mls/hr IV .Q1H1M ONE Stop: 01/10/25 23:39 Last Infusion: 01/11/25 01:04 Dose: Infused Documented By: Admin: 01/10/25 23:51 Dose: 999 mls/hr Documented By: JAYE Thiamine HCl 100 mg/ Sodium (Chloride) 101 mls @ 202 mls/hr IV X1 ONE Stop: 01/10/25 23:08 Last Infusion: 01/11/25 01:04 Dose: Infused Documented By: Admin: 01/10/25 23:51 Dose: 202 mls/hr Documented By: JAYE Cefepime HCl 2 gm/ Sodium (Chloride) 50 mls @ 100 mls/hr IV X1 ONE Stop: 01/11/25 01:34 Last Infusion: 01/11/25 02:08 Dose: Infused Documented By: Admin: 01/11/25 01:23 Dose: 100 mls/hr Documented By: JAYE Ondansetron HCl (Ondansetron Inj 2 Mg/Ml Inj 2 Ml) 4 mg IVP X1 ONE; Protocol Stop: 01/10/25 22:40 Last Admin: 01/10/25 23:51 Dose: 4 mg Documented By: JAYE Vancomycin HCl (Vancomycin Inj 1,000 Mg Vial) Confirm Administered Dose 1,000 mg .ROUTE .STK-MED ONE Stop: 01/11/25 02:22 Last Admin: 01/11/25 02:38 Dose: Not Given Documented By: JAYE Non-Admin Reason: Duplicate Medication on eMAR Vancomycin HCl (Vancomycin Inj 1,000 Mg Vial) Confirm Administered Dose 1,000 mg .ROUTE .STK-MED ONE Stop: 01/11/25 02:28 Last Admin: 01/11/25 02:38 Dose: Not Given Documented By: JAYE Non-Admin Reason: Duplicate Medication on eMAR IVF, Vitamin B 100 mg, Zofran 4 mg, Vancomycin 2 G, Maxipime 2 G. Consultations Consultation(s) initiated? (list below): No Diagnosis Fall Differential Diagnosis: syncope, compression fracture, concussion with loss of consciousness and concussion without loss of consciousness Most likely diagnosis given after review of the tests above:: At this point, diagnoses include: Fall, Alcohol intoxication, Head injury, L1 vertebral fracture, Lumbar spinal stenosis, Osteomyelitis of left foot Admission Indicated Admission indicated?: not indicated Explain why admission is indicated or not indicated:: No neurosurgery service here at this facility. Admission Request Was there a request for admission?: No Disposition Plan Disposition Plan: other (specify) (Patient signed out to next shift physician at 6 AM on 01/11/2025.) Discharge Plan Prescriptions/Referrals Prescriptions/Med Rec: No Action metformin 1,000 mg tablet 1,000 mg PO BID Qty: 60 0RF atorvastatin 40 mg tablet 40 mg PO QDAY Patient Comments: TAKE 1 TABLET BY MOUTH ONCE DAILY amlodipine 2.5 mg tablet 2.5 mg PO QDAY Patient Comments: TAKE 1 TABLET BY MOUTH ONCE DAILY FOR 30 DAYS Januvia 100 mg tablet 100 mg PO QDAY Patient Comments: TAKE 1 TABLET BY MOUTH ONCE DAILY FOR DIABETES FOR 30 DAYS Referrals: No Primary/Family,Physician [Primary Care Provider] - In 1 week Problem List Clinical Impression: Fall, Alcohol intoxication, Head injury, L1 vertebral fracture, Lumbar spinal stenosis, Osteomyelitis of left foot Patient/Caregiver Discharge Instructions Print Language: Uzbek
--- NOTE | 2025-01-10 22:41 | XR_ITS ---
Examination: CT cervical spine without contrast 2-D sagittal reconstructions 2-D coronal reconstructions 3-D reconstructions. Exam date and time:January 11, 2025, 0249 hours Ground-level fall today with injury to the neck, neck pain CTDI:vol (mGy) 14.06. DLP: (mGycm) 358. Technique: Multiple 2 mm axial sections of the cervical spine have been obtained. The coronal and sagittal reconstructions have been obtained. 3-D reconstructions have been obtained. Low dose protocols were performed. One or more of the following dose reduction techniques were used; automated exposure control, adjustment of the mA and/or KV according to patient size, use of iterative reconstruction technique. Findings: Axial sections demonstrate intact base of the skull. C1 exhibit satisfactory relationship to the odontoid. No acute cervical vertebral body fracture seen. Alignment posterior spinous processes satisfactory. Impression: No acute cervical fracture.
--- NOTE | 2025-01-10 22:41 | XR_ITS ---
Examination: CT brain head without contrast. 2-D sagittal coronal reconstructions Date and time of exam:January 11, 2025, 0246 hours INDICATIONS: Patient fell today with injury to the head, head pain CTDI: vol (mGy):50.50 DLP: (mGycm):1018 Technique: Multiple CT axial sections of the brain have been obtained, 5 mm slice thickness. Contrast has not been administered. 2-D sagittal, coronal reconstructions have been obtained Low dose protocols were performed. One or more of the following dose reduction techniques were used; automated exposure control, adjustment of the mA and/or KV according to patient size, use of iterative reconstruction technique. Findings: No significant ventricular enlargement. Intra-axial or extra-axial hemorrhage density is not seen. No mass effect or midline shift Basal cisterns are not remarkable. Fourth ventricle is midline. Cranial vault intact. Significant chronic sinus disease Impression: Negative for acute hemorrhage, mass effect or midline shift
--- NOTE | 2025-01-10 22:41 | XR_ITS ---
Examination: CT maxillofacial, without intravenous contrast. 2-D sagittal reconstructions. 3-D reconstructions. Date and time of exam:January 11, 2025 0247 hours INDICATIONS: Ground-level fall today with injury to the face, facial pain. CTDI: vol (mGy):21.40 DLP: (mGycm):400 Technique: Multiple axial images of maxillofacial region, 3.0 mm slice thickness. 2-D sagittal and coronal reconstructions. 3-D reconstructions. Low dose protocols were performed. One or more of the following dose reduction techniques were used; automated exposure control, adjustment of the mA and/or KV according to patient size, use of iterative reconstruction technique. Findings: The soft tissue is prominent in the posterior tongue, axial image 38 with no necrotic abscess noted Prominent chronic sinusitis Frontal bones intact as well as orbital rims No nasal bone fracture Multiple maxillary dental caries Maxilla and mandible intact IMPRESSION: No acute facial fracture Soft tissue prominence posterior tongue Clinical correlation advised, consider MRI soft tissue neck follow-up pre and postcontrast.
--- NOTE | 2025-01-10 22:41 | XR_ITS ---
Examination: CT left foot, without contrast. 2-D sagittal reconstructions. 2-D coronal reconstructions. 3-D reconstructions. Date and time of exam:January 11, 2025 0258 hours INDICATIONS: Nonhealing ulcer redness swelling and pain involving the foot today CTDI: vol (mGy):4.24 DLP: (mGycm):160 Technique: Multiple 1.25 mm axial sections of the left foot without intravenous contrast have been obtained. 2-D sagittal and coronal reconstructions have been obtained. 3-D reconstructions have been obtained. Low dose protocols were performed. One or more of the following dose reduction techniques were used; automated exposure control, adjustment of the mA and/or KV according to patient size, use of iterative reconstruction technique. Findings: Periosteal new bone along the shafts of the distal tibia and fibula Soft tissue defect adjacent to the distal first metatarsal at the amputation site Erosions involving the distal second metatarsal Erosions involving the middle phalanx second digit and base of the distal phalanx IMPRESSION: Chronic osteomyelitis distal chest tibia-fibula Osteomyelitis distal second metatarsal Osteomyelitis middle and distal phalanges second digit Consider MRI foot without contrast follow-up
--- NOTE | 2025-01-10 22:41 | XR_ITS ---
Examination: Foot, left, 3 views Technique: AP, oblique, lateral views foot, 3 views Date and time of exam: January 10, 2025 1111 hours INDICATIONS: Left foot pain today. FINDINGS: Soft tissue defect at the amputated distal first metatarsal Chronic erosions at the interphalangeal joint second digit as well as erosions distal second metatarsal No fracture IMPRESSION: Osteomyelitis interphalangeal joint second digit and distal second metatarsal Consider MRI foot without contrast follow-up
--- NOTE | 2025-01-10 22:41 | XR_ITS ---
Examination: AP chest single view TECHNIQUE: AP portable upright chest single view Date and time: January 11, 2000 2516 hours, comparison October 18, 2024 INDICATIONS: Chest pain and shortness of breath today. FINDINGS: Normal heart size No pneumonia or pulmonary edema Minor atelectasis left lower lung zone Multiple right-sided rib fractures Median sternotomy wires IMPRESSION: No pneumonia or pulmonary edema
--- NOTE | 2025-01-10 22:41 | EKG_ITS ---
[facility] Test Date: 2025-01-10 Pat Name: HENRIQUE LAL Department: Room: - Gender: Male Admissions Officer: : 1960 Requested By: Augie Mann Order Number: [id number] Reading MD: Augie Mann Measurements Intervals [place] Rate: 78 P: 31 TX: 162 QRS: -40 QRSD: 98 T: 49 QT: 385 QTc: 441 Interpretive Statements SINUS RHYTHM LEFT AXIS DEVIATION [QRS AXIS < -30] INCOMPLETE RIGHT BUNDLE BRANCH BLOCK [90+ ms QRS DURATION, TERMINAL R IN V1/V2, 40+ ms S IN I/aVL/V4/V5/V6] Compared to ECG 10/18/2024 17:13:55 No significant changes /store/S0/[id number]/ecg/[id number].pdf
--- NOTE | 2025-01-10 22:42 | XR_ITS ---
Examination: CT chest, without intravenous contrast. CT abdomen, without intravenous contrast. CT pelvis, without intravenous contrast. 2-D sagittal and coronal reconstructions. 3-D reconstructions. Date and time of exam:January 11, 2025 0251 hours INDICATIONS: Patient fell today with injury to the chest and abdomen, chest pain abdomen pain CTDI vol (mgy) 11.01 DLP (MGycm)858. Technique: Multiple CT images, 3.0 mm slice thickness, obtained chest, abdomen, pelvis, with the high-resolution 64 slice scanner.. Sagittal and coronal 2-D reconstructions are obtained. 3-D reconstructions Low dose protocols were performed. One or more of the following dose reduction techniques were used; automated exposure control, adjustment of the mA and/or KV according to patient size, use of iterative reconstruction technique. Findings: Thoracic aorta pulmonary arteries intact on this noncontrast study No hemopericardium No pneumothorax or hemothorax Sternal segments intact Thoracic vertebral bodies are intact A severe compression fracture L1 with retropulsion of this vertebral body 6 mm This fracture was acute on the 01/27/2024 examination No acute displaced rib fractures No abdominal parenchymal laceration The abdominal aorta is intact No free blood in the abdomen or pelvis Urinary bladder intact Hips bones of the pelvis intact IMPRESSION: Thoracic aorta pulmonary arteries intact No pneumothorax or hemothorax No abdominal parenchymal laceration No free blood in the abdomen or pelvis Severe old compression fracture L1 vertebral body
[2025-01-10 23:43] LABS: Lactate (Lactic Acid) 1.7 mMol/L (0.4-2.0)
[2025-01-10 23:48] LABS: Basophils # (Auto) 0.1 Thou/mm3 (0.0-0.2); Basophils % (Auto) 1 % (0-2.5); Eosinophils # (Auto) 0.3 Thou/mm3 (0.0-0.5); Eosinophils % (Auto) 5 % (0-10); Hematocrit 34.2 % (41.0-53.0); Hemoglobin 11.9 g/dL (13.5-16.0); Immature Granulocytes Auto 0.01 Thou/mm3 (0.00-0.00); Lymphocytes # (Auto) 3.0 Thou/mm3 (1.0-4.8); Lymphocytes % (Auto) 45 % (10-50); Mean Corpuscular HGB Conc 34.8 g/dl (31.0-37.0); Mean Corpuscular Hemoglobin 31.8 pg (25.0-35.0); Mean Corpuscular Volume 91 fL (80-100); Monocytes # (Auto) 0.6 Thou/mm3 (0.0-0.8); Monocytes % (Auto) 9 % (0-12); Neutrophils # (Auto) 2.7 Thou/mm3 (1.8-7.7); Neutrophils % (Auto) 40 % (37-80); Nucleated Red Blood Cell # 0.00 Thou/mm3 (0.00-0.00); Nucleated Red Blood Cell % 0 /100 WBC (0); Platelet Count 157 Thou/mm3 (140-440); RDW Standard Deviation 47.5 fL (35.1-43.9); Red Blood Count 3.74 Miln/mm3 (4.50-5.90); White Blood Count 6.6 Thou/mm3 (3.8-10.6)
[2025-01-10] MEDS: ONDANSETRON INJ 2 MG/ML INJ 2 ML 4 MG IVP (23:51)
[2025-01-10] MEDS: THIAMINE INJ 100 MG in SODIUM CHLORIDE 0.9% 100 ML 202 MG IV (23:51)
[2025-01-10] MEDS: SODIUM CHLORIDE 0.9% 1000 ML 1,000 ML 999 ML IV (23:51)
[2025-01-10 23:55] LABS: Sed Rate (ESR) 21 mm/hr (0-20)
[2025-01-11] VITALS (10 sets, daily range): BP systolic 100–157; BP diastolic 58–96; PULSE 65–88; RESP 14–96; TEMP 35.8–37.3; O2SAT 94–97; BMI 26.9
[2025-01-11] LABS: INR 1.1 (0.9-1.3); Partial Thromboplastin Time 32.5 Seconds (22.0-36.0); Prothrombin Time 11.9 Seconds (9.0-12.2)
[2025-01-11 00:03] LABS: B-Type Natriuretic Peptide 184 pg/mL (0-100)
[2025-01-11 00:08] LABS: Beta Hydroxybutyrate 0.1 mmol/L (<0.6)
[2025-01-11 00:10] LABS: Collection Type, Urine Clean Catch; Squamous Epithelial Cell,Urine 0 /hpf (0-5)
[2025-01-11 00:15] LABS: Bilirubin,Urine Negative (Negative); Blood,Urine Trace (Negative); Clarity,Urine Clear (Clear/Hazy); Color,Urine Colorless (Lt Yel-Yel); Culture Indicated,Urine Not Indicated; Glucose, Urine Negative (Negative); Ketones,Urine Negative (Negative); Leukocyte Esterase,Urine Negative (Negative); Nitrite,Urine Negative (Negative); PH,Urine 6.5 (5.0-7.0); Protein,Urine Negative (Neg - Trace); RBC,Urine 1 /hpf (0-3); Specific Gravity,Urine 1.007 (1.001-1.035); Urobilinogen,Urine Negative mg/dL (0.0-1.0); WBC,Urine < 1 /hpf (0-5)
[2025-01-11 00:36] LABS: Glucose Estimated Average 157 mg/dL (80-131); Hemoglobin A1C 7.1 % Hgb (4.8-6.0)
[2025-01-11 01:03] LABS: Amphetamine/Methamp Scrn,U Negative (Negative); Barbiturate Screen,Urine Negative (Negative); Benzodiazepines Screen,Urine Negative (Negative); Benzoylecgonine Screen, Ur Negative (Negative); Fentanyl Screen,Urine Negative (Negative); Opiate Screen,Urine Negative (Negative); THC Screen,Urine Negative (Negative)
[2025-01-11 01:22] LABS: Acetaminophen < 2.0 mcg/mL (10.0-20.0); Alanine Aminotransferase 7 U/L (10-49); Albumin, Serum 4.2 gm/dL (3.4-4.8); Albumin/Globulin Ratio 1.6 (1.2-2.2); Alcohol, Blood Medical 270.9 mg/dL (0-10.0); Alkaline Phosphatase 106 U/L (46-116); Anion Gap 9 (7-16); Aspartate Amino Transferase 30 U/L (0-34); BUN/Creatinine Ratio 9 Ratio (12-20); Bilirubin,Direct 0.3 mg/dL (0.0-0.3); Bilirubin,Total 0.9 mg/dL (0.3-1.2); Blood Urea Nitrogen 7 mg/dL (9-23); Calcium 9.2 mg/dL (8.3-10.6); Calcium (Corrected) 9.2 mg/dL (8.5-10.1); Carbon Dioxide 25.5 mMol/L (20.0-31.0); Chloride 98 mMol/L (98-107); Creatine Kinase 107 U/L (34-171); Creatinine (Component) 0.8 mg/dL (0.6-1.3); Estimated Creatinine Clearance 80.1 mL/min (>60); Free T4 (Free Thyroxine) 1.06 ng/dL (0.89-1.76); Globulin 2.6 gm/dL (2.3-3.5); Glucose 131 mg/dL (74-106); Lipase 76 U/L (12-53); Magnesium 1.7 mg/dL (1.6-2.6); Osmolality,Calculated 264 (275-295); Potassium 3.7 mMol/L (3.4-5.1); Procalcitonin < 0.04 ng/ml (0.0-0.49); Salicylate < 3.0 mg/dL; Sodium 132 mMol/L (136-145); Thyroid Stimulating Hormone 2.89 uIU/mL (0.55-4.78); Total Protein 6.8 gm/dL (5.7-8.2); Troponin I 0.030 ng/mL (0.0-0.045); eGFR > 60 See Note
[2025-01-11] MEDS: CEFEPIME INJ 2 GM in SODIUM CHLORIDE 0.9% (Popper) 50 ML IV ×3 (01:23→20:44)
[2025-01-11 01:41] LABS: Amylase 86 U/L (30-118); C-Reactive Protein < 0.5 mg/dL (0.0-0.9)
--- NOTE | 2025-01-11 01:53 | PC.NURSE ---
PT BIBA FROM HOME FOR A WITNESS FALL AROUND 1800 01/10. FALL WAS WITNESSED BY SON. PT DENIES LOC. PT DOES HAVE SOME BRUSING TO THE LEFT UPPER EYEBROW. PT DENIES HEAD PAIN, SOB OR CHEST PAIN. PT DOES STATE THAT HE WAS DRINKING AND HAS A HISTORY OF CHRONIC DRINKING. CIWA ASSESSED.
[2025-01-11] MEDS: Vancomycin Inj 2,000 MG in SODIUM CHLORIDE 0.9% 500 ML 500 ML 150 MG IV (02:37)
--- NOTE | 2025-01-11 03:27 | PRELIM_ITS ---
CT scan of the head without intravenous contrast (axial sections with sagittal and coronal reformats) January 11, 2025 0246 hours Clinical History: Head injury after fall Comparison: No prior study is available for comparison. Findings: There is no evidence of intracranial hemorrhage, mass effect or midline shift. There are periventricular white matter hypodensities, compatible with chronic small vessel ischemia. There is mild volume loss. There is atheromatous calcification of the intracranial arteries. The calvarium is intact. There is [id number] mucosal thickening in bilateral ethmoid, frontal, sphenoid and maxillary sinuses. The mastoid air cells are clear. Impression: 1. No evidence of intracranial hemorrhage, midline shift or calvarial fracture. 2. Periventricular chronic small vessel ischemia and volume loss. 3. Other findings as described above. Suggest clinical correlation and follow up accordingly. Report Electronically Signed By: Pablo Robbins 01/11/2025 3:27:20 AM [EST]
--- NOTE | 2025-01-11 03:30 | PRELIM_ITS ---
CT scan of the cervical spine without intravenous contrast (axial sections with sagittal and coronal reformats) January 11, 2025 0249 hours Clinical History: Trauma. Comparison: No prior study is available for comparison. Findings: No evidence of acute fracture or traumatic subluxation. The bones are osteopenic. There are multilevel degenerative changes in the form of marginal osteophytes, decreased disc height, uncinate process, and facet arthrosis, most prominent at the C5-C6 level causing mild spinal canal and bilateral neural foraminal narrowing. The prevertebral soft tissues are unremarkable. There is wall thickening of the esophagus, which may be due to reflux esophagitis or due to other inflammatory pathology. Impression: 1. No evidence of acute fracture or traumatic subluxation. 2. Degenerative changes as described above. 3. Other findings as described above. Suggest clinical correlation and follow up accordingly. Report Electronically Signed By: Pablo Robibns 01/11/2025 3:29:47 AM [EST]
--- NOTE | 2025-01-11 03:41 | PRELIM_ITS ---
CT maxillofacial without intravenous contrast (axial sections with sagittal and coronal reformats). January 11, 2025 0247 hours Clinical History: Trauma. Comparison: No prior study is available for comparison. Findings: There is no evidence of acute maxillofacial fracture. The maxillary sinus and orbital greenwood are intact. Periapical lucencies are seen involving multiple teeth, likely representing periodontal disease. No fluid levels are seen. No evidence of intraorbital hematoma, proptosis, globe injury or radiodense foreign body. The zygomatic arches and mandible are intact. There is mild mucosal thickening in bilateral ethmoid, frontal, sphenoid and maxillary sinuses. There is soft tissue thickening in the posterior tongue with effacement of the vallecula, which may be due to lymphoid hyperplasia versus neoplastic pathology (sagittal image 61/127 and axial images 31-40/144). Impression: 1. No evidence of acute maxillofacial fracture. 2. Soft tissue thickening in the posterior tongue with effacement of the vallecula, which may be due to lymphoid hyperplasia versus neoplastic pathology. 3. Other findings as described above. Suggest clinical correlation and follow up accordingly. Discussion Details: Results verbally communicated to : Dr. Asif at 03:32 AM 01/11/2025 Report Electronically Signed By: Pablo Robbins 01/11/2025 3:41:10 AM [EST]
--- NOTE | 2025-01-11 04:10 | PRELIM_ITS ---
CT scan of the chest, abdomen and pelvis without intravenous contrast (axial sections with sagittal, coronal and 3D reformats) January 11, 2025 at 0251 hours Clinical History: Fall. Comparison: None. Findings: The evaluation is limited due to the absence of intravenous contrast. There is bibasilar atelectasis. There is no pulmonary contusion, pleural effusion or pneumothorax. The thoracic aorta demonstrates atheromatous calcification without evidence of aneurysm. Coronary artery calcification is noted. There is no mediastinal collection. There is no pericardial effusion. Nonspecific perinephric fat stranding is noted bilaterally. The liver, gallbladder, spleen, pancreas and adrenals are unremarkable on this noncontrast study. The bowel is unremarkable for trauma. There are multiple colonic diverticula without evidence of diverticulitis. The abdominal aorta demonstrates atheromatous calcification without evidence of aneurysm. The urinary bladder is unremarkable. There is no free fluid or free air. There is marked compression deformity of L1 vertebral body with retropulsion, causing moderate spinal canal narrowing. Degenerative changes are identified in the spine. There is grade I anterolisthesis of L4 over L5, likely degenerative. Median sternotomy wires are identified with scarring in the overlying anterior chest wall. There are old fractures of the right 5th through 8th ribs. Impression: 1. No evidence of acute visceral injury to the chest, abdomen or pelvis on this noncontrast study. 2. Age indeterminate compression deformity of L1 vertebral body as described. Recommend clinical correlation, comparison with prior study/ further evaluation with MRI as indicated. 3. Other findings as described above. Discussion Details: Results verbally communicated to : Dr. Asif at 04:04 AM 01/11/2025 Report Electronically Signed By: Herman Bearden 01/11/2025 4:09:38 AM [EST]
--- NOTE | 2025-01-11 04:59 | PRELIM_ITS ---
CT scan of the left foot with intravenous contrast (axial sections with sagittal and coronal reformats) January 11, 2025 0258 hours Clinical History: Ulcer with erythema/edema/calor/pain Reference is made to the prior report dated 09/19/2018 Findings: Post phalanges amputation of the first toe. The bones are osteopenic. Bone fusion of 2nd, 3rd and 4th metatarsal bones. Marked osteoarthrosis of metatarsophalangeal and proximal interphalangeal joints of 2nd toe. Soft tissue swelling of the residual first metatarsal with ulcer along its plantar surface. There is also soft tissue swelling of the 2nd toe with likely bone resorption of the head of mid 2nd phalanx. There is periostosis of distal tibia and fibula. Impression: Post phalanges amputation of the first toe. Soft tissue swelling of the residual first metatarsal with ulcer along its plantar surface. Soft tissue swelling of the 2nd toe with likely bone resorption of the head of mid 2nd phalanx suggestive of osteomyelitis. Periostosis of distal tibia and fibula, likely sequela of osteomyelitis. Recommend further evaluation with if clinically indicated. Report Electronically Signed By: David Sharma 01/11/2025 4:58:57 AM [EST]
--- NOTE | 2025-01-11 06:28 | PD.EDADDENDU ---
Emergency Room Addendum Addendum Narrative: 0600: Care assumed from Dr. Asif, the previous shift emergency physician. Past medical, surgical, social and family history reviewed. Vitals and home medications reviewed. I will assume the care of the patient at this time, pending transfer for neurosurgery. Please refer to the emergency department record for history and examination from initial visit.?The following addendum documentation note is intended to reflect any pending information, findings, or radiology results not included in the patient?s initial chart. CT reports were reviewed. CT chest/abdomen/pelvis shows a severe old compression fracture L1 vertebral body, no acute findings. 0740: I spoke with resident Dr. Christina working with hospitalist Dr. Christina. Discussed patients PMHx, HPI, ED course, exam findings, labs, and radiology results. The hospitalist agree to accept the patient for admission.
--- NOTE | 2025-01-11 06:52 | PC.NURSE ---
5595 [facility] F CONTACTED SPECIALTY UNAVAILABLE. [facility]NA[facility]IL[facility] FOR THE OSTEOMYELITIS.
--- NOTE | 2025-01-11 06:56 | PC.NURSE ---
0656 PKT SENT TO [facility] AT THIS TIME, IMAGES PUSHED ALSO.
--- NOTE | 2025-01-11 07:10 | PC.CC ---
0913 spoke to ED charge nurse. Transfer is canceled because it is a severe old compression fracture L1 vertebral body with no acute findings. Pt is being admitted instead. 0729 spoke to ED charge nurse. Transfer is on hold for now because it is a severe old compression fracture L1 vertebral body. 0710 received hand off from warehouse shipping associate that pt needs to be transferred for L1 vertebral body fracture with retropulsion need neurosurgery services.
--- NOTE | 2025-01-11 08:00 | PC.NURSE ---
In to assess pt. Pt resting quietly at this time without any complaints. Pt requesting to go home. Pt updated on plan of care. Call light placed within reach. Plan of care ongoing.
--- NOTE | 2025-01-11 10:11 | ECHO_ITS ---
Transthoracic Echo Report Ht (in): 65 Wt (lb): 162 Exam Location: Echo Lab Status: Emergency Tearoom Host/Hostess: Taryn Tolliver Indications: Procedure Performed: BP: 157 / 89 HR: 57 MEASUREMENTS (Male / Female) Normal Values 2D ECHO LV Diastolic Diameter PLAX 3.4 cm 4.2 - 5.9 / 3.9 - 5.3 cm LV Systolic Diameter PLAX 2.6 cm IVS Diastolic Thickness 1.1 cm 0.6 - 1.0 / 0.6 - 0.9 cm LVPW Diastolic Thickness 1.4 cm 0.6 - 1.0 / 0.6 - 0.9 cm LV Relative Wall Thickness 0.7 LVOT Diameter 2.0 cm LA Volume Index 24.6 cm?/m? 16 - 28 cm?/m? Ascending Aorta Diameter 2.9 cm M-MODE AV Cusp Separation MM 2.0 cm DOPPLER AV Peak Velocity 128.0 cm/s AV Peak Gradient 6.6 mmHg AV Mean Gradient 4.0 mmHg AV Velocity Time Integral 21.4 cm LVOT Peak Velocity 106.0 cm/s LVOT Peak Gradient 4.5 mmHg LVOT Velocity Time Integral 21.9 cm LVOT Cardiac Index 2117.1 cm?/min?m? AV Area Cont Eq vti 3.2 cm? AV Area Cont Eq pk 2.6 cm? MV Area PHT 3.5 cm? Mitral E Point Velocity 53.3 cm/s Mitral A Point Velocity 47.6 cm/s Mitral E to A Ratio 1.1 LV E' Lateral Velocity 8.2 cm/s Mitral E to LV E' Lateral Ratio 6.5 LV E' Septal Velocity 5.4 cm/s Mitral E to LV E' Septal Ratio 9.8 TR Peak Velocity 206.7 cm/s TR Peak Gradient 17.1 mmHg PV Peak Velocity 80.4 cm/s PV Peak Gradient 2.6 mmHg FINDINGS Left Ventricle Normal left ventricular size. Mild LVH. Grade II diastolic function. The ejection fraction is visually estimated at 50-55% Right Ventricle The right ventricle is normal in size and systolic function. The estimated right ventricular systolic pressure, 28 mmHg. Left Atrium The left atrial cavity size is mildly increased. Right Atrium The right atrial cavity size is moderately increased. Atrial Septum The interatrial septum appears normal with no evidence of a shunt. Aorta The aorta is normal by two-dimensional, color flow and Doppler interrogation. Mitral Valve Mitral annular calcification. Mild mitral regurgitation. Aortic Valve The aortic valve is trileaflet and normal by two-dimensional, color flow and Doppler interrogation. There is no significant aortic valve regurgitation. Tricuspid Valve The tricuspid valve is normal by two-dimensional, color flow and Doppler interrogation. There is mild tricuspid valve regurgitation. Pulmonic Valve The pulmonic valve is not well visualized. There is no significant pulmonic valve regurgitation. Vessels The pulmonary artery appears normal. The inferior vena cava pulmonary and hepatic veins appear normal. Pericardium The pericardium is normal by two-dimensional imaging. There is no significant pericardial effusion. CONCLUSIONS Indication: Cardiomyopathy Normal left ventricular size and function. Approximate ejection fraction is 50-55%. RV normal in size and function LA is mildly dilated. RA is mildly dilated. Mild MR, TR. Mary Velazco (Electronically Signed) Final Date: 13 January 2025 17:21
--- NOTE | 2025-01-11 10:28 | PD.RESHP ---
Documentation for date of: 01/11/25 [facility] History of Present Illness History of present illness: Mr. Paige is a 64-year-old male with past medical history significant for hypertension, hyperlipidemia, [id number] type 2 diabetes, CAD status post CABG, HFrEF with EF of 25% presented to the ED after his son noticed a an ulcer on the plantar surface of his left foot. Patient states that he has had this ulcer for at least 3 years and has been seen by a architectural project captain multiple times who has undergone debridement and wound care at the wound care clinic. Patient states that the ulcer just has not ever healed and was never told anything else. Patient also states that he has been using methylene blue to clean the wound regularly. Patient has history of multiple toe amputations because of diabetic foot ulcers in the past. But in the recent years he states he has had better blood sugar controls and manages his diabetes better. Otherwise patient denies any fever, chills. Patient denies any chest pain, pressure, or palpitations. Patient was recently in the hospital few months ago for NSTEMI for which he was told he has multivessel disease and was transferred to [facility] where he underwent CABG. Patient states he was taking dual antiplatelet therapy for for a short period of time and then was discontinued. Patient states since his CABG he followed up with the burn crew member once in [place] and has not seen a burn crew member since then. Patient also endorses to drinking a six pack of beer at least 2-3 times a week. Patient ambulates with a four-wheel walker without difficulty. Denies any shortness of breath, orthopnea, PND or syncopal episodes. ED course In the ED initial blood pressure was 154/88, pulse 88, patient saturating on room air Labs are largely unremarkable other than hemoglobin 11.9, hematocrit 34.2, sodium 132, glucose 131, hemoglobin A1c 7.1, BNP 184, lipase 76 Urinalysis is negative for UTI Urine tox is negative except for ethanol alcohol level is 270 In the ED patient received 1 L of IV fluids, thiamine 100 mg, Zofran 4 mg IV push x 1, cefepime 2 g x 1, vancomycin x 1 PMH: hypertension, hyperlipidemia, [id number] type 2 diabetes, CAD status post CABG, HFrEF PSH:Multiple amputations of the lower extremity phalanges, CABG SH: Drinks alcohol 2-3 times weekly, denies tobacco or illicit drug use Allergies: NKDA Home Meds: Metformin 1000 mg twice daily, Januvia 100 mg, Jardiance 10mg , atorvastatin 40 mg, remainder of medications med rec is pending and patient is unsure of Review of Systems Review of Systems Systems Reviewed: All systems reviewed, normal except as documented Exam Vital Signs Temp Resp BP Pulse Ox O2 Del Method 99.1 F 17 147/91 H 97 Room Air 01/11/25 06:07 01/11/25 06:07 01/11/25 06:07 01/11/25 06:07 01/11/25 06:07 Narrative Exam GENERAL: A&Ox3 . Awake, Not in acute distress NEURO: no focal neurological deficits HEENT: Atraumatic, Normocephalic. mucous membranes moist. Eyes open, symmetrical, & clear HEART: Normal Heart Sounds, CABG scar noted on the sternum LUNGS: Clear to auscultation with no wheezing or crackles. ABDOMEN: soft, non-distended, non-tender, bowel sounds heard, no guarding or rebound tenderness SKIN: No Rash or ecchymoses EXTREMITIES: No edema, tenderness, able to move all 4 extremities, pedal pulses palpated, Left foot first digit amputation, right foot second and third digit amputation, diabetic foot ulcer noted on plantar surface on the left foot, image is below Results: Labs 01/10/25 23:29 01/10/25 23:29 Labs: Short CBC 01/10/25 Range/Units 23:29 WBC 6.6 (3.8-10.6) Thou/mm3 Hgb 11.9 L (13.5-16.0) g/dL Hct 34.2 L (41.0-53.0) % Plt Count 157 (140-440) Thou/mm3 BMP 01/10/25 23:29 Sodium 132 L Potassium 3.7 Chloride 98 Carbon Dioxide 25.5 BUN 7 L Creatinine 0.8 Glucose 131 H Calcium 9.2 Cardiac Enzymes 01/10/25 Range/Units 23:29 Total Creatine Kinase 107 (34-171) U/L Troponin I 0.030 (0.0-0.045) ng/mL Liver Function 01/10/25 Range/Units 23:29 Total Bilirubin 0.9 (0.3-1.2) mg/dL Direct Bilirubin 0.3 (0.0-0.3) mg/dL AST 30 (0-34) U/L ALT 7 L (10-49) U/L Alkaline Phosphatase 106 (46-116) U/L Albumin 4.2 (3.4-4.8) gm/dL Urine 01/11/25 Range/Units 00:02 Urine Color Colorless A (Lt Yel-Yel) Urine Clarity Clear (Clear/Hazy) Urine pH 6.5 (5.0-7.0) Ur Specific [place] 1.007 (1.001-1.035) Urine Protein Negative (Neg - Trace) Urine Glucose (UA) Negative (Negative) Quality Measures Quality Measures none Advance care planning discussed with:: patient Medications Home Medications and Allergies Home Medications ?Medication ?Instructions ?Recorded ?Confirmed ?Type amlodipine 2.5 mg tablet 2.5 mg PO QDAY 01/27/21 01/27/21 History atorvastatin 40 mg tablet 40 mg PO QDAY 01/27/21 01/27/21 History sitagliptin phosphate 100 mg 100 mg PO QDAY 01/27/21 01/27/21 History tablet (Januvia) Allergies Allergy/AdvReac Type Severity Reaction Status Date / Time No Known Allergies Allergy Verified 09/30/24 09:27 Visit Medications Acetaminophen (Acetaminophen 325 Mg Tablet) 650 mg PO Q6H PRN PRN Reason: Fever >100.3 Stop: 02/10/25 10:05 Aspirin (Aspirin Ec 81 Mg Tabec) 81 mg PO QDAY [facility] Stop: 02/10/25 10:14 Atorvastatin Calcium (Atorvastatin Calcium 20 Mg Tablet) 40 mg PO HS [facility] Stop: 02/10/25 20:59 Carvedilol (Carvedilol 3.125 Mg Tablet) 3.125 mg PO BIDWM EILENE Stop: 02/10/25 17:29 Dextrose (Dextrose 50%-Water Inj 50 Ml Syringe) 25 ml IV Q15MIN PRN PRN Reason: BG 50-70 responsive npo pt Stop: 02/10/25 10:10 Dextrose (Dextrose 50%-Water Inj 50 Ml Syringe) 50 ml IV Q15MIN PRN PRN Reason: BG <50 OR BG <70 & pt unresponsive Stop: 02/10/25 10:10 Glucagon (Glucagon Inj 1 Mg Vial) 1 mg IM Q15MIN PRN PRN Reason: BG <70, and no IV access Heparin Sodium (Porcine) (Heparin Sod Inj 5000 Unit/Ml Vial) 5,000 unit SC Q12HR EILEEN Stop: 01/25/25 10:14 Cefepime HCl 2 gm/ Sodium (Chloride) 50 mls @ 100 mls/hr IV Q8HR EILEEN Stop: 01/18/25 10:18 Vancomycin HCl (Vancomycin/Water 1gm Ivpb) 200 mls @ 120 mls/hr IV X1 ONE Stop: 01/11/25 12:09 Insulin Human Lispro (Insulin Lispro (Admelog) 1 Unit/0.01 Ml Unit) 0 unit SC AC EILEEN; Protocol Stop: 02/10/25 11:29 Losartan Potassium (Losartan Potassium 25 Mg Tablet) 25 mg PO QDAY EILEEN Stop: 02/10/25 10:14 Pharmacy Consult (Vancomycin Pharmacy To Dose 1 Each Each) 1 each IV QDAY PRN PRN Reason: CONSULT Stop: 02/10/25 10:29 Discontinued Medications Sodium Chloride (Ns) 1,000 mls @ 999 mls/hr IV .Q1H1M ONE Stop: 01/10/25 23:39 Last Infusion: 01/11/25 01:04 Dose: Infused Thiamine HCl 100 mg/ Sodium (Chloride) 101 mls @ 202 mls/hr IV X1 ONE Stop: 01/10/25 23:08 Last Infusion: 01/11/25 01:04 Dose: Infused Cefepime HCl 2 gm/ Sodium (Chloride) 50 mls @ 100 mls/hr IV X1 ONE Stop: 01/11/25 01:34 Last Infusion: 01/11/25 02:08 Dose: Infused Vancomycin HCl 2,000 mg/ (Sodium Chloride) 500 mls @ 150 mls/hr IV X1 ONE Stop: 01/11/25 05:19 Last Infusion: 01/11/25 06:50 Dose: Infused Ondansetron HCl (Ondansetron Inj 2 Mg/Ml Inj 2 Ml) 4 mg IVP X1 ONE; Protocol Stop: 01/10/25 22:40 Last Admin: 01/10/25 23:51 Dose: 4 mg Assessment & Plan Plan Mr. Paige is a 64-year-old male with past medical history significant for hypertension, hyperlipidemia, [id number] type 2 diabetes, CAD status post CABG, HFrEF with EF of 25% presented to the ED after his son noticed a an ulcer on the plantar surface of his left foot. Pt is admitted to the hospital for IV antibiotics and further evaluation by general surgery. #Osteomyelitis #Diabetic foot ulcer, left foot #Non-Insulin dependent type 2 Diabetes A1c 7.1 on 0 01/10/25, blood glucose on admission was 131 Patient's home medications include metformin 1000 mg twice daily, Januvia 100 mg p.o. 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 been follow architectural project captain and wound care X-ray of foot-osteomyelitis interphalangeal joint second digit and distal second metatarsal CT of left foot indicates osteomyelitis Plan: -Sliding scale insulin ordered -Blood cultures pending -Patient started cefepime 2 g every 8 hours and vancomycin 01/11- -General Surgery is consulted for further recommendations -Wound care is ordered #Dilated cardiomyopahy #HFrEF 25-30% #CAD s/p CABG Echo done on 08/01/24- Dilated cardiomyopahy with sever LV dysfunction LVEF 25-30%.RV appears normal with RVSP 30 mmHg. LA is mildly dilated. RA is mildly dilated. Mild mitral regurgitation. Mild TR -Currently Pt is not in acute CHF exacerbation and does not appear to be fluid overloaded. NO pitting edema, no crackles, no SOB, no orthpnea, BNP on admission 184 -EKG is sinus rhythm with no acute ST or T wave changes Plan: Resume home GDMT as able: Coreg, losartan (Will resume home Jardiance as BP permits), will add spironolactone as able if BP permits -Resumed home aspirin, atorvastatin -repeat echo -Keep K > 4 and Mg > 2 -Fluids restriction to 1500cc and strict In & outs #Primary hypertension #Hyperlipidemia - Resumed home atorvastatin and losartan #Alcohol use disorder Per history patient has alcohol use disorder and drinks beer 2-3 times weekly Urine tox on admission ethynol levels were 229 Plan: -Pt does not appear to be in withdrawal, will start CIWA protocol of there are any signs of withdrawal noted -Counseled pt on complete alcohol cessation especially due to his significant cardiac history Health Maintenance Disposition: telemetry for IV antibiotics and continuous monitoring as pt has significant cardiac history DVT Prophylaxis: Heparin 5000 units SC Q12 hrs GI Prophylaxis: Pantoprozol-40 IVP Qday Diet: Carbohydrate consistent Cardiac diet Lines: Peripheral lines Code status: Full Assessment and plan discussed with my attending physician Dr. Sanford Christina (PGY-2)- Internal medicine resident Attending Provider Attestation/Addendum I Vincent Christina MD reviewed the note and agree with the resident's assessment & plan with modifications/additions/exceptions as below. I have personally reviewed labs, imaging, home meds/prior records, examined the patient, formulated and discussed management plan with the IM team. A 64-year-old male with history of HTN, HLD, DM, CAD s/p CABG, HFrEF with EF of 25% presented to ED as his son noticed left big toe open draining wound. Patient reports that the wound is chronic likely started a few years ago and has been managed by podiatry and wound care team. On evaluation there is amputation site (old) open draining wound with black margins and purulence likely reaching to the bone underneath. MRI obtained did reveal osteomyelitis of tibia, fibula and second metatarsal. Will start empirically on antibiotics cefepime and vancomycin, obtain blood cultures, consult podiatry/surgery for evaluation of potential I&D/amputation. Resume aspirin, statin, Coreg, losartan in the setting of CAD and HFrEF. Patient appears clinically euvolemic, will hold on diuresis at this point.
[2025-01-11] MEDS: ASPIRIN EC 81 MG TABEC PO ×2 (10:43→10:44)
[2025-01-11] MEDS: LOSARTAN POTASSIUM 25 MG TABLET PO (10:43)
[2025-01-11] MEDS: HEPARIN SOD INJ 5000 UNIT/ML VIAL SC ×2 (10:44→20:31)
[2025-01-11] MEDS: VANCOMYCIN/WATER 1GM IVPB 200 ML IV (11:49)
--- NOTE | 2025-01-11 15:50 | ESCONSULT_ITS ---
RE: LUKASZHENRIQUE : 1960 DATE OF CONSULTATION: 01/11/2025 This patient is a 64-year-old male, who was seen because of an ulcer over the bottom of the left foot with osteomyelitis. The patient has had amputation of the great toe on the left foot, but he has got some medications applied over the ulcer on the base of the first toe, probably corresponding to the metatarsal head. My examination revealed no evidence of abscess that requires drainage. The patient has osteomyelitis of the second metatarsal and interphalangeal joint, for which he does not require an amputation. The toe is still viable and patient can be treated with IV antibiotics. As far as the wound at the bottom of the second toe, it can be treated by the wound care nurse. No surgical intervention is required. DT: 13:08:57 TT: 15:49:00 Ref: [id number] - TID: [id number]
[2025-01-11] MEDS: INSULIN LISPRO (AdmeLOG) 1 UNIT/0.01 ML UNIT SC (17:25)
[2025-01-11] MEDS: ATORVASTATIN CALCIUM 20 MG TABLET 40 MG PO (20:31)
[2025-01-11] MEDS: VANCOMYCIN/NS 750 MG IVPB 750 MG/150 ML BAG 120 MG IV (21:50)
[2025-01-12] VITALS (12 sets, daily range): BP systolic 114–157; BP diastolic 71–89; PULSE 60–93; RESP 13–97; TEMP 36.1–36.4; O2SAT 93–98
[2025-01-12] MEDS: CEFEPIME INJ 2 GM in SODIUM CHLORIDE 0.9% (Popper) 50 ML IV ×3 (05:09→21:10)
[2025-01-12 06:12] LABS: Basophils # (Auto) 0.0 Thou/mm3 (0.0-0.2); Basophils % (Auto) 1 % (0-2.5); Eosinophils # (Auto) 0.2 Thou/mm3 (0.0-0.5); Eosinophils % (Auto) 4 % (0-10); Hematocrit 37.2 % (41.0-53.0); Hemoglobin 12.2 g/dL (13.5-16.0); Immature Granulocytes Auto 0.01 Thou/mm3 (0.00-0.00); Lymphocytes # (Auto) 1.9 Thou/mm3 (1.0-4.8); Lymphocytes % (Auto) 33 % (10-50); Mean Corpuscular HGB Conc 32.8 g/dl (31.0-37.0); Mean Corpuscular Hemoglobin 30.7 pg (25.0-35.0); Mean Corpuscular Volume 94 fL (80-100); Monocytes # (Auto) 0.8 Thou/mm3 (0.0-0.8); Monocytes % (Auto) 13 % (0-12); Neutrophils # (Auto) 2.9 Thou/mm3 (1.8-7.7); Neutrophils % (Auto) 49 % (37-80); Nucleated Red Blood Cell # 0.00 Thou/mm3 (0.00-0.00); Nucleated Red Blood Cell % 0 /100 WBC (0); Platelet Count 152 Thou/mm3 (140-440); RDW Standard Deviation 48.7 fL (35.1-43.9); Red Blood Count 3.98 Miln/mm3 (4.50-5.90); White Blood Count 5.8 Thou/mm3 (3.8-10.6)
[2025-01-12 07:20] LABS: Glucose Estimated Average 157 mg/dL (80-131); Hemoglobin A1C 7.1 % Hgb (4.8-6.0)
[2025-01-12] MEDS: HEPARIN SOD INJ 5000 UNIT/ML VIAL SC ×2 (08:15→20:19)
[2025-01-12] MEDS: LOSARTAN POTASSIUM 25 MG TABLET PO (08:16)
--- NOTE | 2025-01-12 09:10 | PC.SS ---
Follow up note: On IV antibiotic. No surgical intervention at this time.
[2025-01-12 09:32] LABS: Albumin, Serum 3.9 gm/dL (3.4-4.8); Albumin/Globulin Ratio 1.4 (1.2-2.2); Alkaline Phosphatase 108 U/L (46-116); Anion Gap 11 (7-16); Aspartate Amino Transferase 31 U/L (0-34); BUN/Creatinine Ratio 19 Ratio (12-20); Bilirubin,Total 2.0 mg/dL (0.3-1.2); Blood Urea Nitrogen 13 mg/dL (9-23); Calcium 9.6 mg/dL (8.3-10.6); Calcium (Corrected) 9.7 mg/dL (8.5-10.1); Carbon Dioxide 27.0 mMol/L (20.0-31.0); Cardiac Risk Estimate 2.3 RATIO (4.0-6.7); Chloride 101 mMol/L (98-107); Cholesterol 190 mg/dL (132-200); Creatinine (Component) 0.7 mg/dL (0.6-1.3); Estimated Creatinine Clearance 91.5 mL/min (>60); Globulin 2.8 gm/dL (2.3-3.5); Glucose 126 mg/dL (74-106); HDL Cholesterol 83 mg/dL (40-60); LDL Cholesterol,Calculated 93 mg/dL (0-130); Magnesium 1.4 mg/dL (1.6-2.6); Osmolality,Calculated 279 (275-295); Phosphorous 3.0 mg/dL (2.4-5.1); Potassium 4.0 mMol/L (3.4-5.1); Sodium 139 mMol/L (136-145); Total Protein 6.7 gm/dL (5.7-8.2); Triglycerides 70 mg/dL (30-150); eGFR > 60 See Note
[2025-01-12] MEDS: VANCOMYCIN/NS 750 MG IVPB 750 MG/150 ML BAG 120 MG IV ×2 (09:37→22:26)
[2025-01-12 09:45] LABS: Alanine Aminotransferase 10 U/L (10-49)
--- NOTE | 2025-01-12 11:48 | ESPR_ITS ---
<Statement entered by Abril Christina MD - 01/12/25 15:44> Patient seen at bedside. CIWA has remained 0 currently patient is alert and oriented. Per surgery recommendation patient currently does not need surgical intervention will consult ID for further recommendations on IV antibiotics patient may likely need a PICC line for continued IV antibiotics for 6 to 8 weeks. For now we will continue cefepime and await further recommendations from ID. Patient's home GDMT is also resumed including Coreg, losartan, and Jardiance. If patient's blood pressure is able to tolerate will add spironolactone. Patient was seen and examined by me personally. I have directly supervised and reviewed documentation by the team resident and agree with its findings. ------- Plan of care was discussed with the attending, Dr. Sanford Christina, PGY-2 Documentation for date of: 01/12/25 Subjective Subjective Interval history: No acute event overnight. Patient was seen and examined at bedside. No acute complaint. Saturating well on room air Denies shortness of breath, chest pain, numbness and tingling in bilateral extremities. Labs were review. H&h normalizing to Hg 12.2 and Hct 37.2 Mg 1.4-repleted. HDL cholesterol 83. Urine culture and blood cultures still no growth after 24 hours. Plan to consult Infectious disease for IV antibiotics reccomendation for osteomyelitis Exam Vital Signs Temp Pulse Resp BP Pulse Ox O2 Del Method 96.9 F 93 18 157/89 H 98 Room Air 01/12/25 08:00 01/12/25 08:17 01/12/25 08:00 01/12/25 08:17 01/12/25 08:00 01/12/25 08:00 Narrative Exam GENERAL: A&Ox3 . Awake, Not in acute distress NEURO: no focal neurological deficits HEENT: Atraumatic, Normocephalic. mucous membranes moist. Eyes open, symmetrical, & clear HEART: Normal Heart Sounds, CABG scar noted on the sternum LUNGS: Clear to auscultation with no wheezing or crackles. ABDOMEN: soft, non-distended, non-tender, bowel sounds heard, no guarding or rebound tenderness SKIN: No Rash or ecchymoses EXTREMITIES: No edema, tenderness, able to move all 4 extremities, pedal pulses palpated, Left foot first digit amputation, right foot second and third digit amputation, diabetic foot ulcer noted on plantar surface on the left foot, image is below Objective Labs 01/12/25 04:45 01/12/25 04:45 Labs: Laboratory Results - last 24 hr 01/12/25 04:45 WBC 5.8 RBC 3.98 L Hgb 12.2 L Hct 37.2 L MCV 94 MCH 30.7 MCHC 32.8 RDW Std Deviation 48.7 H Plt Count 152 Neut % (Auto) 49 Lymph % (Auto) 33 [place] % (Auto) 13 H Eos % (Auto) 4 Baso % (Auto) 1 Neut # (Auto) 2.9 Lymph # (Auto) 1.9 [place] # (Auto) 0.8 Eos # (Auto) 0.2 Baso # (Auto) 0.0 Immature Gran # (Auto) 0.01 H Absolute Nucleated RBC 0.00 Immature Gran % 0 Nucleated RBC % 0 Sodium 139 Potassium 4.0 Chloride 101 Carbon Dioxide 27.0 Anion Gap 11 BUN 13 Creatinine 0.7 Estim Creat Clear Calc 91.5 eGFR > 60 BUN/Creatinine Ratio [address] Glu mg/dL 157 H Hemoglobin A1c 7.1 H Calculated Osmolality 279 Calcium 9.6 Corrected Calcium 9.7 Phosphorus 3.0 Magnesium 1.4 L Total Bilirubin 2.0 H D AST 31 ALT 10 Alkaline Phosphatase 108 Total Protein 6.7 Albumin 3.9 Globulin 2.8 Albumin/Globulin Ratio 1.4 Triglycerides 70 Cholesterol 190 LDL Cholesterol, Calc 93 HDL Cholesterol 83 H Cholesterol/HDL Ratio 2.3 L Quality Measures Quality Measures none Advance care planning discussed with:: patient Assessment & Plan Assessment Current Active Medications: Generic Name Dose Route Start Last Admin Trade Name Arnold PRN Reason Stop Dose Admin Acetaminophen 650 mg 01/11/25 10:06 Acetaminophen 325 Mg Tablet PO 02/10/25 10:05 Q6H PRN Fever >100.3 Aspirin 81 mg 01/11/25 10:15 01/11/25 10:44 Aspirin Ec 81 Mg Tabec PO 02/10/25 10:14 81 mg QDAY EILEEN Administration Atorvastatin Calcium 40 mg 01/11/25 21:00 01/11/25 20:31 Atorvastatin Calcium 20 Mg Tablet PO 02/10/25 20:59 40 mg HS EILEEN Administration Carvedilol 3.125 mg 01/11/25 17:30 01/12/25 08:17 Carvedilol 3.125 Mg Tablet PO 02/10/25 17:29 3.125 mg BIDWM EILEEN Administration Dextrose 25 ml 01/11/25 10:11 Dextrose 50%-Water Inj 50 Ml Syringe IV 02/10/25 10:10 Q15MIN PRN BG 50-70 responsive npo pt Dextrose 50 ml 01/11/25 10:11 Dextrose 50%-Water Inj 50 Ml Syringe IV 02/10/25 10:10 Q15MIN PRN BG <50 OR BG <70 & pt unresponsive Glucagon 1 mg 01/11/25 10:11 Glucagon Inj 1 Mg Vial IM Q15MIN PRN BG <70, and no IV access Heparin Sodium (Porcine) 5,000 unit 01/11/25 10:15 01/12/25 08:15 Heparin Sod Inj 5000 Unit/Ml Vial SC 01/25/25 10:14 5,000 unit Q12HR EILEEN Administration Cefepime HCl 2 gm/ Sodium 50 mls @ 100 mls/hr 01/11/25 10:19 01/12/25 05:09 Chloride IV 01/18/25 10:18 100 mls/hr Q8HR EILEEN Administration Vancomycin/Sodium Chloride 750 mg in 150 mls @ 120 mls/hr 01/11/25 22:00 01/12/25 09:37 Vancomycin/Ns 750 Mg Ivpb IV 01/18/25 21:59 120 mls/hr BID@1000,2200 EILEEN Administration Protocol Magnesium Sulfate 4 gm in 50 mls @ 12.5 mls/hr 01/12/25 11:44 Magnesium Sulfate Ivpb IV 01/12/25 15:43 X1 ONE Insulin Human Lispro 0 unit 01/11/25 11:30 01/12/25 08:17 Insulin Lispro (Admelog) 1 Unit/0.01 Ml Unit SC 02/10/25 11:29 Not Given AC EILEEN Protocol Losartan Potassium 25 mg 01/11/25 10:15 01/12/25 08:16 Losartan Potassium 25 Mg Tablet PO 02/10/25 10:14 25 mg QDAY EILEEN Administration Pantoprazole Sodium 40 mg 01/12/25 09:00 01/12/25 08:15 Pantoprazole Inj 40 Mg Vial IVP 02/11/25 08:59 40 mg QDAY EILEEN Administration Pharmacy Consult 1 each 01/11/25 10:30 Vancomycin Pharmacy To Dose 1 Each Each IV 02/10/25 10:29 QDAY PRN CONSULT Plan Mr. Paige is a 64-year-old male with past medical history significant for hypertension, hyperlipidemia, [id number] type 2 diabetes, CAD status post CABG, HFrEF with EF of 25% presented to the ED after his son noticed a an ulcer on the plantar surface of his left foot. Pt is admitted to the hospital for IV antibiotics and further evaluation by general surgery. #Osteomyelitis 2/2 #Diabetic foot ulcer, left foot #Non-Insulin dependent type 2 Diabetes A1c 7.1 on 0 01/10/25, blood glucose on admission was 131 Patient's home medications include metformin 1000 mg twice daily, Januvia 100 mg p.o. 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 X-ray of foot-osteomyelitis interphalangeal joint second digit and distal second metatarsal CT of left foot indicates osteomyelitis in distal chest tibia-fibula, distal 2nd metatarsal, midle and distal phalanges second digit Plan: -Sliding scale insulin ordered -Blood cultures - no growth in 24 hrs -Continue cefepime 2 g every 8 hours and vancomycin 01/11- -General Surgery is consulted for further recommendations -Wound care is ordered -Consult Infectious disease for IV recommendation #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 LA is mildly dilated. RA is mildly dilated. Mild mitral regurgitation. Mild TR pt underwent cardiac cath on 08/04/24 and reveal multi-vessel cardiovascular disease (99% stenosis left circumflex artery, total occlusion distal circumflex artery, 90% stenosis of proximal left anterior descending artery). Pt was transfer to [facility] and underwent CABG. -Currently Pt is not in acute CHF exacerbation and does not appear to be fluid overloaded. NO pitting edema, no crackles, no SOB, no orthpnea, BNP on admission 184 -EKG is sinus rhythm with no acute ST or T wave changes Plan: -Resumed home GDMT: Coreg, losartan, jardiance is started, will add spironolactone as able if BP permits -Continue home aspirin, atorvastatin -repeat echo, pending -Keep K > 4 and Mg > 2 -Fluids restriction to 1500cc and strict In & outs #Primary hypertension #Hyperlipidemia - Continue home atorvastatin and losartan #Alcohol use disorder Per history patient has alcohol use disorder and drinks beer 2-3 times weekly Urine tox on admission ethynol levels were 229 Plan: - CIWA as remained 0-1 -Pt does not appear to be in withdrawal, will continue to monitor for any signs of withdrawal noted -Counseled pt on complete alcohol cessation especially due to his significant cardiac history #L1 compression fracture Hx of moderate compression fracture L1 vertebral body as evident from previous CT scan in 01/27/2024. Health Maintenance Disposition: telemetry for IV antibiotics and continuous monitoring as pt has significant cardiac history DVT Prophylaxis: Heparin 5000 units SC Q12 hrs GI Prophylaxis: Pantoprozol-40 IVP Qday Diet: Carbohydrate consistent Cardiac diet Lines: Peripheral lines Code status: Full Patient seen and assessed under supervision of attending physician and discuss with senior resident Dr. Abril Christina PGY-2 Kenyatta Marie MD PGY-1, Internal Medicine Attending Provider Attestation/Addendum I Vincent Christina MD reviewed the note and agree with the resident's assessment & plan with modifications/additions/exceptions as below. I have personally reviewed labs, imaging, home meds/prior records, examined the patient, formulated and discussed management plan with the IM team. A 64-year-old male with history of HTN, HLD, DM, CAD s/p CABG, HFrEF with EF of 25% presented to ED as his son noticed left big toe open draining wound. Patient reports that the wound is chronic likely started a few years ago and has been managed by podiatry and wound care team. On evaluation there is amputation site (old) open draining wound with black margins and purulence likely reaching to the bone underneath. MRI obtained did reveal osteomyelitis of tibia, fibula and second metatarsal. Continue empiric therapy with cefepime and vancomycin, blood cultures pending. General surgery evaluated and recommended against I&D/amputation. Will get wound cultures additionally to guide antibiotic therapy. Consult ID and wound care. Resume aspirin, statin, Coreg, losartan in the setting of CAD and HFrEF. Patient appears clinically euvolemic, will hold on diuresis at this point.
[2025-01-12] MEDS: INSULIN LISPRO (AdmeLOG) 1 UNIT/0.01 ML UNIT SC (11:55)
[2025-01-12] MEDS: Magnesium Sulfate 4 GM Ivpb 4 GM/50 ML BAG IV (12:09)
--- NOTE | 2025-01-12 12:38 | PC.SS ---
SS met with patient regarding d/c plan. Pt is alert/oriented. Pt was admitted for Osteomylelitis Of The Left Foot. Pt confirmed demographic and contact information is correct on facesheet. Pt resides with and son. Pt ambulates utilizing a 4 wheel with seat, rollator walk which he has at bedside. Pt also has an electric wheelchair. Pt is ok with all ADLs. Pt named his son, Darrion Adhikari medical decision maker if he is unable. Patient?s choice is to return home upon d/c. Pt states he is diabetic, has glucometer, and test strips. Pt states he has been consuming beer for years and is able to stop on his own. Pt states he is aware how to control his drinking. Pt is he has attended AA meetings in the past. Pt refused community resources. Pt states he consumed 6 beers prior to being hospitalized. SS provided verbal d/c options for home or SNF. Patient's choice is to return home and son will provide transportation. Pt states he followed up with PCP 1 month ago. D/C plan: Return home Next of Kin: Darrion Adhikari, son, phone# [phone] PCP: [facility] Address: Correct on facesheet
--- NOTE | 2025-01-12 18:02 | PC.NURSE ---
Unable to do med rec. No family visited. attempted to call . No answer.
[2025-01-12] MEDS: ATORVASTATIN CALCIUM 20 MG TABLET 40 MG PO (20:19)
[2025-01-12 21:21] LABS: Misc Send Out* See Sep Rpt
[2025-01-12 21:38] LABS: Vancomycin,Trough 11.0 mcg/mL (5.0-10.0)
[2025-01-13] VITALS (11 sets, daily range): BP systolic 90–125; BP diastolic 55–84; PULSE 54–74; RESP 14–95; TEMP 36.1–36.6; O2SAT 94–97; BMI 26.9
[2025-01-13] MEDS: CEFEPIME INJ 2 GM in SODIUM CHLORIDE 0.9% (Popper) 50 ML IV ×3 (05:20→21:21)
[2025-01-13 05:42] LABS: Basophils # (Auto) 0.0 Thou/mm3 (0.0-0.2); Basophils % (Auto) 1 % (0-2.5); Eosinophils # (Auto) 0.4 Thou/mm3 (0.0-0.5); Eosinophils % (Auto) 6 % (0-10); Hematocrit 35.8 % (41.0-53.0); Hemoglobin 11.9 g/dL (13.5-16.0); Immature Granulocytes Auto 0.00 Thou/mm3 (0.00-0.00); Lymphocytes # (Auto) 2.0 Thou/mm3 (1.0-4.8); Lymphocytes % (Auto) 35 % (10-50); Mean Corpuscular HGB Conc 33.2 g/dl (31.0-37.0); Mean Corpuscular Hemoglobin 31.2 pg (25.0-35.0); Mean Corpuscular Volume 94 fL (80-100); Monocytes # (Auto) 0.7 Thou/mm3 (0.0-0.8); Monocytes % (Auto) 12 % (0-12); Neutrophils # (Auto) 2.7 Thou/mm3 (1.8-7.7); Neutrophils % (Auto) 46 % (37-80); Nucleated Red Blood Cell # 0.00 Thou/mm3 (0.00-0.00); Nucleated Red Blood Cell % 0 /100 WBC (0); Platelet Count 141 Thou/mm3 (140-440); RDW Standard Deviation 48.6 fL (35.1-43.9); Red Blood Count 3.81 Miln/mm3 (4.50-5.90); White Blood Count 5.7 Thou/mm3 (3.8-10.6)
[2025-01-13 06:11] LABS: Alanine Aminotransferase 10 U/L (10-49); Albumin, Serum 3.9 gm/dL (3.4-4.8); Albumin/Globulin Ratio 1.5 (1.2-2.2); Alkaline Phosphatase 101 U/L (46-116); Anion Gap 8 (7-16); Aspartate Amino Transferase 29 U/L (0-34); BUN/Creatinine Ratio 16 Ratio (12-20); Bilirubin,Total 1.8 mg/dL (0.3-1.2); Blood Urea Nitrogen 11 mg/dL (9-23); Calcium 9.3 mg/dL (8.3-10.6); Calcium (Corrected) 9.4 mg/dL (8.5-10.1); Carbon Dioxide 28.1 mMol/L (20.0-31.0); Chloride 102 mMol/L (98-107); Creatinine (Component) 0.7 mg/dL (0.6-1.3); Estimated Creatinine Clearance 91.5 mL/min (>60); Globulin 2.6 gm/dL (2.3-3.5); Glucose 146 mg/dL (74-106); Magnesium 1.5 mg/dL (1.6-2.6); Osmolality,Calculated 278 (275-295); Phosphorous 2.8 mg/dL (2.4-5.1); Potassium 4.2 mMol/L (3.4-5.1); Sodium 138 mMol/L (136-145); Total Protein 6.5 gm/dL (5.7-8.2); eGFR > 60 See Note
[2025-01-13] MEDS: INSULIN LISPRO (AdmeLOG) 1 UNIT/0.01 ML UNIT SC ×2 (07:39→11:33)
[2025-01-13] MEDS: ASPIRIN EC 81 MG TABEC PO (08:23)
[2025-01-13] MEDS: HEPARIN SOD INJ 5000 UNIT/ML VIAL SC ×2 (08:23→20:19)
[2025-01-13] MEDS: PANTOPRAZOLE 40 MG TABLET PO (08:23)
[2025-01-13] MEDS: LOSARTAN POTASSIUM 25 MG TABLET PO (08:23)
[2025-01-13] MEDS: Magnesium Sulfate 4 GM Ivpb 4 GM/50 ML BAG IV (09:25)
[2025-01-13] MEDS: VANCOMYCIN/WATER 1GM IVPB 200 ML IV ×2 (10:35→21:20)
--- NOTE | 2025-01-13 10:58 | ESPR_ITS ---
<Statement entered by Vincent Christina MD - 01/18/25 18:09> I Vincent Christina MD reviewed the note and agree with the resident's assessment & plan with modifications/additions/exceptions as below. I have personally reviewed labs, imaging, home meds/prior records, examined the patient, formulated and discussed management plan with the IM team. <Statement entered by Abril Christina MD - 01/14/25 08:02> Pt is seen at bedside, currently no plans for surgical intervention, will follow up with ID for further recommendations on antibiotics. Will order wound culture as well. Patient was seen and examined by me personally. I have directly supervised and reviewed documentation by the team resident and agree with its findings. ------- Plan of care was discussed with the attending, Dr. Sanford Christina, PGY-2 Documentation for date of: 01/13/25 Subjective Subjective Interval history: No acute events overnight. Patient was seen and examined at bedside. No active complains, denies shorteness of breath, chest pain, nausea and vomiting. AM labs reviewed. Mg repleted. Requested wound culture. Started the patient on wound healing regime, Vit C, Zinc sulfate and multivitamin Awaiting ID recoomdentios for IV antibiotics Held Coreg due to BP OF 96/55 and pulse of 56. Exam Vital Signs Temp Pulse Resp BP Pulse Ox O2 Del Method 97.0 F 61 19 108/70 96 Room Air 01/13/25 08:00 01/13/25 08:23 01/13/25 08:00 01/13/25 08:23 01/13/25 08:00 01/13/25 08:00 Narrative Exam GENERAL: A&Ox3 . Awake, Not in acute distress NEURO: no focal neurological deficits HEENT: Atraumatic, Normocephalic. mucous membranes moist. Eyes open, symmetrical, & clear HEART: Normal Heart Sounds, CABG scar noted on the sternum LUNGS: Clear to auscultation with no wheezing or crackles. ABDOMEN: soft, non-distended, non-tender, bowel sounds heard, no guarding or rebound tenderness SKIN: No Rash or ecchymoses EXTREMITIES: No edema, tenderness, able to move all 4 extremities, pedal pulses palpated, Left foot first digit amputation, right foot second and third digit amputation, diabetic foot ulcer noted on plantar surface on the left foot, image is below Objective Labs 01/13/25 04:52 01/13/25 04:52 Labs: Laboratory Results - last 24 hr 01/12/25 01/13/25 21:12 04:52 WBC 5.7 RBC 3.81 L Hgb 11.9 L Hct 35.8 L MCV 94 MCH 31.2 MCHC 33.2 RDW Std Deviation 48.6 H Plt Count 141 Neut % (Auto) 46 Lymph % (Auto) 35 [place] % (Auto) 12 Eos % (Auto) 6 Baso % (Auto) 1 Neut # (Auto) 2.7 Lymph # (Auto) 2.0 [place] # (Auto) 0.7 Eos # (Auto) 0.4 Baso # (Auto) 0.0 Immature Gran # (Auto) 0.00 Absolute Nucleated RBC 0.00 Immature Gran % 0 Nucleated RBC % 0 Sodium 138 Potassium 4.2 Chloride 102 Carbon Dioxide 28.1 Anion Gap 8 BUN 11 Creatinine 0.7 Estim Creat Clear Calc 91.5 eGFR > 60 BUN/Creatinine Ratio 16 Glucose 146 H Calculated Osmolality 278 Calcium 9.3 Corrected Calcium 9.4 Phosphorus 2.8 Magnesium 1.5 L Total Bilirubin 1.8 H AST 29 ALT 10 Alkaline Phosphatase 101 Total Protein 6.5 Albumin 3.9 Globulin 2.6 Albumin/Globulin Ratio 1.5 Vancomycin Trough 11.0 H Quality Measures Quality Measures none Advance care planning discussed with:: patient Assessment & Plan Assessment Current Active Medications: Generic Name Dose Route Start Last Admin Trade Name Freq PRN Reason Stop Dose Admin Acetaminophen 650 mg 01/11/25 10:06 Acetaminophen 325 Mg Tablet PO 02/10/25 10:05 Q6H PRN Fever >100.3 Aspirin 81 mg 01/11/25 10:15 01/13/25 08:23 Aspirin Ec 81 Mg Tabec PO 02/10/25 10:14 81 mg QDAY EILEEN Administration Atorvastatin Calcium 40 mg 01/11/25 21:00 01/12/25 20:19 Atorvastatin Calcium 20 Mg Tablet PO 02/10/25 20:59 40 mg HS EILEEN Administration Carvedilol 3.125 mg 01/11/25 17:30 01/13/25 08:22 Carvedilol 3.125 Mg Tablet PO 02/10/25 17:29 3.125 mg BIDWM EILEEN Administration Dextrose 25 ml 01/11/25 10:11 Dextrose 50%-Water Inj 50 Ml Syringe IV 02/10/25 10:10 Q15MIN PRN BG 50-70 responsive npo pt Dextrose 50 ml 01/11/25 10:11 Dextrose 50%-Water Inj 50 Ml Syringe IV 02/10/25 10:10 Q15MIN PRN BG <50 OR BG <70 & pt unresponsive Glucagon 1 mg 01/11/25 10:11 Glucagon Inj 1 Mg Vial IM Q15MIN PRN BG <70, and no IV access Heparin Sodium (Porcine) 5,000 unit 01/11/25 10:15 01/13/25 08:23 Heparin Sod Inj 5000 Unit/Ml Vial SC 01/25/25 10:14 5,000 unit Q12HR EILEEN Administration Cefepime HCl 2 gm/ Sodium 50 mls @ 100 mls/hr 01/11/25 10:19 01/13/25 05:20 Chloride IV 01/18/25 10:18 100 mls/hr Q8HR EILEEN Administration Vancomycin HCl 200 mls @ 120 mls/hr 01/13/25 10:00 01/13/25 10:35 Vancomycin/Water 1gm Ivpb IV 01/20/25 09:59 120 mls/hr Q12H EILEEN Administration Protocol Magnesium Sulfate 4 gm in 50 mls @ 12.5 mls/hr 01/13/25 08:32 01/13/25 09:25 Magnesium Sulfate Ivpb IV 01/13/25 12:31 12.5 mls/hr X1 ONE Administration Insulin Human Lispro 0 unit 01/11/25 11:30 01/13/25 07:39 Insulin Lispro (Admelog) 1 Unit/0.01 Ml Unit SC 02/10/25 11:29 2 unit AC EILEEN Administration Protocol Losartan Potassium 25 mg 01/11/25 10:15 01/13/25 08:23 Losartan Potassium 25 Mg Tablet PO 02/10/25 10:14 25 mg QDAY EILEEN Administration Non-Formulary Medication 10 mg 01/12/25 14:45 Empagliflozin [Jardiance] PO 02/11/25 14:44 QDAY EILEEN Pantoprazole Sodium 40 mg 01/13/25 09:00 01/13/25 08:23 Pantoprazole 40 Mg Tablet PO 02/11/25 08:59 40 mg QDAY EILEEN Administration Pharmacy Consult 1 each 01/11/25 10:30 Vancomycin Pharmacy To Dose 1 Each Each IV 02/10/25 10:29 QDAY PRN CONSULT Plan Plan Mr. Paige is a 64-year-old male with past medical history significant for hypertension, hyperlipidemia, [id number] type 2 diabetes, CAD status post CABG, HFrEF with EF of 25% presented to the ED after his son noticed a an ulcer on the plantar surface of his left foot. Pt is admitted to the hospital for osteomyelitis IV antibiotics management and further evaluation by general surgery. #Osteomyelitis 2/2 #Diabetic foot ulcer, left foot #Non-Insulin dependent type 2 Diabetes A1c 7.1 on 0 01/10/25, blood glucose on admission was 131 Patient's home medications include metformin 1000 mg twice daily, Januvia 100 mg p.o. 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 X-ray of foot-osteomyelitis interphalangeal joint second digit and distal second metatarsal CT of left foot indicates osteomyelitis in distal chest tibia-fibula, distal 2nd metatarsal, midle and distal phalanges second digit Plan: -Sliding scale insulin ordered -Blood cultures - no growth in 48 hrs -Continue cefepime 2 g every 8 hours and vancomycin 01/11- -General Surgery is consulted for further recommendations-no surgical intervention -Wound care is collected - Awaiting Infectious disease recommendation #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 LA is mildly dilated. RA is mildly dilated. Mild mitral regurgitation. Mild TR pt underwent cardiac cath on 08/04/24 and reveal multi-vessel cardiovascular disease (99% stenosis left circumflex artery, total occlusion distal circumflex artery, 90% stenosis of proximal left anterior descending artery). Pt was transfer to [facility] and underwent CABG. -Currently Pt is not in acute CHF exacerbation and does not appear to be fluid overloaded. NO pitting edema, no crackles, no SOB, no orthpnea, BNP on admission 184 -EKG is sinus rhythm with no acute ST or T wave changes - 01/13/25 Echo: Normal left ventricular size and function. Approximate ejection fraction is 50-55%. RV normal in size and function, LA and RA is mildly dilated. Plan: - Continue home GDMT: losartan, jardiance, will add spironolactone as able if BP permits - Held Coreg due to soft BP and bradycardia - Continue home aspirin, atorvastatin -Keep K > 4 and Mg > 2 -Fluids restriction to 1500cc and strict In & outs - Echo, done #Primary hypertension #Hyperlipidemia - Continue home atorvastatin and losartan #Alcohol use disorder Per history patient has alcohol use disorder and drinks beer 2-3 times weekly Urine tox on admission ethynol levels were 229 Plan: - CIWA as remained 0-1 -Pt does not appear to be in withdrawal, will continue to monitor for any signs of withdrawal noted -Counseled pt on complete alcohol cessation especially due to his significant cardiac history #L1 compression fracture Hx of moderate compression fracture L1 vertebral body as evident from previous CT scan in 01/27/2024. Health Maintenance Disposition: telemetry for IV antibiotics and continuous monitoring as pt has significant cardiac history DVT Prophylaxis: Heparin 5000 units SC Q12 hrs GI Prophylaxis: Pantoprozol-40 IVP Qday Diet: Carbohydrate consistent Cardiac diet Lines: Peripheral lines Code status: Full Patient seen and assessed under supervision of attending physician and discuss with senior resident Dr. Christina PGY-2 Kenyatta Marie MD PGY-1, Internal Medicinel
[2025-01-13] MEDS: JARDIANCE 10 MG PO (12:30)
[2025-01-13] MEDS: ASCORBIC ACID 250 MG TABLET 500 MG PO ×2 (13:06→20:20)
[2025-01-13] MEDS: MULTIVITAMINS TABLET 1 TAB PO (13:06)
[2025-01-13] MEDS: ZINC SULFATE 220 MG CAPSULE PO (13:06)
[2025-01-13] MEDS: ATORVASTATIN CALCIUM 20 MG TABLET 40 MG PO (20:20)
[2025-01-14] VITALS (11 sets, daily range): BP systolic 90–117; BP diastolic 59–69; PULSE 51–75; RESP 16–95; TEMP 36.1–36.7; O2SAT 95–97
[2025-01-14] MEDS: CEFEPIME INJ 2 GM in SODIUM CHLORIDE 0.9% (Popper) 50 ML IV ×2 (05:30→13:06)
[2025-01-14 06:03] LABS: Basophils # (Auto) 0.0 Thou/mm3 (0.0-0.2); Basophils % (Auto) 1 % (0-2.5); Eosinophils # (Auto) 0.3 Thou/mm3 (0.0-0.5); Eosinophils % (Auto) 5 % (0-10); Hematocrit 37.5 % (41.0-53.0); Hemoglobin 12.4 g/dL (13.5-16.0); Immature Granulocytes Auto 0.01 Thou/mm3 (0.00-0.00); Lymphocytes # (Auto) 2.2 Thou/mm3 (1.0-4.8); Lymphocytes % (Auto) 35 % (10-50); Mean Corpuscular HGB Conc 33.1 g/dl (31.0-37.0); Mean Corpuscular Hemoglobin 31.1 pg (25.0-35.0); Mean Corpuscular Volume 94 fL (80-100); Monocytes # (Auto) 0.7 Thou/mm3 (0.0-0.8); Monocytes % (Auto) 11 % (0-12); Neutrophils # (Auto) 3.1 Thou/mm3 (1.8-7.7); Neutrophils % (Auto) 49 % (37-80); Nucleated Red Blood Cell # 0.00 Thou/mm3 (0.00-0.00); Nucleated Red Blood Cell % 0 /100 WBC (0); Platelet Count 137 Thou/mm3 (140-440); RDW Standard Deviation 48.2 fL (35.1-43.9); Red Blood Count 3.99 Miln/mm3 (4.50-5.90); White Blood Count 6.2 Thou/mm3 (3.8-10.6)
[2025-01-14 06:41] LABS: Alanine Aminotransferase 14 U/L (10-49); Albumin, Serum 4.1 gm/dL (3.4-4.8); Albumin/Globulin Ratio 1.5 (1.2-2.2); Alkaline Phosphatase 108 U/L (46-116); Anion Gap 9 (7-16); Aspartate Amino Transferase 34 U/L (0-34); BUN/Creatinine Ratio 21 Ratio (12-20); Bilirubin,Total 1.7 mg/dL (0.3-1.2); Blood Urea Nitrogen 17 mg/dL (9-23); Calcium 9.7 mg/dL (8.3-10.6); Calcium (Corrected) 9.7 mg/dL (8.5-10.1); Carbon Dioxide 25.1 mMol/L (20.0-31.0); Chloride 103 mMol/L (98-107); Creatinine (Component) 0.8 mg/dL (0.6-1.3); Estimated Creatinine Clearance 84.5 mL/min (>60); Globulin 2.8 gm/dL (2.3-3.5); Glucose 118 mg/dL (74-106); Magnesium 2.1 mg/dL (1.6-2.6); Osmolality,Calculated 276 (275-295); Phosphorous 3.7 mg/dL (2.4-5.1); Potassium 4.2 mMol/L (3.4-5.1); Sodium 137 mMol/L (136-145); Total Protein 6.9 gm/dL (5.7-8.2); eGFR > 60 See Note
[2025-01-14] MEDS: ASCORBIC ACID 250 MG TABLET 500 MG PO ×2 (08:38→20:54)
[2025-01-14] MEDS: ZINC SULFATE 220 MG CAPSULE PO (08:38)
[2025-01-14] MEDS: MULTIVITAMINS TABLET 1 TAB PO (08:38)
[2025-01-14] MEDS: ASPIRIN EC 81 MG TABEC PO (08:39)
[2025-01-14] MEDS: LOSARTAN POTASSIUM 25 MG TABLET PO (08:39)
[2025-01-14] MEDS: JARDIANCE 10 MG PO (08:39)
[2025-01-14] MEDS: HEPARIN SOD INJ 5000 UNIT/ML VIAL SC (08:39)
[2025-01-14] MEDS: PANTOPRAZOLE 40 MG TABLET PO (08:39)
--- NOTE | 2025-01-14 09:33 | PC.SS ---
Follow up note: PICC line pending. Dr. Turner's recommendations are pending.
[2025-01-14] MEDS: VANCOMYCIN/WATER 1GM IVPB 200 ML IV ×2 (10:26→21:46)
--- NOTE | 2025-01-14 10:32 | PC.SS ---
SS met with pt to discuss d/c home with IV antibiotic. Patient's PCP is Dr. John Taylor from [facility] last visit was January 05, 2025 and next appointment is Feb 27, 2025 at 10:45am. Per pt, his son Darrion Baird can assist him. Pt is requesting to return home upon dc.
--- NOTE | 2025-01-14 11:55 | ESPR_ITS ---
<Statement entered by Abril Christina MD - 01/14/25 21:49> pt is seen at bedside. wound cultures pending, and BC are negative at 48 hrs. Will order ESR and CRP. Per ID recommendations, will order rocephin and doxycyclin for total 6 weeks therefore pt will need PICC line upon discharge. Will also continue wound care. As per surgery recommendations, there no need surgical intervention for now. pt's CIWA has remained 0. Patient was seen and examined by me personally. I have directly supervised and reviewed documentation by the team resident and agree with its findings. ------- Plan of care was discussed with the attending, Dr. Enmanuel Christina, PGY-2 Documentation for date of: 01/14/25 Subjective Subjective Interval history: No acute event overnight. Patient was seen and examined ad bedside. No acute complains. Saturating well on room air. Vitals are within normal limit, except for blood pressure are soft. AM labs reviewed. Significant for blood glucoce of 118. T.haley downtrend. Wound culture, pending Blood culture no growth at 48 hours. Requested PT Referral IR PICC lines tomorrow order INR tomorrow, Hold anticoagulation Tranfer to [employer]-tele Per ID, recommendation started Rocephin(01/14/25). Dr. Pettit ordered CRP, ESR and Hepatitis C antibody. Exam Vital Signs Temp Pulse Resp BP Pulse Ox O2 Del Method 97.6 F 75 20 90/59 L 95 Room Air 01/14/25 11:49 01/14/25 11:49 01/14/25 11:49 01/14/25 11:49 01/14/25 11:49 01/14/25 11:49 Narrative Exam GENERAL: A&Ox3 . Awake, Not in acute distress NEURO: no focal neurological deficits HEENT: Atraumatic, Normocephalic. mucous membranes moist. Eyes open, symmetrical, & clear HEART: Normal Heart Sounds, CABG scar noted on the sternum LUNGS: Clear to auscultation with no wheezing or crackles. ABDOMEN: soft, non-distended, non-tender, bowel sounds heard, no guarding or rebound tenderness SKIN: No Rash or ecchymoses EXTREMITIES: No edema, tenderness, able to move all 4 extremities, pedal pulses palpated, Left foot first digit amputation, right foot second and third digit amputation, diabetic foot ulcer noted on plantar surface on the left foot, image is below Objective Labs 01/14/25 05:05 01/14/25 05:35 Labs: Laboratory Results - last 24 hr 01/14/25 01/14/25 05:05 05:35 WBC 6.2 RBC 3.99 L Hgb 12.4 L Hct 37.5 L MCV 94 MCH 31.1 MCHC 33.1 RDW Std Deviation 48.2 H Plt Count 137 L Neut % (Auto) 49 Lymph % (Auto) 35 [place] % (Auto) 11 Eos % (Auto) 5 Baso % (Auto) 1 Neut # (Auto) 3.1 Lymph # (Auto) 2.2 [place] # (Auto) 0.7 Eos # (Auto) 0.3 Baso # (Auto) 0.0 Immature Gran # (Auto) 0.01 H Absolute Nucleated RBC 0.00 Immature Gran % 0 Nucleated RBC % 0 Sodium 137 Potassium 4.2 Chloride 103 Carbon Dioxide 25.1 Anion Gap 9 BUN 17 Creatinine 0.8 Estim Creat Clear Calc 84.5 eGFR > 60 BUN/Creatinine Ratio 21 H Glucose 118 H Calculated Osmolality 276 Calcium 9.7 Corrected Calcium 9.7 Phosphorus 3.7 Magnesium 2.1 Total Bilirubin 1.7 H AST 34 ALT 14 Alkaline Phosphatase 108 Total Protein 6.9 Albumin 4.1 Globulin 2.8 Albumin/Globulin Ratio 1.5 Quality Measures Quality Measures none Advance care planning discussed with:: patient Assessment & Plan Assessment Current Active Medications: Generic Name Dose Route Start Last Admin Trade Name Freq PRN Reason Stop Dose Admin Acetaminophen 650 mg 01/11/25 10:06 Acetaminophen 325 Mg Tablet PO 02/10/25 10:05 Q6H PRN Fever >100.3 Ascorbic Acid 500 mg 01/13/25 13:00 01/14/25 08:38 Ascorbic Acid 250 Mg Tablet PO 02/12/25 12:59 500 mg BID EILEEN Administration Aspirin 81 mg 01/11/25 10:15 01/14/25 08:39 Aspirin Ec 81 Mg Tabec PO 02/10/25 10:14 81 mg QDAY EILEEN Administration Atorvastatin Calcium 40 mg 01/11/25 21:00 01/13/25 20:20 Atorvastatin Calcium 20 Mg Tablet PO 02/10/25 20:59 40 mg HS EILEEN Administration Carvedilol 3.125 mg 01/11/25 17:30 01/13/25 17:00 Carvedilol 3.125 Mg Tablet PO 02/10/25 17:29 Not Given BIDWM EILEEN Jardiance ( 0 ea 01/13/25 11:15 01/14/25 08:39 Empagliflozin) 10 Mg PO 02/12/25 11:14 1 tablet Tablets QDAY EILEEN Administration Dextrose 25 ml 01/11/25 10:11 Dextrose 50%-Water Inj 50 Ml Syringe IV 02/10/25 10:10 Q15MIN PRN BG 50-70 responsive npo pt Dextrose 50 ml 01/11/25 10:11 Dextrose 50%-Water Inj 50 Ml Syringe IV 02/10/25 10:10 Q15MIN PRN BG <50 OR BG <70 & pt unresponsive Glucagon 1 mg 01/11/25 10:11 Glucagon Inj 1 Mg Vial IM Q15MIN PRN BG <70, and no IV access Heparin Sodium (Porcine) 5,000 unit 01/11/25 10:15 01/14/25 08:39 Heparin Sod Inj 5000 Unit/Ml Vial SC 01/25/25 10:14 5,000 unit Q12HR EILEEN Administration Cefepime HCl 2 gm/ Sodium 50 mls @ 100 mls/hr 01/11/25 10:19 01/14/25 05:30 Chloride IV 01/18/25 10:18 100 mls/hr Q8HR EILEEN Administration Vancomycin HCl 200 mls @ 120 mls/hr 01/13/25 10:00 01/14/25 10:26 Vancomycin/Water 1gm Ivpb IV 01/20/25 09:59 120 mls/hr Q12H EILEEN Administration Protocol Insulin Human Lispro 0 unit 01/11/25 11:30 01/14/25 11:16 Insulin Lispro (Admelog) 1 Unit/0.01 Ml Unit SC 02/10/25 11:29 Not Given AC [facility] Protocol Losartan Potassium 25 mg 01/11/25 10:15 01/14/25 08:39 Losartan Potassium 25 Mg Tablet PO 02/10/25 10:14 25 mg QDAY EILEEN Administration Multivitamins 1 tab 01/13/25 13:00 01/14/25 08:38 Multivitamins Tablet PO 02/12/25 12:59 1 tab QDAY EILEEN Administration Pantoprazole Sodium 40 mg 01/13/25 09:00 01/14/25 08:39 Pantoprazole 40 Mg Tablet PO 02/11/25 08:59 40 mg QDAY EILEEN Administration Pharmacy Consult 1 each 01/11/25 10:30 Vancomycin Pharmacy To Dose 1 Each Each IV 02/10/25 10:29 QDAY PRN CONSULT Zinc Sulfate 220 mg 01/13/25 13:00 01/14/25 08:38 Zinc Sulfate 220 Mg Capsule PO 01/27/25 12:59 220 mg QDAY EILEEN Administration Plan Mr. Paige is a 64-year-old male with past medical history significant for hypertension, hyperlipidemia, [id number] type 2 diabetes, CAD status post CABG, HFrEF with EF of 25% presented to the ED after his son noticed a an ulcer on the plantar surface of his left foot. Pt is admitted to the hospital for osteomyelitis IV antibiotics management and further evaluation by general surgery. #Osteomyelitis 2/2 #Diabetic foot ulcer, left foot #Non-Insulin dependent type 2 Diabetes A1c 7.1 on 0 01/10/25, blood glucose on admission was 131 Patient's home medications include metformin 1000 mg twice daily, Januvia 100 mg p.o. 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 Ordered CRP , ESR and Hepatitis C antibody. 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 LA is mildly dilated. RA is mildly dilated. Mild mitral regurgitation. Mild TR pt underwent cardiac cath on 08/04/24 and reveal multi-vessel cardiovascular disease (99% stenosis left circumflex artery, total occlusion distal circumflex artery, 90% stenosis of proximal left anterior descending artery). Pt was transfer to [facility] and underwent CABG. -Currently Pt is not in acute CHF exacerbation and does not appear to be fluid overloaded. NO pitting edema, no crackles, no SOB, no orthpnea, BNP on admission 184 -EKG is sinus rhythm with no acute ST or T wave changes - 01/13/25 Echo: Normal left ventricular size and function. Approximate ejection fraction is 50-55%. RV normal in size and function, LA and RA is mildly dilated. Plan: - Continue home GDMT: losartan, jardiance, will add spironolactone as able if BP permits - Continue to hold Coreg due to soft BP and bradycardia - Continue home aspirin, atorvastatin - Keep K > 4 and Mg > 2 - Fluids restriction to 1500cc - strict In & outs - Echo, done -[facility] #Primary hypertension #Hyperlipidemia - Continue home atorvastatin and losartan #Alcohol use disorder Per history patient has alcohol use disorder and drinks beer 2-3 times weekly Urine tox on admission ethynol levels were 229 Plan: - CIWA as remained 0-1 - Pt does not appear to be in withdrawal, will continue to monitor for any signs of withdrawal noted -Counseled patient on complete alcohol cessation especially due to his significant cardiac history #L1 compression fracture Hx of moderate compression fracture L1 vertebral body as evident from previous CT scan in 01/27/2024. Health Maintenance Disposition: med-tele for IV antibiotics and continuous monitoring as pt has significant cardiac history DVT Prophylaxis: Heparin 5000 units SC Q12 hrs-held GI Prophylaxis: Pantoprozol-40 IVP Qday Diet: Carbohydrate consistent Cardiac diet Lines: Peripheral lines Code status: Full Patient seen and assessed under supervision of attending physician and discuss with senior resident Dr. Christina PGY-2 Kenyatta Marie MD PGY-1, Internal Medicine Attending Provider Attestation/Addendum I attest that I was physically present for the evaluation, physical examination, lab and imaging review of the patient with the residents. I discussed the case with the residents and agree with the findings and plans of care as documented above. At bedside today, patient is states he is feeling well and denies any new complaints. Pain has been well-controlled, continues to ulcer on his left foot, foul-smelling. General surgery following, recommended medical management at this time. Infectious disease following, switched antibiotic to Rocephin and vancomycin. Also recommended to continue IV antibiotic therapy for total of 6 weeks. Blood culture has been negative for more than 48 hours. Echocardiography was negative for any vegetations. We will obtain physical therapy, plan for PICC line tomorrow Mynor Singer MD
--- NOTE | 2025-01-14 14:00 | PD.IDPROG ---
Subjective Subjective Interval history: asked to see for osteo of L foot. hx noted. serbian primarily cx neg so far. gram stain of swab wound cx noted. may be misleading imaging noted. Exam Vital Signs Temp Pulse Resp BP Pulse Ox O2 Del Method 97.6 F 51 L 20 90/59 L 95 Room Air 01/14/25 11:49 01/14/25 12:00 01/14/25 11:49 01/14/25 11:49 01/14/25 11:49 01/14/25 11:49 Narrative Exam dried L foot ulcer noted with surrounding gangrene noted. not that healthy looking. arterial scan 6 mo ago neg though and no surgery planned. that is ok. note that abx do not heal wounds. they only kill germs. please do not do swab cx again. they are usually misleading. Objective - Internal Medicine Labs 01/14/25 05:05 01/14/25 05:35 Labs: Laboratory Results - last 24 hr 01/14/25 01/14/25 05:05 05:35 WBC 6.2 RBC 3.99 L Hgb 12.4 L Hct 37.5 L MCV 94 MCH 31.1 MCHC 33.1 RDW Std Deviation 48.2 H Plt Count 137 L Neut % (Auto) 49 Lymph % (Auto) 35 [place] % (Auto) 11 Eos % (Auto) 5 Baso % (Auto) 1 Neut # (Auto) 3.1 Lymph # (Auto) 2.2 [place] # (Auto) 0.7 Eos # (Auto) 0.3 Baso # (Auto) 0.0 Immature Gran # (Auto) 0.01 H Absolute Nucleated RBC 0.00 Immature Gran % 0 Nucleated RBC % 0 Sodium 137 Potassium 4.2 Chloride 103 Carbon Dioxide 25.1 Anion Gap 9 BUN 17 Creatinine 0.8 Estim Creat Clear Calc 84.5 eGFR > 60 BUN/Creatinine Ratio 21 H Glucose 118 H Calculated Osmolality 276 Calcium 9.7 Corrected Calcium 9.7 Phosphorus 3.7 Magnesium 2.1 Total Bilirubin 1.7 H AST 34 ALT 14 Alkaline Phosphatase 108 Total Protein 6.9 Albumin 4.1 Globulin 2.8 Albumin/Globulin Ratio 1.5 Assessment & Plan A&P Narrative osteo of L foot by x ray. no other studies noted dm II, a1c 7.1 noted prior amputation of L great toe. 2020 6 weeks rocephin and doxy from admit if bc remain neg but note that this only kills germs and will not heal a wound. ongoing wound care essential will check superficially again on sunday Time Spent With Patient Time: Total time spent is greater than 50% in coordination of care (as documented) at patient's floor/unit and/or counseling patient:
--- NOTE | 2025-01-14 18:12 | PC.PT ---
PT eval only. Patient is I with transfers and ambulation with RW.
[2025-01-14] MEDS: ATORVASTATIN CALCIUM 20 MG TABLET 40 MG PO (20:54)
[2025-01-14] MEDS: cefTRIAXone/D5w 2gm 2 GM/50 ML BAG IV (20:54)
[2025-01-14 21:36] LABS: Vancomycin,Trough 17.0 mcg/mL (5.0-10.0)
[2025-01-15] VITALS (11 sets, daily range): BP systolic 96–121; BP diastolic 55–77; PULSE 55–67; RESP 14–97; TEMP 36.1–37.2; O2SAT 95–99
[2025-01-15 05:49] LABS: Basophils # (Auto) 0.1 Thou/mm3 (0.0-0.2); Basophils % (Auto) 1 % (0-2.5); Eosinophils # (Auto) 0.3 Thou/mm3 (0.0-0.5); Eosinophils % (Auto) 4 % (0-10); Hematocrit 36.5 % (41.0-53.0); Hemoglobin 12.1 g/dL (13.5-16.0); Immature Granulocytes Auto 0.02 Thou/mm3 (0.00-0.00); Lymphocytes # (Auto) 2.2 Thou/mm3 (1.0-4.8); Lymphocytes % (Auto) 35 % (10-50); Mean Corpuscular HGB Conc 33.2 g/dl (31.0-37.0); Mean Corpuscular Hemoglobin 31.3 pg (25.0-35.0); Mean Corpuscular Volume 94 fL (80-100); Monocytes # (Auto) 0.7 Thou/mm3 (0.0-0.8); Monocytes % (Auto) 11 % (0-12); Neutrophils # (Auto) 3.1 Thou/mm3 (1.8-7.7); Neutrophils % (Auto) 49 % (37-80); Nucleated Red Blood Cell # 0.00 Thou/mm3 (0.00-0.00); Nucleated Red Blood Cell % 0 /100 WBC (0); Platelet Count 126 Thou/mm3 (140-440); RDW Standard Deviation 48.8 fL (35.1-43.9); Red Blood Count 3.87 Miln/mm3 (4.50-5.90); White Blood Count 6.4 Thou/mm3 (3.8-10.6)
[2025-01-15 06:02] LABS: INR 1.1 (0.9-1.3); Prothrombin Time 12.0 Seconds (9.0-12.2)
[2025-01-15 06:09] LABS: Alanine Aminotransferase 15 U/L (10-49); Albumin, Serum 4.0 gm/dL (3.4-4.8); Albumin/Globulin Ratio 1.4 (1.2-2.2); Alkaline Phosphatase 102 U/L (46-116); Anion Gap 9 (7-16); Aspartate Amino Transferase 33 U/L (0-34); BUN/Creatinine Ratio 20 Ratio (12-20); Bilirubin,Total 1.1 mg/dL (0.3-1.2); Blood Urea Nitrogen 18 mg/dL (9-23); C-Reactive Protein < 0.5 mg/dL (0.0-0.9); Calcium 9.5 mg/dL (8.3-10.6); Calcium (Corrected) 9.5 mg/dL (8.5-10.1); Carbon Dioxide 26.8 mMol/L (20.0-31.0); Chloride 102 mMol/L (98-107); Creatinine (Component) 0.9 mg/dL (0.6-1.3); Estimated Creatinine Clearance 75.1 mL/min (>60); Globulin 2.8 gm/dL (2.3-3.5); Glucose 122 mg/dL (74-106); Magnesium 2.0 mg/dL (1.6-2.6); Osmolality,Calculated 278 (275-295); Phosphorous 4.0 mg/dL (2.4-5.1); Potassium 4.0 mMol/L (3.4-5.1); Sodium 138 mMol/L (136-145); Total Protein 6.8 gm/dL (5.7-8.2); eGFR > 60 See Note
[2025-01-15 06:42] LABS: Sed Rate (ESR) 23 mm/hr (0-20)
[2025-01-15 06:50] LABS: Hepatitis C Antibody Non Reactive (Non React)
[2025-01-15] MEDS: ZINC SULFATE 220 MG CAPSULE PO (08:36)
[2025-01-15] MEDS: LOSARTAN POTASSIUM 25 MG TABLET PO (08:36)
[2025-01-15] MEDS: MULTIVITAMINS TABLET 1 TAB PO (08:36)
[2025-01-15] MEDS: ASCORBIC ACID 250 MG TABLET 500 MG PO ×2 (08:36→20:25)
[2025-01-15] MEDS: PANTOPRAZOLE 40 MG TABLET PO (08:36)
[2025-01-15] MEDS: ASPIRIN EC 81 MG TABEC PO (08:36)
[2025-01-15] MEDS: JARDIANCE 10 MG PO (08:37)
--- NOTE | 2025-01-15 10:09 | ESPR_ITS ---
<Statement entered by Abril Christina MD - 01/15/25 22:50> Pt is seen at bedside, pending PICC line for IV antibiotics. Patient was seen and examined by me personally. I have directly supervised and reviewed documentation by the team resident and agree with its findings. ------- Plan of care was discussed with the attending, Dr. Enmanuel Christina, PGY-2 Documentation for date of: 01/15/25 Subjective Subjective Interval history: No acute event overnight. Patient was seen and examined at bedside, no acute complain. AM labs reviewed. Vitals within normal limit. Patient saturating well on room air Left toe wound culture grew gram Negative sagar. Pending PICC placement. Exam Vital Signs Temp Pulse Resp BP Pulse Ox O2 Del Method 97.1 F 55 L 14 96/61 97 Room Air 01/15/25 08:00 01/15/25 08:36 01/15/25 08:00 01/15/25 08:36 01/15/25 08:00 01/15/25 08:00 Narrative Exam GENERAL: A&Ox3 . Awake, Not in acute distress NEURO: no focal neurological deficits HEENT: Atraumatic, Normocephalic. mucous membranes moist. Eyes open, symmetrical, & clear HEART: Normal Heart Sounds, CABG scar noted on the sternum LUNGS: Clear to auscultation with no wheezing or crackles. ABDOMEN: soft, non-distended, non-tender, bowel sounds heard, no guarding or rebound tenderness SKIN: No Rash or ecchymoses EXTREMITIES: No edema, tenderness, able to move all 4 extremities, pedal pulses palpated, Left foot first digit amputation, right foot second and third digit amputation, diabetic foot ulcer noted on plantar surface on the left foot Objective Labs 01/16/25 05:40 01/16/25 05:40 Labs: Laboratory Results - last 24 hr 01/14/25 01/15/25 21:06 04:30 WBC 6.4 RBC 3.87 L Hgb 12.1 L Hct 36.5 L MCV 94 MCH 31.3 MCHC 33.2 RDW Std Deviation 48.8 H Plt Count 126 L Neut % (Auto) 49 Lymph % (Auto) 35 [place] % (Auto) 11 Eos % (Auto) 4 Baso % (Auto) 1 Neut # (Auto) 3.1 Lymph # (Auto) 2.2 [place] # (Auto) 0.7 Eos # (Auto) 0.3 Baso # (Auto) 0.1 Immature Gran # (Auto) 0.02 H Absolute Nucleated RBC 0.00 Immature Gran % 0 Nucleated RBC % 0 ESR 23 H PT 12.0 INR 1.1 Sodium 138 Potassium 4.0 Chloride 102 Carbon Dioxide 26.8 Anion Gap 9 BUN 18 Creatinine 0.9 Estim Creat Clear Calc 75.1 eGFR > 60 BUN/Creatinine Ratio 20 Glucose 122 H Calculated Osmolality 278 Calcium 9.5 Corrected Calcium 9.5 Phosphorus 4.0 Magnesium 2.0 Total Bilirubin 1.1 D AST 33 ALT 15 Alkaline Phosphatase 102 C-Reactive Prot, Quant < 0.5 Total Protein 6.8 Albumin 4.0 Globulin 2.8 Albumin/Globulin Ratio 1.4 Vancomycin Trough 17.0 H Hepatitis C Antibody Non Reactive Quality Measures Quality Measures none Advance care planning discussed with:: patient Assessment & Plan Assessment Current Active Medications: Generic Name Dose Route Start Last Admin Trade Name Freq PRN Reason Stop Dose Admin Acetaminophen 650 mg 01/11/25 10:06 Acetaminophen 325 Mg Tablet PO 02/10/25 10:05 Q6H PRN Fever >100.3 Ascorbic Acid 500 mg 01/13/25 13:00 01/15/25 08:36 Ascorbic Acid 250 Mg Tablet PO 02/12/25 12:59 500 mg BID EILEEN Administration Aspirin 81 mg 01/11/25 10:15 01/15/25 08:36 Aspirin Ec 81 Mg Tabec PO 02/10/25 10:14 81 mg QDAY EILEEN Administration Atorvastatin Calcium 40 mg 01/11/25 21:00 01/14/25 20:54 Atorvastatin Calcium 20 Mg Tablet PO 02/10/25 20:59 40 mg HS EILEEN Administration Carvedilol 3.125 mg 01/11/25 17:30 01/13/25 17:00 Carvedilol 3.125 Mg Tablet PO 02/10/25 17:29 Not Given BIDWM EILEEN Jardiance ( 0 ea 01/13/25 11:15 01/15/25 08:37 Empagliflozin) 10 Mg PO 02/12/25 11:14 1 tablet Tablets QDAY EILEEN Administration Dextrose 25 ml 01/11/25 10:11 Dextrose 50%-Water Inj 50 Ml Syringe IV 02/10/25 10:10 Q15MIN PRN BG 50-70 responsive npo pt Dextrose 50 ml 01/11/25 10:11 Dextrose 50%-Water Inj 50 Ml Syringe IV 02/10/25 10:10 Q15MIN PRN BG <50 OR BG <70 & pt unresponsive Glucagon 1 mg 01/11/25 10:11 Glucagon Inj 1 Mg Vial IM Q15MIN PRN BG <70, and no IV access Heparin Sodium (Porcine) 5,000 unit 01/11/25 10:15 01/14/25 08:39 Heparin Sod Inj 5000 Unit/Ml Vial SC 01/25/25 10:14 5,000 unit Q12HR EILEEN Administration Vancomycin HCl 200 mls @ 120 mls/hr 01/13/25 10:00 01/14/25 23:27 Vancomycin/Water 1gm Ivpb IV 01/20/25 09:59 Infused Q12H EILEEN Infusion Protocol Ceftriaxone Sodium/Dextrose 2 gm in 50 mls @ 100 mls/hr 01/14/25 21:00 01/14/25 21:24 Rocephin/D5w 2gm IV 01/21/25 20:59 Infused 2100 EILEEN Infusion Insulin Human Lispro 0 unit 01/11/25 11:30 01/15/25 07:45 Insulin Lispro (Admelog) 1 Unit/0.01 Ml Unit SC 02/10/25 11:29 Not Given AC EILEEN Protocol Losartan Potassium 25 mg 01/11/25 10:15 01/15/25 08:36 Losartan Potassium 25 Mg Tablet PO 02/10/25 10:14 25 mg QDAY EILEEN Administration Multivitamins 1 tab 01/13/25 13:00 01/15/25 08:36 Multivitamins Tablet PO 02/12/25 12:59 1 tab QDAY EILEEN Administration Pantoprazole Sodium 40 mg 01/13/25 09:00 01/15/25 08:36 Pantoprazole 40 Mg Tablet PO 02/11/25 08:59 40 mg QDAY EILEEN Administration Pharmacy Consult 1 each 01/11/25 10:30 Vancomycin Pharmacy To Dose 1 Each Each IV 02/10/25 10:29 QDAY PRN CONSULT Zinc Sulfate 220 mg 01/13/25 13:00 01/15/25 08:36 Zinc Sulfate 220 Mg Capsule PO 01/27/25 12:59 220 mg QDAY EILEEN Administration Plan Mr. Paige is a 64-year-old male with past medical history significant for hypertension, hyperlipidemia, [id number] type 2 diabetes, CAD status post CABG, HFrEF with EF of 25% presented to the ED after his son noticed a an ulcer on the plantar surface of his left foot. Pt is admitted to the hospital for osteomyelitis IV antibiotics management and further evaluation by general surgery. #Osteomyelitis 2/2 #Diabetic foot ulcer, left foot #Non-Insulin dependent type 2 Diabetes A1c 7.1 on 0 01/10/25, blood glucose on admission was 131 Patient's home medications include metformin 1000 mg twice daily, Januvia 100 mg p.o. 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 Per ID rec: Discontinue cefepime (01/11/25-01/14/25) Plan: - Continue Sliding scale insulin - Blood cultures - no growth in 48 hrs - Continue vancomycin 01/11- - General Surgery is consulted for further recommendations-no surgical intervention - Wound care is collected - Infectious disease recommendation-continue Rocephin(01/14/25)- Ordered CRP , ESR and Hepatitis C antibody. 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 LA is mildly dilated. RA is mildly dilated. Mild mitral regurgitation. Mild TR pt underwent cardiac cath on 08/04/24 and reveal multi-vessel cardiovascular disease (99% stenosis left circumflex artery, total occlusion distal circumflex artery, 90% stenosis of proximal left anterior descending artery). Pt was transfer to [facility] and underwent CABG. -Currently Pt is not in acute CHF exacerbation and does not appear to be fluid overloaded. NO pitting edema, no crackles, no SOB, no orthpnea, BNP on admission 184 -EKG is sinus rhythm with no acute ST or T wave changes - 01/13/25 Echo: Normal left ventricular size and function. Approximate ejection fraction is 50-55%. RV normal in size and function, LA and RA is mildly dilated. Plan: - Continue home GDMT: losartan, jardiance, will add spironolactone as able if BP permits - Continue to hold Coreg due to soft BP and bradycardia - Continue home aspirin, atorvastatin - Keep K > 4 and Mg > 2 - Fluids restriction to 1500cc - strict In & outs - Echo, done - Transfered to med-tele #Primary hypertension #Hyperlipidemia - Continue home atorvastatin and losartan #Alcohol use disorder Per history patient has alcohol use disorder and drinks beer 2-3 times weekly Urine tox on admission ethynol levels were 229 Plan: - CIWA as remained 0-1 - Pt does not appear to be in withdrawal, will continue to monitor for any signs of withdrawal noted -Counseled patient on complete alcohol cessation especially due to his significant cardiac history #L1 compression fracture Hx of moderate compression fracture L1 vertebral body as evident from previous CT scan in 01/27/2024. Health Maintenance Disposition: med-tele for IV antibiotics and continuous monitoring as pt has significant cardiac history DVT Prophylaxis: Heparin 5000 units SC Q12 hrs-held GI Prophylaxis: Pantoprozol-40 IVP Qday Diet: Carbohydrate consistent Cardiac diet Lines: Peripheral lines Code status: Full Patient seen and assessed under supervision of attending physician and discuss with senior resident Dr. Christina PGY-2 Kenyatta Marie MD PGY-1, Internal Medicine Attending Provider Attestation/Addendum I attest that I was physically present for the evaluation, physical examination, lab and imaging review of the patient with the residents. I discussed the case with the residents and agree with the findings and plans of care as documented above. Mynor Singer MD
[2025-01-15] MEDS: VANCOMYCIN/WATER 1GM IVPB 200 ML IV ×2 (10:35→21:30)
[2025-01-15] MEDS: cefTRIAXone/D5w 2gm 2 GM/50 ML BAG IV (20:25)
[2025-01-15] MEDS: HEPARIN SOD INJ 5000 UNIT/ML VIAL SC (20:25)
[2025-01-15] MEDS: ATORVASTATIN CALCIUM 20 MG TABLET 40 MG PO (20:25)
[2025-01-16] VITALS (10 sets, daily range): BP systolic 92–137; BP diastolic 62–81; PULSE 54–82; RESP 14–22; TEMP 36.1–36.6; O2SAT 95–99
--- NOTE | 2025-01-16 | XR_ITS ---
Examination: Ultrasound-guided needle placement right brachial vein. Dual-lumen central line placement (PICC line). Fluoroscopy AP chest, portable, 2 views Exam date and time:January 16, 2025 0949 hours INDICATIONS: Need for long-term intravenous antibiotic therapy for osteomyelitis left foot A timeout was completed verifying correct patient, procedure, site, positioning Informed consent provided Technique: The patient's site was prepped and draped in sterile fashion. Maximum Sterile Barrier Technique used including cap, mask, sterile gown, sterile gloves, and sterile full body drape. If ultrasound technique used: sterile gel and sterile probe covers. Hand Hygiene performed using proper scrub, soap and water, or alcohol-based hand rub. Site right portable apparatus utilized to confirm patency of the right brachial vein Utilizing ultrasonographic guidance successful 21-gauge needle puncture into the right brachial vein Ultrasound images recorded and stored. 5 cc 1% lidocaine administered for local anesthetic. Successful micropuncture with a 21-gauge needle is performed. 0.18 wire guide is then introduced into the SVC under fluoroscopic guidance. Dual-lumen catheter dilator is then introduced, followed by the catheter in the SVC and proper position under fluoroscopic guidance. Successful aspiration of blood and flushing with heparinized saline is then performed in the 2 venous limbs. The catheter sutured in place. Findings: Under fluoroscopy, the tip of the catheter is in good position in the vena cava. Portable chest x-ray, post line placement is ordered. Estimated blood loss 3 cc The patient tolerated the procedure well and was in stable and satisfactory condition at completion of the procedure Impression: Successful ultrasound-guided needle placement right brachial vein Successful placement of dual lumen central line, percutaneous Fluoroscopy 0.8 minute radiation dose 2.61 milligray 2 spot fluoroscopic chest films. AP chest completion procedure demonstrates satisfactory position central line. May use central line.
[2025-01-16 06:12] LABS: Basophils # (Auto) 0.1 Thou/mm3 (0.0-0.2); Basophils % (Auto) 1 % (0-2.5); Eosinophils # (Auto) 0.2 Thou/mm3 (0.0-0.5); Eosinophils % (Auto) 3 % (0-10); Hematocrit 36.3 % (41.0-53.0); Hemoglobin 12.1 g/dL (13.5-16.0); Immature Granulocytes Auto 0.02 Thou/mm3 (0.00-0.00); Lymphocytes # (Auto) 2.3 Thou/mm3 (1.0-4.8); Lymphocytes % (Auto) 33 % (10-50); Mean Corpuscular HGB Conc 33.3 g/dl (31.0-37.0); Mean Corpuscular Hemoglobin 31.4 pg (25.0-35.0); Mean Corpuscular Volume 94 fL (80-100); Monocytes # (Auto) 0.7 Thou/mm3 (0.0-0.8); Monocytes % (Auto) 10 % (0-12); Neutrophils # (Auto) 3.7 Thou/mm3 (1.8-7.7); Neutrophils % (Auto) 53 % (37-80); Nucleated Red Blood Cell # 0.00 Thou/mm3 (0.00-0.00); Nucleated Red Blood Cell % 0 /100 WBC (0); Platelet Count 128 Thou/mm3 (140-440); RDW Standard Deviation 48.2 fL (35.1-43.9); Red Blood Count 3.85 Miln/mm3 (4.50-5.90); White Blood Count 7.0 Thou/mm3 (3.8-10.6)
[2025-01-16 07:01] LABS: Alanine Aminotransferase 16 U/L (10-49); Albumin, Serum 4.2 gm/dL (3.4-4.8); Albumin/Globulin Ratio 1.3 (1.2-2.2); Alkaline Phosphatase 105 U/L (46-116); Anion Gap 12 (7-16); Aspartate Amino Transferase 27 U/L (0-34); BUN/Creatinine Ratio 17 Ratio (12-20); Bilirubin,Total 0.9 mg/dL (0.3-1.2); Blood Urea Nitrogen 15 mg/dL (9-23); Calcium 9.6 mg/dL (8.3-10.6); Calcium (Corrected) 9.6 mg/dL (8.5-10.1); Carbon Dioxide 22.7 mMol/L (20.0-31.0); Chloride 102 mMol/L (98-107); Creatinine (Component) 0.9 mg/dL (0.6-1.3); Estimated Creatinine Clearance 75.1 mL/min (>60); Globulin 3.2 gm/dL (2.3-3.5); Glucose 118 mg/dL (74-106); Magnesium 1.9 mg/dL (1.6-2.6); Osmolality,Calculated 275 (275-295); Phosphorous 3.8 mg/dL (2.4-5.1); Potassium 4.0 mMol/L (3.4-5.1); Sodium 137 mMol/L (136-145); Total Protein 7.4 gm/dL (5.7-8.2); eGFR > 60 See Note
[2025-01-16] MEDS: ASCORBIC ACID 250 MG TABLET 500 MG PO (08:26)
[2025-01-16] MEDS: JARDIANCE 10 MG PO (08:26)
[2025-01-16] MEDS: PANTOPRAZOLE 40 MG TABLET PO (08:27)
[2025-01-16] MEDS: ZINC SULFATE 220 MG CAPSULE PO (08:27)
[2025-01-16] MEDS: ASPIRIN EC 81 MG TABEC PO (08:27)
[2025-01-16] MEDS: MULTIVITAMINS TABLET 1 TAB PO (08:27)
--- NOTE | 2025-01-16 08:34 | PC.NURSE ---
held Losartan 25 mg PO medication this morning d/t low Bp 93/62. This nurse called Dr. Christina at 0830 to confirm the need to hold it. She agreed.
--- NOTE | 2025-01-16 09:58 | PD.IDPROG ---
Subjective Subjective Interval history: rocephin and po socy for 6 weeks based partly on tram stain as that had gpc that may hve been overgrown by proteus. labs noted. unremarkable, so rx may not change much Exam Vital Signs Temp Pulse Resp BP Pulse Ox O2 Del Method 97.0 F 60 14 92/62 97 Room Air 01/16/25 08:00 01/16/25 08:34 01/16/25 08:00 01/16/25 08:34 01/16/25 08:00 01/16/25 08:00 Narrative Exam limited visit Objective - Internal Medicine Labs 01/16/25 05:40 01/16/25 05:40 Labs: Laboratory Results - last 24 hr 01/16/25 05:40 WBC 7.0 RBC 3.85 L Hgb 12.1 L Hct 36.3 L MCV 94 MCH 31.4 MCHC 33.3 RDW Std Deviation 48.2 H Plt Count 128 L Neut % (Auto) 53 Lymph % (Auto) 33 [place] % (Auto) 10 Eos % (Auto) 3 Baso % (Auto) 1 Neut # (Auto) 3.7 Lymph # (Auto) 2.3 [place] # (Auto) 0.7 Eos # (Auto) 0.2 Baso # (Auto) 0.1 Immature Gran # (Auto) 0.02 H Absolute Nucleated RBC 0.00 Immature Gran % 0 Nucleated RBC % 0 Sodium 137 Potassium 4.0 Chloride 102 Carbon Dioxide 22.7 Anion Gap 12 BUN 15 Creatinine 0.9 Estim Creat Clear Calc 75.1 eGFR > 60 BUN/Creatinine Ratio 17 Glucose 118 H Calculated Osmolality 275 Calcium 9.6 Corrected Calcium 9.6 Phosphorus 3.8 Magnesium 1.9 Total Bilirubin 0.9 AST 27 ALT 16 Alkaline Phosphatase 105 Total Protein 7.4 Albumin 4.2 Globulin 3.2 Albumin/Globulin Ratio 1.3 Assessment & Plan A&P Narrative osteo of L foot by x ray. no other studies noted dm II, a1c 7.1 noted prior amputation of L great toe. 2020 6 weeks rocephin and doxy from admit if bc remain neg but note that this only kills germs and will not heal a wound. ongoing wound care essential will check superficially again on sunday.please ask lab to check renalpanel,esr, cbc weekly on iv rx and remove line at end of rx will see again prn Time Spent With Patient Time: Total time spent is greater than 50% in coordination of care (as documented) at patient's floor/unit and/or counseling patient:
[2025-01-16] MEDS: HEPARIN SOD LOCK SYR 100 UNIT/ML 500 UNIT STFIELD (10:15)
--- NOTE | 2025-01-16 10:25 | ESDS_ITS ---
<Statement entered by Abril Christina MD - 01/16/25 22:16> Patient was seen and examined by me personally. I have directly supervised and reviewed documentation by the team resident and agree with its findings. ------- Plan of care was discussed with the attending, Dr. Enmanuel Christina, PGY-2 Planned Discharge Date 01/16/25 DS: Providers Provider Date of admission: 01/11/25 10:06 Primary care physician: Physician No Primary/Family Admitting Provider: Vincent Christina MD Attending Provider on Admission: Mynor Singer MD Consults: 01/11/25 10:17 Consult to General Surgery Stat Comment: osteomyelitis of the left foot Consulting Provider: Hector Harrington 01/12/25 01:38 Referral Wound Care Routine Comment: 01/12/25 01:39 Referral Registered Dietitian Routine Comment: 01/12/25 11:45 Consult to Infectious Diseases Stat Comment: Osteomyelitis Consulting Provider: Darek Pettit 01/14/25 11:56 PT [Referral Physical Therapy] Routine Comment: Physician Instructions: Attending Provider on DC: Mynor Singer MD Discharging Provider: Mynor Singer MD Anticipated date of discharge: 01/16/25 DS: Diagnosis Problem List Completed Was Problem List Reviewed/Reconciled?: Yes Hospital Course Hospital Course Hospital course: Summary Mr. Paige is a 64-year-old male with past medical history significant for hypertension, hyperlipidemia, ouc-evvdvva-exggssljk type 2 diabetes, CAD status post CABG, HFrEF with EF of 25% presented to the [facility] ED on 01/10/25 ulcer on the plantar surface of his left foot. He is admitted to the hospital for osteomyelitis IV antibiotics management and further evaluation by general surgery. In the ED she is done showed: CT chest/abdomen/pelvis shows a severe old compression fracture L1 vertebral body, no acute findings. Foot CT showed chronic osteomyelitis of the tibia-fibula, second metatarsal, middle and distal phalanges of second digit. Blood culture, no growth in 5 days in 2 bottles. Left toe wound culture positive for Proteus Mirabella's and Klebsiella pneumonia. UA Negative for UTI, urine tox positive for alcohol. CIWA protocol was started and remained 0-1 during hospital stay. Surgery consulted for osteomyelitis, no surgical intervention was indicated. Per ID patient was switched from IV cefepime and vancomycin to rocephin and doxycline for a total of 6-week from admission to outpatient. PICC line inserted on 01/16/25 for IV antibiotic. Echo done on 01/11/25 show an significant improvement of HFrEF EF25% to EF 50-55% while on GDMT. However due to low blood pressure Coreg and losartan were held. Instructed patient to follow-up with cardiology for GDMT reconciliation. Throughout the hospital course patient other problems were managed and his condition improved remarkably with progression of hospital course. Further plan to discharge the patient home with antibiotics course since he is hemodynamically stable to be discharged home with home health with the following instructions. Discharge recommendation: -Follow up with PCP within 1 week of discharge, if you do not have a primary care physician you can come see us at the [facility] [place] by calling [phone] -You have been prescribed antibiotics CEFTRIAXONE 2G daily through PICC line for through 02/22, and also take DOXYCYCLINE 100mg twice daily through 02/22. please complete the course -During the hospitalization your BP was low therefore we held your COREG and LOSARTAN, please see your pie topper within 1-2 weeks to resume if your blood pressure is high -Please abstain from alcohol completely. 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 Christina PGY-2 Kenyatta Marie MD PGY-1, Internal Medicine Time Spent with Patient Time attestation: Total time spent providing and/or coordinating discharge services: 34 min Time spent: Greater than 30 minutes Home Health Home Health Referral Orders: 01/16/25 10:14 Home Health Referral Routine Reason For Exam: Osteomyelitis of left foot Home-Bound The patient must either because of illness or injury, need the aid of supportive devices such as crutches, canes, wheelchairs, and walkers; the use of special transportation; or the assistance of another person in order to leave their place of residence; OR have a condition such that leaving his or her home is medically contraindicated. In addition, the patient also meets the following criteria: patient is normally unable to leave the home and leaving home requires considerable taxing effort. Addendum to Home Health Certification Practitioner's Certification: I certify that the patient has been under my care in the hospital and the care of attending physician (see below). We had a xgji-nf-adjo encounter on (see date below). My clinical findings indicate that the patient is home bound per the above criteria and the Home Health Services noted in these orders are medically necessary. The primary reason for the wtrq-re-hpyl encounter is related to the fact that the patient requires home health services. Date Certifying Wznb-kq-Qbmg Physician Encounter: 01/11/25 Physician's Name who will Assume Oversight for HH Services: Physician No Primary/Family SHIPWRIGHT SUPERVISOR - Community Resources: No PT to Evaluate: No PT to evaluate and provide a treatmnet plan to increase patient's mobility and strength. Wound Care: Yes Home Health RN - Wound Care Order: Left foot ulcer IV Therapy: Yes IV Medication: Ceftriaxone IV Dose: 2gm IV Frequency: Daily IV Stop Date: 02/22/25 Discontinue PICC Line Once Treatment Complete: Yes RN Safety Evaluation: Yes RN to evaluate and create a plan of care that will produce positive outcomes. Palliative Treatment: No Palliative treatment and evaluate the need for hospice. Home Health Aide - Personal Care: No Home Health Aide to assist with any ADL's. Exam Vital Signs Temp Pulse Resp BP Pulse Ox O2 Del Method 97.0 F 59 L 21 H 137/79 H 99 Room Air 01/16/25 08:00 01/16/25 10:20 01/16/25 10:20 01/16/25 10:20 01/16/25 10:20 01/16/25 10:20 Narrative Exam GENERAL: A&Ox3 . Awake, Not in acute distress NEURO: no focal neurological deficits HEENT: Atraumatic, Normocephalic. mucous membranes moist. Eyes open, symmetrical, & clear HEART: Normal Heart Sounds, CABG scar noted on the sternum LUNGS: Clear to auscultation with no wheezing or crackles. ABDOMEN: soft, non-distended, non-tender, bowel sounds heard, no guarding or rebound tenderness SKIN: No Rash or ecchymoses EXTREMITIES: No edema, tenderness, able to move all 4 extremities, pedal pulses palpated, Left foot first digit amputation, right foot second and third digit amputation, diabetic foot ulcer noted on plantar surface on the left foot, image is below Discharge Plan Plan Patient Disposition: Home w/HOME HEALTH Patient condition on transfer: Stable Care Plan Goals: -Follow up with PCP within 1 week of discharge, if you do not have a primary care physician you can come see us at the [facility] [place] by calling [phone] -You have been prescribed antibiotics CEFTRIAXONE 2G daily through PICC line for through 02/22, and also take DOXYCYCLINE 100mg twice daily through 02/22. please complete the course -During the hospitalization your BP was low therefore we held your COREG and LOSARTAN, please see your pie topper within 1-2 weeks to resume if your blood pressure is high -Please abstain from alcohol completely. -Continue rest of medications as previously prescribed -Return to the ED or call EMS if symptoms return and/or worsen - Realice gaby elana de seguimiento con lund m?dico de cabecera dentro de la semana posterior al lizzy. Si no tiene un m?dico de cabecera, puede visitarnos en la [facility] llamando al [phone]. - Se le hurley recetado antibi?ticos: ceftriaxona 2 g al d?a a jorge?s de gaby v?a central de inserci?n perif?pancho (PICC) hasta el 02/22, y tambi?n stephane doxiciclina 100 mg dos veces al d?a hasta el 02/22. Por favor, complete el tratamiento. - Benjamin la hospitalizaci?n, lund presi?n arterial estuvo baja, por lo que suspendimos lund tratamiento con coreg y losart?n. Si lund presi?n arterial es lizzy, consulte a lund cardi?logo dentro de 1 a 2 semanas para reanudarlo. - Abst?ngase completamente de consumir alcohol. - Contin?e con el carlos de los medicamentos seg?n lo prescrito previamente. - Regrese a urgencias o llame al servicio de emergencias m?dicas si los s?ntomas regresan o empeoran Prescriptions/Referrals Prescriptions/Med Rec: New aspirin 81 mg Tablet,Delayed Release (Dr/Ec) 81 mg PO QDAY Qty: 30 0RF ascorbic acid (vitamin C) [Vitamin C] 250 mg Tablet 500 mg PO BID Qty: 30 0RF pantoprazole 40 mg Tablet,Delayed Release (Dr/Ec) 40 mg PO QDAY 30 Days Qty: 30 0RF doxycycline hyclate 100 mg Tablet 100 mg PO BID 37 Days Qty: 74 0RF multivitamin with folic acid [Tab-A-Kurtis] 400 mcg Tablet 1 tab PO QDAY 30 Days Qty: 30 0RF zinc sulfate 50 mg zinc (220 mg) Capsule 220 mg PO QDAY 30 Days Qty: 132 0RF (DME) Contour Next Test Strips Strip See Rx Instructions .Route Qty: 100 0RF Rx Instructions: As directed (DME) lancets 17 gauge misc See Rx Instructions .Route Qty: 200 0RF Rx Instructions: As directed Continued metformin 1,000 mg tablet 1,000 mg PO BID Qty: 60 0RF Januvia 100 mg tablet 100 mg PO QDAY Patient Comments: TAKE 1 TABLET BY MOUTH ONCE DAILY FOR DIABETES FOR 30 DAYS Jardiance 10 mg tablet 10 mg PO DAILY Patient Comments: TAKE 1 TABLET BY MOUTH ONCE DAILY Changed atorvastatin 40 mg tablet 40 mg PO HS Qty: 30 0RF Patient Comments: TAKE 1 TABLET BY MOUTH ONCE DAILY Discontinued amlodipine 2.5 mg tablet 2.5 mg PO QDAY Patient Comments: TAKE 1 TABLET BY MOUTH ONCE DAILY FOR 30 DAYS Referrals: No Primary/Family,Physician [Primary Care Provider] - Patient/Caregiver Discharge Instructions Education Materials: Diabetes: Keeping Feet Healthy, Diabetes: Inspecting Your Feet, Alcoholism: Getting Help, Diabetes: Activity Tips, Diabetes: Living Your Life, Caring for Your PICC Dc, Preventing Surgical Site Infections, Diabetes: Meal Planning Print Language: Lithuanian Stand Alone Forms: María Award Info., Patient Portal Info Letter Discharge Order Discharge Orders: Discharge (Routine); Ordered 01/16/25 Ordered By: Abril Christina Quality Discharge Quality Measures VTE prophylaxis Attestestation MD Attestation I attest that I was physically present for the evaluation, physical examination, lab and imaging review of the patient with the residents. I discussed the case with the residents and agree with the findings and plans of care as documented above. Mynor Singer MD
[2025-01-16] MEDS: LIDOCAINE INJ PF 1% 5 ML VIAL 2 ML INFL (10:30)
--- NOTE | 2025-01-16 11:16 | PC.NURSE ---
Spoke with Dr. Christina at approx. 1115 regarding patient's PICC line. She is going to put in an order for access to use PICC line.
[2025-01-16] MEDS: INSULIN LISPRO (AdmeLOG) 1 UNIT/0.01 ML UNIT SC (11:45)
--- NOTE | 2025-01-16 12:08 | PC.NURSE ---
Pt requesting additional DM resources. Notified [employer]ro market research executive per market research executive will be up soon to provide MD options/resources.
--- NOTE | 2025-01-16 12:31 | PC.CM ---
Addendum entered by Nury Tubbs RN 01/16/25 15:48: patient got his IV ABX dose today. Patient will be discharged today and [facility] will open patient tomorrow on 01/17. . [facility] will deliver meds this evening. Original Note: I sent referral for home health and Infusion for IV abx. Patient accepted by [facility] and [facility]. I spoke to patient nurse to follow-up on PICC line and to find out when patient gets his ABX dose for today. Chloe states patient will not get dose until 9pm today. I asked that she call the doctor and get the dose earlier so we can send patient out today.
--- NOTE | 2025-01-16 12:41 | PC.NURSE ---
Spoke with Nury from [employer] at 1230, she stated that patients ABX that is scheduled for 2100 tonight needs to be administered earlier if patient is going to be D/C this afternoon. This nurse called Dr. Singer at 1240 to request the order of Rocephin ABX be changed from the scheduled time at 2100 to 1300. said he will change the order time.
[2025-01-16] MEDS: cefTRIAXone/D5w 2gm 2 GM/50 ML BAG IV (13:00)
--- NOTE | 2025-01-16 13:09 | PC.NURSE ---
Spoke with Dr. Singer at 1240 and he said patient can be discharged when ABX is completed. ABX is currently running.
--- NOTE | 2025-01-20 08:16 | ESCONSULT_ITS ---
RE: HENRIQUE LAL : 1960 DATE OF CONSULTATION: 01/14/2025 REFERRING PHYSICIAN: Dr. Christina. REASON FOR CONSULTATION: Osteomyelitis of the left foot. HISTORY OF PRESENT ILLNESS: The patient is a unfortunate 64-year-old man. He is a poor historian and speaks a mixture of Jordanian and Yakut. His history is obtained mostly from the patient though his medical problems include primarily diabetes. His surgeries include left foot surgery about 3 years ago where his great toe was amputated. He has been seeing wound care since then and they failed to make any progress with the wound. His circulation studies were negative about 6 months ago. ALLERGIES: NONE NOTED. IMMUNIZATIONS: Last tetanus was about 1 year ago. He does take a flu shot every year. He has had 2 Covid vaccines. He has had pneumococcal vaccine. FAMILY HISTORY: Family history is positive for hypertension in various relatives. SOCIAL HISTORY: He lives at home with his [id number] and his and his son. He is a nonsmoker. His left foot has an open ulcer. He is able to describe this but does not describe the prior treatments or their effectiveness. Imaging raises concern for osteomyelitis beneath the ulcer, which is reasonable. Inflammatory markers are presumably elevated, but I cannot see them. The patient is a 64-year-old diabetic with an A1c of 6.5, so his A1c diabetic control may need to be improved, but it is already not too bad. His A1c is actually 7.1, which is still not bad, so his control is okay. . He has a left foot ulceration with a wound that shows some gangrene and inflammed tissue, but circulation is grossly okay. Last circulation check was about 5 months ago, 5-6 months ago. ASSESSMENT: Osteomyelitis of the left foot in a well-controlled diabetic with an A1c of 7.1. RECOMMENDATIONS: The patient is going to need long-term antibiotics. I will check inflammatory markers tomorrow and a sed rate as well as a CRP as well as hepatitis C screen. I will check on him superficially on sunday if still here as I will not be here Sunday. Hopefully he can go home with the line in place and on IV antibiotics for 6 weeks. DT: 14:25:38 TT: 16:35:00 Ref: [id number] - TID: [id number] MTDD
== END 2025-01-16 16:10 | disposition home health service (06) | DRG 637 ==
LOC: SERX 01-11 07:49 → SERHOLD 01-11 10:34 → S3SX 01-12 06:41
PROVIDERS: Emergency Medicine; Internal Medicine Infectious Disease; Admitting Provider Student in an Organized Health Care Education/Training Program; Emergency Provider Emergency Medicine; Visit Provider Student in an Organized Health Care Education/Training Program
DX: E11.69 Type 2 diabetes mellitus with other specified complication (principal); J15.0 Pneumonia due to Klebsiella pneumoniae; I50.22 Chronic systolic (congestive) heart failure; M86.172 Other acute osteomyelitis, left ankle and foot; I11.0 Hypertensive heart disease with heart failure; Z95.1 Presence of aortocoronary bypass graft; Z79.84 Long term (current) use of oral hypoglycemic drugs; E11.621 Type 2 diabetes mellitus with foot ulcer; L97.529 Non-pressure chronic ulcer of other part of left foot with unspecified severity; Z89.412 Acquired absence of left great toe; Y90.8 Blood alcohol level of 240 mg/100 ml or more; Z79.82 Long term (current) use of aspirin; I25.10 Atherosclerotic heart disease of native coronary artery without angina pectoris; B96.4 Proteus (mirabilis) (morganii) as the cause of diseases classified elsewhere; E78.00 Pure hypercholesterolemia, unspecified; F10.229 Alcohol dependence with intoxication, unspecified; S09.90XA Unspecified injury of head, initial encounter; Z87.891 Personal history of nicotine dependence; Z79.4 Long term (current) use of insulin; W19.XXXA Unspecified fall, initial encounter
CPT/HCPCS: 36415; 70450; 70486; 71045; 71250; 72125; 73630; 73701; 74176; 80053; 80061; 80202; 80307; 80320; 80329; 81001; 82010; 82150; 82248; 82550; 83036; 83605; 83690; 83735; 83880; 84100; 84145; 84439; 84443; 84484; 84591; 85025; 85610; 85652; 85730; 86140; 86803; 87040; 87070; 87077; 87186; 87205; 87400; 87811; 93005; 93225; 93306; 96365; 96366; 96375; 97162; 99285; A4649; C1751; C1894; J0692; J0696; J1642; J1644; J1815; J2405; J2470; J3370; J3373; J3375; J3411; J3475; J3490; J7030; J7050; J7999; Q9967; A9270; G0480

== ENCOUNTER 2025-01-17 04:33 | Emergency (ER) | payer MEDICARE, MEDICAID, SELFPAY ==
[2025-01-17 04:34] VITALS: BMI 26.0
[2025-01-17 05:01] VITALS: BP 108/68; PULSE 66; RESP 18; TEMP 36.7; O2SAT 98
--- NOTE | 2025-01-17 05:38 | PD.EDRME ---
Rapid Medical Screening Exam RME Arrival date/time: 01/17/25 04:33 64M with extensive PMH including DM presents to ED because he accidentally pulled out his PICC line that was put in several days ago from recent admission. Patient is supposed to receive 2 g Rocephin per day. Chief Complaint: General Adult/Misc Complain Vital signs: Vital Signs Temperature 98.0 F 01/17/25 05:01 Pulse Rate 66 01/17/25 05:01 Respiratory Rate 18 01/17/25 05:01 Blood Pressure 108/68 01/17/25 05:01 Pulse Oximetry (%) 98 01/17/25 05:01 Oxygen Delivery Method Room Air 01/17/25 05:01
[2025-01-17] MEDS: LIDOCAINE 1% IM (06:11)
[2025-01-17] MEDS: CEFTRIAXONE 2000 MG IM (06:11)
--- NOTE | 2025-01-17 07:12 | PD.EDADULT ---
ED General RME/HPI General Chief complaint: General Adult/Misc Complain Stated complaint: PORT CATH CAME OUT Time Seen by Provider: 01/17/25 06:29 Arrival date/time: 01/17/25 04:33 Limitations: no limitations RME / HPI RME / HPI narrative: 01/17/25 04:33 64M with extensive PMH including DM presents to ED because he accidentally pulled out his PICC line that was put in several days ago from recent admission. Patient is supposed to receive 2 g Rocephin per day. 7:13a patient denies fevers chills nausea vomiting pain in his upper extremity shortness of breath chest pain. This happened overnight. Related Data Home Medications ?Medication ?Instructions ?Recorded ?Confirmed sitagliptin phosphate 100 mg 100 mg PO QDAY 01/27/21 01/11/25 tablet (Januvia) empagliflozin 10 mg tablet 10 mg PO DAILY 01/12/25 01/13/25 (Jardiance) Previous Rx's ?Medication ?Instructions ?Recorded metformin 1,000 mg tablet 1,000 mg PO BID #60 tabs 08/01/19 ascorbic acid (vitamin C) 250 mg 500 mg (2 x 250 mg) PO BID #30 tabs 01/16/25 tablet (Vitamin C) aspirin 81 mg tablet,delayed 81 mg PO QDAY #30 tabs 01/16/25 release atorvastatin 40 mg tablet 40 mg PO HS #30 tabs 01/16/25 blood sugar diagnostic (Contour #100 ea 01/16/25 Next Test Strips) doxycycline hyclate 100 mg tablet 100 mg PO BID 37 days #74 tabs 01/16/25 lancets 17 gauge #200 ea 01/16/25 multivitamin with folic acid 400 1 tab PO QDAY 30 days #30 tabs 01/16/25 mcg tablet (Tab-A-Kurtis) pantoprazole 40 mg tablet,delayed 40 mg PO QDAY 30 days #30 tabs 01/16/25 release zinc sulfate 50 mg zinc (220 mg) 220 mg (4.4 x 50 mg zinc (220 mg)) 01/16/25 capsule PO QDAY 30 days #132 caps Allergies Allergy/AdvReac Type Severity Reaction Status Date / Time No Known Allergies Allergy Verified 01/19/25 07:37 ED Exam General Limitations: Present no limitations General appearance: Present alert and in no apparent distress Head Head exam: Present atraumatic and normocephalic Eye Eye exam: Present normal appearance and PERRL ENT ENT exam: Present normal exam, normal oropharynx and mucous membranes moist Neck Neck exam: Present normal inspection and full ROM Chest Chest inspection: Present symmetric chest wall rise Respiratory Respiratory exam: Absent respiratory distress Cardiovascular Cardiovascular exam: Present regular rate and normal rhythm Abdominal Exam Abdominal exam: Absent distention or tenderness Extremities Exam Extremities exam: Present full ROM, normal capillary refill and other (Right upper extremity with partially removed PICC line in the antecubital fossa, dried blood around, not actively bleeding); Absent tenderness Course Quality Measures none Orders Category Date Time Status cefTRIAXone [Rocephin] 2,000 mg Med 01/17/25 05:38 Discontinued Lidocaine 1% 20 ml [Xylocaine 1% 20 ML] 4.2 ml IM X1 Vital Signs Vital signs: Vital Signs Temperature 98.0 F 01/17/25 05:01 Pulse Rate 66 01/17/25 05:01 Respiratory Rate 18 01/17/25 05:01 Blood Pressure 108/68 01/17/25 05:01 Pulse Oximetry (%) 98 01/17/25 05:01 Oxygen Delivery Method Room Air 01/17/25 05:01 Discharge Plan Plan Patient Disposition: HOME (Self Care) Prescriptions/Referrals Prescriptions/Med Rec: No Action metformin 1,000 mg tablet 1,000 mg PO BID Qty: 60 0RF Januvia 100 mg tablet 100 mg PO QDAY Patient Comments: TAKE 1 TABLET BY MOUTH ONCE DAILY FOR DIABETES FOR 30 DAYS Jardiance 10 mg tablet 10 mg PO DAILY Patient Comments: TAKE 1 TABLET BY MOUTH ONCE DAILY aspirin 81 mg Tablet,Delayed Release (Dr/Ec) 81 mg PO QDAY Qty: 30 0RF ascorbic acid (vitamin C) [Vitamin C] 250 mg Tablet 500 mg PO BID Qty: 30 0RF pantoprazole 40 mg Tablet,Delayed Release (Dr/Ec) 40 mg PO QDAY 30 Days Qty: 30 0RF doxycycline hyclate 100 mg Tablet 100 mg PO BID 37 Days Qty: 74 0RF multivitamin with folic acid [Tab-A-Kurtis] 400 mcg Tablet 1 tab PO QDAY 30 Days Qty: 30 0RF zinc sulfate 50 mg zinc (220 mg) Capsule 220 mg PO QDAY 30 Days Qty: 132 0RF atorvastatin 40 mg tablet 40 mg PO HS Qty: 30 0RF Patient Comments: TAKE 1 TABLET BY MOUTH ONCE DAILY (DME) Contour Next Test Strips Strip See Rx Instructions .Route Qty: 100 0RF Rx Instructions: As directed (DME) lancets 17 gauge misc See Rx Instructions .Route Qty: 200 0RF Rx Instructions: As directed Referrals: No Primary/Family,Physician [Primary Care Provider] - In 1 week Problem List Clinical Impression: PIC line (peripherally inserted central catheter) removal Patient/Caregiver Discharge Instructions Other Activity Instructions:: Por favor regresar al departamento de emergencias manana para recibir lund regimen de antibioticos a travez de la vena. Por favor regresar el es para consultar con el radiologo intervencionalista para que le vuelvan a colocar el catheter PICC en la vena. Si desarolla fiebre, pus o cambio de color de la piel por favor regresar. Please return tomorrow to receive your scheduled dose of IV antibiotics. Please return on Sunday so that we can consult interventional radiology for placement of your PICC line again. Education Materials: ED PICC Line Care Print Language: Macanese Stand Alone Forms: [place] Award Info., Patient Portal Info Letter MDM Narrative MDM hospital course: Patient is a 64-year-old male is in emergency department concerns for partially removed PICC line. Patient is otherwise asymptomatic, no signs of infection, fever no bleeding. Patient is hemodynamically stable not distressed. Patient without any unilateral swelling, no chest pain or shortness of breath less likely DVT of the upper extremity. Had joint symptom in conversation with the patient, advised patient not to push the PICC line back in, and we will work on trying to find an appropriately trained staff member in the hospital that can remove the PICC line. 7:15a spoke with [facility] staffing, confirmed with [employer] that has a trained nurse that can remove the PICC line at bedside. Will come down and remove the PICC line. Also confirmed that we do not have interventional radiology in house today and so the PICC line will not be able to be replaced. 7:22a had detasseling crew supervisor nurse Mara came to bedside, to remove PICC line. Patient is hemodynamically stable not distressed. Will discharge to home with close return precautions follow-up with his primary care doctor. Asked the patient to monitor for signs of infection, bleeding, swelling to the upper extremity. If any of these were to occur patient is to return to the emergency department immediately. Patient advised to return to the emergency [place] tomorrow to receive his IV dose of Rocephin 2 g. Also advised him to return on Sunday for consultation with interventional radiology for replacement of his PICC line again. Medical Records Reviewed [facility] Meds/Rx Considered, not Ordered None Labs/Rad/Tests considered, not Ordered None Chronic Illness/Social Conditions Add or document further as needed: See MDM Lab Interpretation Labs: none Imaging Imaging interpretation: none Medication Administration(s) Medication Administration History Discontinued Medications Ceftriaxone Sodium 2,000 mg/ (Lidocaine HCl 4.2 ml) 0 mg IM X1 ONE Stop: 01/17/25 05:39 Last Admin: 01/17/25 06:11 Dose: 2,000 mg Documented By: CHANTAL See above Diagnosis Differential diagnosis: PICC line malfunction Dispositon Disposition: Discharge Home
--- NOTE | 2025-01-17 07:37 | PC.NURSE ---
I was called to remove a partially out PICC line. PT said it slipped out during his sleep, he attempted to push it back in without success. PICC line removed, without incident,approx 3 cm in only, no bleeding or pain. Held pressure for approx 5 minutes. PT made aware to notify HH RN about not having IV access. Dr. Ellis made aware PICC line out.
== END 2025-01-17 08:09 | disposition home or self-care (01) ==
PROVIDERS: Emergency Provider Emergency Medicine
DX: Z45.2 Encounter for adjustment and management of vascular access device (principal); E11.9 Type 2 diabetes mellitus without complications
CPT/HCPCS: 96372; 99282; J0696; J3490

== ENCOUNTER 2025-01-18 18:30 | Emergency (ER) | payer MEDICARE, MEDICAID, SELFPAY ==
[2025-01-18 18:31] VITALS: BMI 25.2
[2025-01-18 18:47] VITALS: BP 126/80; PULSE 80; RESP 19; TEMP 37.4; O2SAT 99
--- NOTE | 2025-01-18 19:17 | PD.EDSKIN ---
ED Skin Abcess FB-RME/HPI General Chief complaint: Skin/Abscess/Foreign Body Stated complaint: NEED ANTIBIOTIC SHOT Time Seen by Provider: 01/18/25 18:32 Arrival date/time: 01/18/25 18:30 This is a case of 64-year-old male with history of diabetes and diabetic left foot ulcer came in in the emergency room for ceftriaxone 2 g injection today patient initially have PICC line and was accidentally pulled yesterday and was seen by the previous provider he was advised to return here for antibiotic treatment and he will also return tomorrow for PICC line insertion patient denies any pain fever or chills or any discharge from the wound Limitations: no limitations Related Data Home Medications ?Medication ?Instructions ?Recorded ?Confirmed sitagliptin phosphate 100 mg 100 mg PO QDAY 01/27/21 01/11/25 tablet (Januvia) empagliflozin 10 mg tablet 10 mg PO DAILY 01/12/25 01/13/25 (Jardiance) Previous Rx's ?Medication ?Instructions ?Recorded metformin 1,000 mg tablet 1,000 mg PO BID #60 tabs 08/01/19 ascorbic acid (vitamin C) 250 mg 500 mg (2 x 250 mg) PO BID #30 tabs 01/16/25 tablet (Vitamin C) aspirin 81 mg tablet,delayed 81 mg PO QDAY #30 tabs 01/16/25 release atorvastatin 40 mg tablet 40 mg PO HS #30 tabs 01/16/25 blood sugar diagnostic (Contour #100 ea 01/16/25 Next Test Strips) doxycycline hyclate 100 mg tablet 100 mg PO BID 37 days #74 tabs 01/16/25 lancets 17 gauge #200 ea 01/16/25 multivitamin with folic acid 400 1 tab PO QDAY 30 days #30 tabs 01/16/25 mcg tablet (Tab-A-Kurtis) pantoprazole 40 mg tablet,delayed 40 mg PO QDAY 30 days #30 tabs 01/16/25 release zinc sulfate 50 mg zinc (220 mg) 220 mg (4.4 x 50 mg zinc (220 mg)) 01/16/25 capsule PO QDAY 30 days #132 caps Allergies Allergy/AdvReac Type Severity Reaction Status Date / Time No Known Allergies Allergy Verified 01/18/25 18:33 Review of Systems Review of Systems Systems Reviewed: All systems reviewed, normal except as documented Constitutional Constitutional: Reports system reviewed and no additional complaints, except as documented and Reports as per HPI Cardiovascular Cardiovascular: Reports system reviewed and no additional complaints, except as documented and Reports as per HPI Respiratory Respiratory: Reports system reviewed and no additional complaints, except as documented and Reports as per HPI Gastrointestinal Gastrointestinal: Reports system reviewed and no additional complaints, except as documented and Reports as per HPI Integumentary/Breasts Skin/Breast: Reports other (Diabetic foot ulcer) Neurologic Neurologic: Reports system reviewed and no additional complaints, except as documented and Reports as per HPI Past Medical History Past Medical History NEUROLOGIC: Negative Seizures CARDIAC: Positive Cardiac Disorders, Hypercholesterolemia and Hypertension; Negative Congestive Heart Failure RESPIRATORY: Negative Chronic Obstructive Pulmonary Disease (COPD) or Asthma GASTROINTESTINAL: Positive Gastrointestinal Bleed GENITOURINARY: Negative Renal Disease MUSCULOSKELETAL: Positive Arthritis ENDOCRINE: Positive Endocrine Disorders and Diabetes Mellitus Type 2; Negative Diabetes Mellitus Type 1 HEMATOLOGIC: Positive Anemia; Negative Sickle Cell Disease PSYCHO/SOCIAL: Positive Depression and Anxiety OTHER HISTORY: Positive Hospitalization; Negative Blood Transfusions, Blood Transfusion Reaction or Anesthesia Reactions Surgical History SURGICAL: Positive Cardiac Surgery, 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 TOE, AND TWO 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 FOOT) Social History SMOKING STATUS: Never smoker SUBSTANCE USE: does not use ED Exam General Limitations: Present no limitations General appearance: Present alert, in no apparent distress and other (Patient is awake alert oriented not in distress nontoxic looking well-hydrated well-nourished) Head Head exam: Present atraumatic, normocephalic and normal inspection Eye Eye exam: Present normal appearance, PERRL and EOMI ENT ENT exam: Present normal exam, normal oropharynx and mucous membranes moist Neck Neck exam: Present normal inspection, full ROM and trachea midline Chest Chest inspection: Present normal inspection and symmetric chest wall rise Respiratory Respiratory exam: Present normal lung sounds bilaterally; Absent respiratory distress, wheezes, stridor, accessory muscle use or prolonged expiratory phase Cardiovascular Cardiovascular exam: Present regular rate, normal rhythm and normal heart sounds; Absent bradycardia, tachycardia, irregular rhythm, systolic murmur or diastolic murmur Abdominal Exam Abdominal exam: Present soft and normal bowel sounds Extremities Exam Extremities exam: Present normal inspection and full ROM Back Exam Back exam: Present normal inspection and full ROM Neurological Exam Neurological exam: Present alert, oriented X3, CN II-XII intact, normal gait and reflexes normal; Absent motor sensory deficit Psychiatric Psychiatric exam: Present normal affect and normal mood Skin Skin exam: Present warm, dry, intact, normal color and other (Patient noted to have a foot ulcer on the left plantar aspect of the left foot no discharge with mild redness no swelling no foul-smelling discharge mild to moderate tenderness no abscess no cellulitis) Course Quality Measures none Orders Category Date Time Status cefTRIAXone [Rocephin] 2 gm Med 01/18/25 19:01 Active SODIUM CHLORIDE 0.9% (Popper) [Ns 0.9% (P)] 50 ml IV X1 Vital Signs Vital signs: Vital Signs Temperature 99.3 F 01/18/25 18:47 Pulse Rate 80 01/18/25 18:47 Respiratory Rate 19 01/18/25 18:47 Blood Pressure 126/80 01/18/25 18:47 Pulse Oximetry (%) 99 01/18/25 18:47 Oxygen Delivery Method Room Air 01/18/25 18:47 Patient oxygen saturation is 99% in room air Skin / Abscess / Foreign Body MDM Narrative MDM Narrative:: This is a case of 64-year-old male with history of diabetes and diabetic left foot ulcer came in in the emergency room for ceftriaxone 2 g injection today patient initially have PICC line and was accidentally pulled yesterday and was seen by the previous provider he was advised to return here for antibiotic treatment and he will also return tomorrow for PICC line insertion patient denies any pain fever or chills or any discharge from the wound physical examination patient is awake alert oriented not in distress nontoxic looking well-hydrated well-nourished physical exam showed Patient noted to have a foot ulcer on the left plantar aspect of the left foot no discharge with mild redness no swelling no foul-smelling discharge mild to moderate tenderness no abscess no cellulitis the rest of the tests were normal ROM intact neurovascular intact patient was given ceftriaxone IV 2 g here in the emergency room and he is well understood that he will return tomorrow for another antibiotic treatment and for possible PICC line insertion for any worsening symptoms or any emergent concern return precaution to the ER was advised follow-up with PCP in 2 days for reevaluation Patient was discharged with comfortable condition walking with stable gait. Patient verbalized no further complains explained diagnosis and answered patient question. Patient is comfortable with the proposed management plan including the need to follow up with his/her primary care physician and any specialist if applicable Discussed patient for any urgent condition or worsening sx, He/She needed to go to emergency room immediately or call 911. Patient acknowledge the responsibility to follow up as instructed and to monitor her/his symptoms. For any persistence of the symptoms for more than 3-5 days return precaution advised. Discussed the result of the test and was given printed discharge instruction Patient data External records reviewed:: [facility] previous records Clinical information provided by:: patient Social determinants that could affect healthcare access:: none Patient has the following chronic illnesses:: None How is presenting disease/condition affected by chronic disease/condition?: no chronic disease Evaluation data The following diagnostics were reviewed and interpreted by me:: other (specify) (None) Lab and/or radiology exams considered but not ordered:: None Interpretation Summary: None Medications / Prescriptions Medications or Prescriptions considered but not ordered:: Given Medication administrations:: Medication Administration History Ceftriaxone Sodium 2 gm/ (Sodium Chloride) 50 mls @ 100 mls/hr IV X1 ONE Stop: 01/18/25 19:30 Given Consultations Consultation(s) initiated? (list below): No Diagnosis Skin/Abscess Differential Diagnosis: abscess of skin or subcutaneous tissue, cellulitis and other (Diabetic ulcer) Most likely diagnosis given after review of the tests above:: Diabetic foot ulcer Admission Indicated Admission indicated?: not indicated Explain why admission is indicated or not indicated:: Not indicated Admission Request Was there a request for admission?: No Admission Attestation Admission request attestation: Not indicated Disposition Plan Disposition Plan: Discharge Discharge Attestation Discharge Attestation: The patient and all family members were given an opportunity to ask questions and understood the discharge instructions. Discharge instructions specifically effects, indications for sooner follow up or return to the emergency department, and the expected course of current diagnosis. Patient condition: Stable Discharge Plan Plan Patient Disposition: HOME (Self Care) Patient condition on transfer: Stable Prescriptions/Referrals Prescriptions/Med Rec: No Action metformin 1,000 mg tablet 1,000 mg PO BID Qty: 60 0RF Januvia 100 mg tablet 100 mg PO QDAY Patient Comments: TAKE 1 TABLET BY MOUTH ONCE DAILY FOR DIABETES FOR 30 DAYS Jardiance 10 mg tablet 10 mg PO DAILY Patient Comments: TAKE 1 TABLET BY MOUTH ONCE DAILY aspirin 81 mg Tablet,Delayed Release (Dr/Ec) 81 mg PO QDAY Qty: 30 0RF ascorbic acid (vitamin C) [Vitamin C] 250 mg Tablet 500 mg PO BID Qty: 30 0RF pantoprazole 40 mg Tablet,Delayed Release (Dr/Ec) 40 mg PO QDAY 30 Days Qty: 30 0RF doxycycline hyclate 100 mg Tablet 100 mg PO BID 37 Days Qty: 74 0RF multivitamin with folic acid [Tab-A-Kurtis] 400 mcg Tablet 1 tab PO QDAY 30 Days Qty: 30 0RF zinc sulfate 50 mg zinc (220 mg) Capsule 220 mg PO QDAY 30 Days Qty: 132 0RF atorvastatin 40 mg tablet 40 mg PO HS Qty: 30 0RF Patient Comments: TAKE 1 TABLET BY MOUTH ONCE DAILY (DME) Contour Next Test Strips Strip See Rx Instructions .Route Qty: 100 0RF Rx Instructions: As directed (DME) lancets 17 gauge misc See Rx Instructions .Route Qty: 200 0RF Rx Instructions: As directed Referrals: Andrei Ortiz MD [Primary Care Provider] - In 1 week Problem List Clinical Impression: Diabetic ulcer of left foot Patient/Caregiver Discharge Instructions Education Materials: Wound Care, ED Diabetic Foot Care Additional Instructions: Follow-up with your primary care physician in 2 days for reevaluation and to be referred to podiatry for further evaluation and treatment of diabetic left foot ulcer worsening symptoms or any emergent concerns such as discharge and red nests swelling pain fever chills return to the emergency room immediately or call 911 it is very important to return tomorrow for PICC line insertion as discussed by the previous provider yesterday continue wound care and continue to go to the ER for IV antibiotics Print Language: Guamanian Stand Alone Forms: María Award Info., Patient Portal Info Letter PA/ARLIN Supervising Physician CECILIA/ARLIN Supervising Physician: Dr. Hernandez
[2025-01-18] MEDS: cefTRIAXone 2 GM, LIDOCAINE 1% 20 ML 4.2 ML IM (21:29)
== END 2025-01-18 21:44 | disposition home or self-care (01) ==
PROVIDERS: Emergency Provider Emergency Medicine; PCP Family Medicine
DX: E11.621 Type 2 diabetes mellitus with foot ulcer (principal); L97.529 Non-pressure chronic ulcer of other part of left foot with unspecified severity
CPT/HCPCS: 96372; 99282; J0696; J3490

== ENCOUNTER 2025-01-19 07:34 | Emergency (ER) | payer MEDICARE, MEDICAID, SELFPAY ==
[2025-01-19] VITALS (8 sets, daily range): BP systolic 107–147; BP diastolic 62–90; PULSE 65–90; RESP 12–18; TEMP 36.6–37.1; O2SAT 97–100; BMI 26.6
--- NOTE | 2025-01-19 | XR_ITS ---
Exam date and time: 01/19/2025, 11:17 AM Examination: Ultrasound-guided needle placement right brachial vein. Dual-lumen central line placement (PICC line). Fluoroscopy time: 2.6 Dose: 12.78 mGy Indications: Needs long-term antibiotics. A timeout was completed verifying correct patient, procedure, site, positioning Informed consent provided Technique: The patient's site was prepped and draped in sterile fashion. Maximum barrier sterile [id number], hand hygience, ultrasound sterile technique Ultrasound guided needle placement right brachial vein Ultrasound images recorded and stored. 5 cc 1% lidocaine administered for local anesthetic. Successful micropuncture with a 21-gauge needle is performed. 0.18 wire guide is then introduced into the SVC under fluoroscopic guidance. Dual-lumen catheter dilator is then introduced, followed by the catheter in the SVC and proper position under fluoroscopic guidance. Successful aspiration of blood and flushing with heparinized saline is then performed in the 2 venous limbs. The catheter sutured in place. Findings: Under fluoroscopy, the tip of the catheter is in good position in the vena cava. Estimated blood loss 3 cc The patient tolerated the procedure well and was in stable and satisfactory condition at completion of the procedure Impression: Successful ultrasound-guided needle placement right brachial vein Successful placement of dual lumen central line, percutaneous May use central line.
--- NOTE | 2025-01-19 08:00 | PD.EDRME ---
Rapid Medical Screening Exam E Arrival date/time: 01/19/25 07:34 64-year-old male with a history of hyperlipidemia, type 2 diabetes, osteomyelitis in his left foot presents to the emergency room with a chief complaint of needing his PICC line reinserted after accidentally removing it on Sunday. Patient was seen here in the emergency room and told to return this morning as our IR services were unavailable over the weekend. Patient is currently taking antibiotics for osteomyelitis in his left foot. I have greeted and performed a focused initial assessment of this patient. A comprehensive ED assessment and evaluation of the patient, analysis of all test results, and completion of the medical decision making process will be conducted by additional ED providers. Chief Complaint: General Adult/Misc Complain Time Seen by Provider: 01/19/25 07:41 Vital signs: Vital Signs Temperature 98 F 01/19/25 07:50 Pulse Rate 90 01/19/25 07:50 Respiratory Rate 18 01/19/25 07:50 Blood Pressure 107/62 01/19/25 07:50 Pulse Oximetry (%) 99 01/19/25 07:50 Oxygen Delivery Method Room Air 01/19/25 07:50 Vital signs reviewed by provider: Yes
[2025-01-19 09:10] LABS: INR 1.1 (0.9-1.3); Partial Thromboplastin Time 31.5 Seconds (22.0-36.0); Prothrombin Time 12.4 Seconds (9.0-12.2)
[2025-01-19 09:11] LABS: Basophils # (Auto) 0.1 Thou/mm3 (0.0-0.2); Basophils % (Auto) 1 % (0-2.5); Eosinophils # (Auto) 0.3 Thou/mm3 (0.0-0.5); Eosinophils % (Auto) 5 % (0-10); Hematocrit 34.3 % (41.0-53.0); Hemoglobin 11.2 g/dL (13.5-16.0); Immature Granulocytes Auto 0.02 Thou/mm3 (0.00-0.00); Lymphocytes # (Auto) 1.8 Thou/mm3 (1.0-4.8); Lymphocytes % (Auto) 32 % (10-50); Mean Corpuscular HGB Conc 32.7 g/dl (31.0-37.0); Mean Corpuscular Hemoglobin 31.2 pg (25.0-35.0); Mean Corpuscular Volume 96 fL (80-100); Monocytes # (Auto) 0.7 Thou/mm3 (0.0-0.8); Monocytes % (Auto) 12 % (0-12); Neutrophils # (Auto) 2.8 Thou/mm3 (1.8-7.7); Neutrophils % (Auto) 49 % (37-80); Nucleated Red Blood Cell # 0.00 Thou/mm3 (0.00-0.00); Nucleated Red Blood Cell % 0 /100 WBC (0); Platelet Count 129 Thou/mm3 (140-440); RDW Standard Deviation 50.9 fL (35.1-43.9); Red Blood Count 3.59 Miln/mm3 (4.50-5.90); White Blood Count 5.7 Thou/mm3 (3.8-10.6)
[2025-01-19 09:15] LABS: Alanine Aminotransferase 14 U/L (10-49); Albumin, Serum 4.1 gm/dL (3.4-4.8); Albumin/Globulin Ratio 1.2 (1.2-2.2); Alkaline Phosphatase 105 U/L (46-116); Anion Gap 11 (7-16); Aspartate Amino Transferase 27 U/L (0-34); BUN/Creatinine Ratio 16 Ratio (12-20); Bilirubin,Total 0.7 mg/dL (0.3-1.2); Blood Urea Nitrogen 13 mg/dL (9-23); Calcium 9.2 mg/dL (8.3-10.6); Calcium (Corrected) 9.2 mg/dL (8.5-10.1); Carbon Dioxide 24.4 mMol/L (20.0-31.0); Chloride 105 mMol/L (98-107); Creatinine (Component) 0.8 mg/dL (0.6-1.3); Globulin 3.5 gm/dL (2.3-3.5); Glucose 221 mg/dL (74-106); Osmolality,Calculated 286 (275-295); Potassium 4.0 mMol/L (3.4-5.1); Sodium 140 mMol/L (136-145); Total Protein 7.6 gm/dL (5.7-8.2); eGFR > 60 See Note
--- NOTE | 2025-01-19 09:44 | PD.EDADULT ---
ED General RME/HPI General Chief complaint: General Adult/Misc Complain Stated complaint: CAME FOR PICC REPLACEMENT Time Seen by Provider: 01/19/25 07:41 Arrival date/time: 01/19/25 07:34 Limitations: no limitations RME / HPI RME / HPI narrative: 01/19/25 07:34 64-year-old male with a history of hyperlipidemia, type 2 diabetes, osteomyelitis in his left foot presents to the emergency room with a chief complaint of needing his PICC line reinserted after accidentally removing it on Sunday. Patient was seen here in the emergency room and told to return this morning as our IR services were unavailable over the weekend. Patient is currently taking antibiotics for osteomyelitis in his left foot. I have greeted and performed a focused initial assessment of this patient. A comprehensive ED assessment and evaluation of the patient, analysis of all test results, and completion of the medical decision making process will be conducted by additional ED providers. DR. HUITRON MAIN ED EVALUATION 64 year old male with history of CHF (EF 50-55% 12/2024), CAD status post CABG, hypertension, diabetes, hyperlipidemia, osteomyelitis receiving Ceftriaxone 2G through PICC line and Doxycycline 100mg twice daily PO through 02/22/2025 presents to the ED for PICC line insertion. Patient reports he accidentally had pulled out his PICC line 2 days ago and evaluated here. However, IR is unavailable during the weekends and advised to return today. Patient has no complaints in the ED. Related Data Home Medications ?Medication ?Instructions ?Recorded ?Confirmed sitagliptin phosphate 100 mg 100 mg PO QDAY 01/27/21 01/11/25 tablet (Januvia) empagliflozin 10 mg tablet 10 mg PO DAILY 01/12/25 01/13/25 (Jardiance) Previous Rx's ?Medication ?Instructions ?Recorded metformin 1,000 mg tablet 1,000 mg PO BID #60 tabs 08/01/19 ascorbic acid (vitamin C) 250 mg 500 mg (2 x 250 mg) PO BID #30 tabs 01/16/25 tablet (Vitamin C) aspirin 81 mg tablet,delayed 81 mg PO QDAY #30 tabs 01/16/25 release atorvastatin 40 mg tablet 40 mg PO HS #30 tabs 01/16/25 blood sugar diagnostic (Contour #100 ea 01/16/25 Next Test Strips) doxycycline hyclate 100 mg tablet 100 mg PO BID 37 days #74 tabs 01/16/25 lancets 17 gauge #200 ea 01/16/25 multivitamin with folic acid 400 1 tab PO QDAY 30 days #30 tabs 01/16/25 mcg tablet (Tab-A-Kurtis) pantoprazole 40 mg tablet,delayed 40 mg PO QDAY 30 days #30 tabs 01/16/25 release zinc sulfate 50 mg zinc (220 mg) 220 mg (4.4 x 50 mg zinc (220 mg)) 01/16/25 capsule PO QDAY 30 days #132 caps Allergies Allergy/AdvReac Type Severity Reaction Status Date / Time No Known Allergies Allergy Verified 01/19/25 07:37 Review of Systems Review of Systems Systems Reviewed: All systems reviewed, normal except as documented Past Medical History Past Medical History CARDIAC: Positive Cardiac Disorders, Cardiac Arrhythmia, Angina, Coronary Artery Disease, Peripheral Vascular Disease, Hypercholesterolemia, Edema and Hypertension GASTROINTESTINAL: Positive Gastrointestinal Bleed MUSCULOSKELETAL: Positive Arthritis ENDOCRINE: Positive Endocrine Disorders and Diabetes Mellitus Type 2 HEMATOLOGIC: Positive Anemia PSYCHO/SOCIAL: Positive Depression and Anxiety OTHER HISTORY: Positive Hospitalization Surgical History SURGICAL: Positive Cardiac Surgery, Coronary Artery Bypass Graft, Valve Replacement and Amputation OTHER SURGICAL HX: LEFT GREAT TOE AMPUTATION, RIGHT 2 AND 3 TOE AMPUTATION Social History SMOKING STATUS: Never smoker SUBSTANCE USE: does not use ED Exam General Limitations: Present no limitations General appearance: Present alert and in no apparent distress Head Head exam: Present atraumatic Eye Eye exam: Present normal appearance, PERRL and EOMI ENT ENT exam: Present normal exam, normal oropharynx and mucous membranes moist Neck Neck exam: Present normal inspection, full ROM and trachea midline Chest Chest inspection: Present normal inspection and symmetric chest wall rise Respiratory Respiratory exam: Present normal lung sounds bilaterally Cardiovascular Cardiovascular exam: Present regular rate, normal rhythm and normal heart sounds Abdominal Exam Abdominal exam: Present soft; Absent distention, tenderness, guarding or rebound Extremities Exam Extremities exam: Present normal inspection and full ROM Expanded Upper Extremity Exam Shoulder exam: Present normal inspection and full ROM; Absent tenderness, swelling, abrasion, ecchymosis, deformity or erythema Back Exam Back exam: Present normal inspection Neurological Exam Neurological exam: Present alert, oriented X3 and CN II-XII intact Psychiatric Psychiatric exam: Present normal affect and normal mood Skin Skin exam: Present warm, dry, intact and normal color Course Quality Measures none Orders Category Date Time Status May Access Central Line NOW Care 01/19/25 12:00 Ordered IR PICC line insertion Stat Exams 01/19/25 Completed CBC Stat Lab 01/19/25 08:34 Completed CMP [Comprehensive Metabolic Panel] Stat Lab 01/19/25 08:34 Completed PT [Prothrombin Time with INR] Stat Lab 01/19/25 08:34 Completed PTT [Partial Thromboplastin Time] Stat Lab 01/19/25 08:34 Completed Heparin Sod Lock Syr [Hep-Lock 100 UNIT/ML SYR] Med 01/19/25 11:31 Discontinued 500 unit .ROUTE .STK-MED ONE Heparin Sod Lock Syr [Hep-Lock 100 UNIT/ML SYR] Med 01/19/25 11:30 Discontinued 500 unit IV X1 ONE Lidocaine 1% Pf 30 ml [Xylocaine 1% Pf 30 ml] Med 01/19/25 11:31 Discontinued 30 ml .ROUTE .STK-MED ONE Lidocaine 1% Pf 30 ml [Xylocaine 1% Pf 30 ml] Med 01/19/25 11:30 Discontinued 7 ml INFL X1 ONE cefTRIAXone/D5w 1gm IV premix [Rocephin/D5w 1gm IV Med 01/19/25 12:20 Discontinued premix] 1 gm in 50 ml IV STAT Vital Signs Vital signs: Vital Signs Temperature 98 F 01/19/25 07:50 Pulse Rate 90 01/19/25 07:50 Respiratory Rate 18 01/19/25 07:50 Blood Pressure 107/62 01/19/25 07:50 Pulse Oximetry (%) 99 01/19/25 07:50 Oxygen Delivery Method Room Air 01/19/25 07:50 Pulse ox is 99% on room air which is adequate. Discharge Plan Plan Patient Disposition: HOME (Self Care) Prescriptions/Referrals Prescriptions/Med Rec: No Action metformin 1,000 mg tablet 1,000 mg PO BID Qty: 60 0RF Januvia 100 mg tablet 100 mg PO QDAY Patient Comments: TAKE 1 TABLET BY MOUTH ONCE DAILY FOR DIABETES FOR 30 DAYS Jardiance 10 mg tablet 10 mg PO DAILY Patient Comments: TAKE 1 TABLET BY MOUTH ONCE DAILY aspirin 81 mg Tablet,Delayed Release (Dr/Ec) 81 mg PO QDAY Qty: 30 0RF ascorbic acid (vitamin C) [Vitamin C] 250 mg Tablet 500 mg PO BID Qty: 30 0RF pantoprazole 40 mg Tablet,Delayed Release (Dr/Ec) 40 mg PO QDAY 30 Days Qty: 30 0RF doxycycline hyclate 100 mg Tablet 100 mg PO BID 37 Days Qty: 74 0RF multivitamin with folic acid [Tab-A-Kurtis] 400 mcg Tablet 1 tab PO QDAY 30 Days Qty: 30 0RF zinc sulfate 50 mg zinc (220 mg) Capsule 220 mg PO QDAY 30 Days Qty: 132 0RF atorvastatin 40 mg tablet 40 mg PO HS Qty: 30 0RF Patient Comments: TAKE 1 TABLET BY MOUTH ONCE DAILY (DME) Contour Next Test Strips Strip See Rx Instructions .Route Qty: 100 0RF Rx Instructions: As directed (DME) lancets 17 gauge misc See Rx Instructions .Route Qty: 200 0RF Rx Instructions: As directed Referrals: John Taylor PA-C [Primary Care Provider] - In 1 week Problem List Clinical Impression: Osteomyelitis Patient/Caregiver Discharge Instructions Education Materials: Osteomyelitis Dc Additional Instructions: Por favor hacer elana con lund medico de cabecera, y tener precaucion con lund cateter intravenoso. [place] antibioticos tienen que ser administrados a travez de la vena hasta el . Print Language: Danish Stand Alone Forms: María Award Info., Patient Portal Info Letter MDM Narrative MDM hospital course: Patient is a 64-year-old male with medical history notable for hyperlipidemia, diabetes, GERD this in the emergency department for his dose of IV antibiotics as well as to get a PICC line placed. Patient was recently discharged with a PICC line for osteomyelitis however the PICC line he was accidentally dislodged at home at which point he came to the emergency department and had the PICC line removed and he has been getting IV antibiotics daily since then. Patient is here for placement of the PICC line PICC line placed by IR. Abx received. Will dc to home with close return precautions and follow up with PCP. Patient has home health scheduled to administer abx at home. Clinical Information Provided by patient Medical Records Reviewed [facility] I reviewed admission from 01/11/2025 through 01/16/2025 Meds/Rx Considered, not Ordered None Labs/Rad/Tests considered, not Ordered None Chronic Illness/Social Conditions which may negatively complicate care or outcome(s)-explain: None or not applicable EKG EKG not done Lab Interpretation Labs: see narrative above Imaging Imaging interpretation: see narrative above Radiology reports / interpretation(s): Ordering Physician: Nick Gallagher [employer] Date of Service: 01/19/25 Procedure(s): IR PICC line insertion Accession Number(s): [id number] cc: John Taylor PA-C; Avery Pappas MD; Nick Gallagher [employer]~ Exam date and time: 01/19/2025, 11:17 AM Examination: Ultrasound-guided needle placement right brachial vein. Dual-lumen central line placement (PICC line). Fluoroscopy time: 2.6 Dose: 12.78 mGy Indications: Needs long-term antibiotics. A timeout was completed verifying correct patient, procedure, site, positioning Informed consent provided Technique: The patient's site was prepped and draped in sterile fashion. Maximum barrier sterile [id number], hand hygience, ultrasound sterile technique Ultrasound guided needle placement right brachial vein Ultrasound images recorded and stored. 5 cc 1% lidocaine administered for local anesthetic. Successful micropuncture with a 21-gauge needle is performed. 0.18 wire guide is then introduced into the SVC under fluoroscopic guidance. Dual-lumen catheter dilator is then introduced, followed by the catheter in the SVC and proper position under fluoroscopic guidance. Successful aspiration of blood and flushing with heparinized saline is then performed in the 2 venous limbs. The catheter sutured in place. Findings: Under fluoroscopy, the tip of the catheter is in good position in the vena cava. Estimated blood loss 3 cc The patient tolerated the procedure well and was in stable and satisfactory condition at completion of the procedure Impression: Successful ultrasound-guided needle placement right brachial vein Successful placement of dual lumen central line, percutaneous May use central line. Dictated By: Avery Pappas MD Signed By: <Electronically signed by Avery Pappas MD in OV> 01/19/25 5064 Medication Administration(s) Medication Administration History Discontinued Medications Heparin Sodium (Beef Lung) (Heparin Sod Lock Syr 100 Unit/Ml) Confirm Administered Dose 500 unit .ROUTE .STK-MED ONE Stop: 01/19/25 11:32 Last Admin: 01/19/25 11:44 Dose: Not Given Documented By: EG Non-Admin Reason: Duplicate Medication on eMAR Heparin Sodium (Beef Lung) (Heparin Sod Lock Syr 100 Unit/Ml) 500 unit IV X1 ONE Stop: 01/19/25 11:31 Last Admin: 01/19/25 11:46 Dose: 500 unit Documented By: EG Comments: to sterile field. Ceftriaxone Sodium/Dextrose (Rocephin/D5w 1gm Iv Premix) 1 gm in 50 mls @ 100 mls/hr IV STAT STA Stop: 01/19/25 12:49 Last Infusion: 01/19/25 12:59 Dose: Infused Documented By: Admin: 01/19/25 12:29 Dose: 100 mls/hr Documented By: VL Lidocaine HCl (Lidocaine Inj Pf 1% 30 Ml Vial) Confirm Administered Dose 30 ml .ROUTE .STK-MED ONE Stop: 01/19/25 11:32 Last Admin: 01/19/25 11:44 Dose: Not Given Documented By: EG Non-Admin Reason: Duplicate Medication on eMAR Lidocaine HCl (Lidocaine Inj Pf 1% 30 Ml Vial) 7 ml INFL X1 ONE Stop: 01/19/25 11:31 Last Admin: 01/19/25 11:50 Dose: 7 ml Documented By: EG Comments: to sterile field. administered by dr. lock See above Diagnosis Most likely dx, and/or detailed dx discussion: osteomyelitis Dispositon Disposition: Discharge Home
--- NOTE | 2025-01-19 09:45 | PC.NURSE ---
CALLED AND SPOKE TO IRA IVY FOR SBAR REPORT.
[2025-01-19] MEDS: HEPARIN SOD LOCK SYR 100 UNIT/ML 500 UNIT IV (11:46)
[2025-01-19] MEDS: LIDOCAINE INJ PF 1% 30 ML VIAL 7 ML INFL (11:50)
--- NOTE | 2025-01-19 12:02 | PC.NURSE ---
SPOKE TO IRA IVY FROM IR; PER IRA, PT RECEIVED 7ML OF LIDOCAINE FOR PICC LINE INSERTION. IT IS READY TO USE.
[2025-01-19] MEDS: cefTRIAXone/D5w 1gm IV premix 1 GM/50 ML BAG IV (12:29)
--- NOTE | 2025-01-19 12:32 | PC.NURSE ---
patient transferred back to room via gurney. patient alert and oriented. site is flat,soft, nontender, and no signs of hematoma. dressing is clean dry and intact. hand off report given to ki stewart via telephone.
== END 2025-01-19 13:05 | disposition home or self-care (01) ==
PROVIDERS: Nurse Practitioner Family; Emergency Provider Emergency Medicine; PCP Family Medicine
DX: Z45.2 Encounter for adjustment and management of vascular access device (principal); E78.5 Hyperlipidemia, unspecified; E11.69 Type 2 diabetes mellitus with other specified complication; M86.8X7 Other osteomyelitis, ankle and foot; K21.9 Gastro-esophageal reflux disease without esophagitis; I11.0 Hypertensive heart disease with heart failure; I25.10 Atherosclerotic heart disease of native coronary artery without angina pectoris; I50.9 Heart failure, unspecified
CPT/HCPCS: 36569; 36415; 80053; 85025; 85610; 85730; 96365; 99284; C1751; C1894; J0696; J1642; J3490; J7050

== ENCOUNTER → 2025-03-19 | Outpatient (CLI) | payer OTHER, SELFPAY | END | disposition home or self-care (01) | PROVIDERS: PCP Family Medicine; Referring Provider Family Medicine; Visit Provider Student in an Organized Health Care Education/Training Program | DX: S98.132A Complete traumatic amputation of one left lesser toe, initial encounter (principal); S91.101A Unspecified open wound of right great toe without damage to nail, initial encounter; X58.XXXA Exposure to other specified factors, initial encounter; E11.52 Type 2 diabetes mellitus with diabetic peripheral angiopathy with gangrene; Z79.84 Long term (current) use of oral hypoglycemic drugs; F32.A Depression, unspecified; Z95.1 Presence of aortocoronary bypass graft | CPT/HCPCS: 97597; 99213; G0463 ==

== ENCOUNTER → 2025-03-26 | Outpatient (CLI) | payer OTHER, SELFPAY | END | disposition home or self-care (01) | LOC: SWHD 09:02 | PROVIDERS: PCP Family Medicine; Referring Provider Family Medicine; Visit Provider Student in an Organized Health Care Education/Training Program | DX: S91.302A Unspecified open wound, left foot, initial encounter (principal); S91.101A Unspecified open wound of right great toe without damage to nail, initial encounter; X58.XXXA Exposure to other specified factors, initial encounter; E11.52 Type 2 diabetes mellitus with diabetic peripheral angiopathy with gangrene; Z79.84 Long term (current) use of oral hypoglycemic drugs; F32.A Depression, unspecified; Z95.1 Presence of aortocoronary bypass graft | CPT/HCPCS: 97597; A9270 ==

== ENCOUNTER 2025-04-08 14:31 | Emergency (ER) | payer MEDICARE, SELFPAY ==
[2025-04-08 14:33] VITALS: BP 133/76; PULSE 90; PULSE 92; RESP 16; RESP 20; TEMP 37; O2SAT 97; O2SAT 98
[2025-04-08 14:36] VITALS: BMI 26.6
--- NOTE | 2025-04-08 15:41 | PD.EDFALL ---
ED Fall Injury RME/HPI General Chief Complaint: Fall Stated Complaint: FALL Time Seen by Provider: 04/08/25 15:26 Arrival date/time: 04/08/25 14:31 RME / HPI RME / HPI Narrative: 64 year old male with history of CHF (EF 50-55% 12/2024), CAD s/p CABG, hypertension, diabetes, hyperlipidemia, osteomyelitis (treated with IV abx) presents to the ED BIBA from home for evaluation of head injury today. Per medics, son on scene reported the patient had attempted to sit on his walker. However, the walker did not lock and fell backwards, striking the back of his head on the floor. No LOC reported. Patient admits to drinking 6-12 beers with a little bit of tequila today. No other injuries or complaints reported. Denies headache, neck pain, chest pain, back pain. Denies nausea or vomiting. Patient states he was drinking due to feeling lonely and I feel sad about my family . Related Data Home Medications ?Medication ?Instructions ?Recorded ?Confirmed sitagliptin phosphate 100 mg 100 mg PO QDAY 01/27/21 01/11/25 tablet (Januvia) empagliflozin 10 mg tablet 10 mg PO DAILY 01/12/25 01/13/25 (Jardiance) Previous Rx's ?Medication ?Instructions ?Recorded metformin 1,000 mg tablet 1,000 mg PO BID #60 tabs 08/01/19 ascorbic acid (vitamin C) 250 mg 500 mg (2 x 250 mg) PO BID #30 tabs 01/16/25 tablet (Vitamin C) aspirin 81 mg tablet,delayed 81 mg PO QDAY #30 tabs 01/16/25 release atorvastatin 40 mg tablet 40 mg PO HS #30 tabs 01/16/25 blood sugar diagnostic (Contour #100 ea 01/16/25 Next Test Strips) lancets 17 gauge #200 ea 01/16/25 Allergies Allergy/AdvReac Type Severity Reaction Status Date / Time No Known Allergies Allergy Verified 01/19/25 07:37 Review of Systems Review of Systems Systems Reviewed: All systems reviewed, normal except as documented Past Medical History Past Medical History CARDIAC: Positive Cardiac Disorders, Cardiac Arrhythmia, Angina, Coronary Artery Disease, Peripheral Vascular Disease, Hypercholesterolemia, Edema and Hypertension GASTROINTESTINAL: Positive Gastrointestinal Bleed MUSCULOSKELETAL: Positive Arthritis ENDOCRINE: Positive Endocrine Disorders and Diabetes Mellitus Type 2 HEMATOLOGIC: Positive Anemia PSYCHO/SOCIAL: Positive Depression and Anxiety OTHER HISTORY: Positive Hospitalization Surgical History SURGICAL: Positive Cardiac Surgery, Coronary Artery Bypass Graft, Valve Replacement and Amputation Social History SMOKING STATUS: Never smoker SUBSTANCE USE: does not use ED Exam Narrative Physical exam: Constitutional: Awake, alert, nontoxic, tearful, intoxicated HEENT: Normocephalic, contusion with superficial abrasion to the left posterior parietal region, extraocular movements intact. Neck: Supple CV: Regular rate and rhythm, no murmurs/rubs/gallops Lungs: Clear to auscultation BL, no respiratory distress. Abd: Soft, NT, ND, no HSM noted to palpation Extremities: No deformities, no edema noted Neuro: AAOx3, CN 2-12 GIBL, no acute neuro deficit noted. Skin: Warm, dry, intact except as above Course Quality Measures none Orders Category Date Time Status CT cervical spine wo con Stat Exams 04/08/25 15:[address] head/brain wo con Stat Exams 04/08/25 15:47 Completed Vital Signs Vital signs: Vital Signs Temperature 98.6 F 04/08/25 14:33 Pulse Rate 92 04/08/25 14:33 Respiratory Rate 16 04/08/25 14:33 Blood Pressure 133/76 H 04/08/25 14:33 Pulse Oximetry (%) 97 04/08/25 14:33 Oxygen Delivery Method Room Air 04/08/25 14:33 Pulse ox is 97% on room air which is adequate. Fall MDM Narrative MDM Narrative:: Chloe Rowland am scribing for and in the presence of Dr. Pyle. Patient data External records reviewed:: [facility] previous records and EMS form Clinical information provided by:: patient and EMS Social determinants that could affect healthcare access:: none Patient has the following chronic illnesses:: CHF (EF 50-55% 12/2024), CAD s/p CABG, hypertension, diabetes, hyperlipidemia, osteomyelitis (treated with IV abx) How is presenting disease/condition affected by chronic disease/condition?: exacerbated by Evaluation data The following diagnostics were reviewed and interpreted by me:: radiology exam(s) Lab and/or radiology exams considered but not ordered:: None Interpretation Summary: Ordering Physician: Page Pyle MD Date of Service: 04/08/25 Procedure(s): CT cervical spine wo con Accession Number(s): [id number] cc: Kit Abdi MD; Page Pyle MD; NO PRIMARY/FAMILY,PHYSICIAN~ Examination: CT cervical spine without contrast 2-D sagittal reconstructions 2-D coronal reconstructions 3-D reconstructions. Exam date and time: April 08, 2025, 1559 hours, comparison January 11, 2025 INDICATIONS: Patient fell today with injury to the neck, neck pain CTDI:vol (mGy) 14.4 DLP: (mGycm) 315 Technique: Multiple 2 mm axial sections of the cervical spine have been obtained. The coronal and sagittal reconstructions have been obtained. 3-D reconstructions have been obtained. Low dose protocols were performed. One or more of the following dose reduction techniques were used; automated exposure control, adjustment of the mA and/or KV according to patient size, use of iterative reconstruction technique. Findings: Axial sections demonstrate intact base of the skull. C1 exhibit satisfactory relationship to the odontoid. No acute cervical vertebral body fracture seen. Alignment posterior spinous processes satisfactory. Impression: No acute cervical fracture. Dictated By: Kit Abdi MD Signed By: <Electronically signed by Kit Abdi MD in OV> 04/08/25 1722 Ordering Physician: Page Pyle MD Date of Service: 04/08/25 Procedure(s): CT head/brain wo con Accession Number(s): [id number] cc: Kit Abdi MD; Page Pyle MD; NO PRIMARY/FAMILY,PHYSICIAN~ Examination: CT brain head without contrast. 2-D sagittal coronal reconstructions Date and time of exam: April 08, 2025, 1559 hours INDICATIONS: Ground-level fall today with injury to the head, head pain CTDI: vol (mGy): 52.6 DLP: (mGycm): 1004 Technique: Multiple CT axial sections of the brain have been obtained, 5 mm slice thickness. Contrast has not been administered. 2-D sagittal, coronal reconstructions have been obtained Low dose protocols were performed. One or more of the following dose reduction techniques were used; automated exposure control, adjustment of the mA and/or KV according to patient size, use of iterative reconstruction technique. Findings: No significant ventricular enlargement. Intra-axial or extra-axial hemorrhage density is not seen. No mass effect or midline shift Basal cisterns are not remarkable. Fourth ventricle is midline. Cranial vault intact. Soft tissue swelling posterior left parietal scalp Impression: Negative for acute hemorrhage, mass effect or midline shift Dictated By: Kit Abdi MD Signed By: <Electronically signed by Kit Abdi MD in OV> 04/08/25 1723 Medications / Prescriptions Medications or Prescriptions considered but not ordered:: None Medication administrations:: None Consultations Consultation(s) initiated? (list below): No Diagnosis Fall Differential Diagnosis: syncope and other (Head injury, fall, alcohol intoxication) Most likely diagnosis given after review of the tests above:: Alcohol abuse Contusion of head Admission Indicated Admission indicated?: not indicated Explain why admission is indicated or not indicated:: With significant improvement and no condition needing emergent intervention, there was no indication for admission. Admission Request Was there a request for admission?: No Disposition Plan Disposition Plan: Discharge Discharge Attestation Discharge Attestation: The patient and all family members were given an opportunity to ask questions and understood the discharge instructions. Discharge instructions specifically effects, indications for sooner follow up or return to the emergency department, and the expected course of current diagnosis. Patient condition: Stable Discharge Plan Plan Patient Disposition: HOME (Self Care) Patient condition on transfer: Stable Prescriptions/Referrals Prescriptions/Med Rec: No Action metformin 1,000 mg tablet 1,000 mg PO BID Qty: 60 0RF Januvia 100 mg tablet 100 mg PO QDAY Patient Comments: TAKE 1 TABLET BY MOUTH ONCE DAILY FOR DIABETES FOR 30 DAYS Jardiance 10 mg tablet 10 mg PO DAILY Patient Comments: TAKE 1 TABLET BY MOUTH ONCE DAILY aspirin 81 mg Tablet,Delayed Release (Dr/Ec) 81 mg PO QDAY Qty: 30 0RF ascorbic acid (vitamin C) [Vitamin C] 250 mg Tablet 500 mg PO BID Qty: 30 0RF atorvastatin 40 mg tablet 40 mg PO HS Qty: 30 0RF Patient Comments: TAKE 1 TABLET BY MOUTH ONCE DAILY (DME) Contour Next Test Strips Strip See Rx Instructions .Route Qty: 100 0RF Rx Instructions: As directed (DME) lancets 17 gauge misc See Rx Instructions .Route Qty: 200 0RF Rx Instructions: As directed Referrals: No Primary/Family,Physician [Primary Care Provider] - In 1 week Problem List Clinical Impression: Alcohol abuse, Contusion of head Patient/Caregiver Discharge Instructions Education Materials: Alcoholism: Getting Help, Addiction: Getting Help, Addiction Recovery Counseling, ED Head Injury (Adult) Additional Instructions: Algunos principios generales de lalo que pueden ayudarte son los principios de ADELANTE: Agua: (beber suficiente agua fresca para mantenerse hidratado, priorizando el agua en lugar de refrescos, caf?, t?, jugos, etc.). [place] (descansar adecuadamente por la noche, acostarse unas horas antes de la medianoche y evitar las pantallas, la televisi?n y la m?veronica lizzy niles antes de acostarse, as? kassandra las comidas pesadas niles antes de acostarse). Ejercicio: (ejercicio/caminatas diarias seg?n la tolerancia). Dena solar: (exponer la piel al jericho melly 15-20 minutos aproximadamente, temprano por la ma?serenity y al atardecer, para obtener los beneficios de la vitamina D). Aire (ejercicios de respiraci?n profunda temprano por la ma?serenity al aire nakia). Nutricion: (consumir gaby dieta a base de plantas, evitar las radhika en general y los alimentos altamente procesados). Templanza (evitar el alcohol, las drogas il?citas, las bebidas con cafe?na, fumar, etc.). [place] en [place] (dedicar tiempo diariamente al estudio b?blico y la oraci?n: la contemplaci?n tiene beneficios para la lalo). Recursos adicionales que pueden ser ?tiles: [email or web address], consulte la secci?n de recursos y seminarios. Print Language: [place] Stand Alone Forms: María Award Info., Patient Portal Info Letter
--- NOTE | 2025-04-08 15:47 | XR_ITS ---
Examination: CT cervical spine without contrast 2-D sagittal reconstructions 2-D coronal reconstructions 3-D reconstructions. Exam date and time: April 08, 2025, 1559 hours, comparison January 11, 2025 INDICATIONS: Patient fell today with injury to the neck, neck pain CTDI:vol (mGy) 14.4 DLP: (mGycm) 315 Technique: Multiple 2 mm axial sections of the cervical spine have been obtained. The coronal and sagittal reconstructions have been obtained. 3-D reconstructions have been obtained. Low dose protocols were performed. One or more of the following dose reduction techniques were used; automated exposure control, adjustment of the mA and/or KV according to patient size, use of iterative reconstruction technique. Findings: Axial sections demonstrate intact base of the skull. C1 exhibit satisfactory relationship to the odontoid. No acute cervical vertebral body fracture seen. Alignment posterior spinous processes satisfactory. Impression: No acute cervical fracture.
--- NOTE | 2025-04-08 15:47 | XR_ITS ---
Examination: CT brain head without contrast. 2-D sagittal coronal reconstructions Date and time of exam: April 08, 2025, 1559 hours INDICATIONS: Ground-level fall today with injury to the head, head pain CTDI: vol (mGy): 52.6 DLP: (mGycm): 1004 Technique: Multiple CT axial sections of the brain have been obtained, 5 mm slice thickness. Contrast has not been administered. 2-D sagittal, coronal reconstructions have been obtained Low dose protocols were performed. One or more of the following dose reduction techniques were used; automated exposure control, adjustment of the mA and/or KV according to patient size, use of iterative reconstruction technique. Findings: No significant ventricular enlargement. Intra-axial or extra-axial hemorrhage density is not seen. No mass effect or midline shift Basal cisterns are not remarkable. Fourth ventricle is midline. Cranial vault intact. Soft tissue swelling posterior left parietal scalp Impression: Negative for acute hemorrhage, mass effect or midline shift
[2025-04-08 16:09] VITALS: BP 136/76; PULSE 88; RESP 15; TEMP 36.9; O2SAT 96
== END 2025-04-08 18:51 | disposition home or self-care (01) ==
PROVIDERS: Emergency Provider Family Medicine
DX: S00.93XA Contusion of unspecified part of head, initial encounter (principal); F10.10 Alcohol abuse, uncomplicated; S19.9XXA Unspecified injury of neck, initial encounter; W18.30XA Fall on same level, unspecified, initial encounter; I25.10 Atherosclerotic heart disease of native coronary artery without angina pectoris; I11.0 Hypertensive heart disease with heart failure; I50.9 Heart failure, unspecified; E78.5 Hyperlipidemia, unspecified; E11.9 Type 2 diabetes mellitus without complications
CPT/HCPCS: 70450; 72125; 99282

== ENCOUNTER → 2025-04-09 | Outpatient (CLI) | payer OTHER, SELFPAY | END | disposition home or self-care (01) | LOC: SWHD 14:07 | PROVIDERS: PCP Family Medicine; Referring Provider Family Medicine; Visit Provider Student in an Organized Health Care Education/Training Program | DX: S91.302A Unspecified open wound, left foot, initial encounter (principal); S91.101A Unspecified open wound of right great toe without damage to nail, initial encounter; X58.XXXA Exposure to other specified factors, initial encounter; E11.52 Type 2 diabetes mellitus with diabetic peripheral angiopathy with gangrene; Z79.84 Long term (current) use of oral hypoglycemic drugs; F32.A Depression, unspecified; Z95.1 Presence of aortocoronary bypass graft | CPT/HCPCS: 11042; A9270 ==

== ENCOUNTER → 2025-04-16 | Outpatient (CLI) | payer OTHER, SELFPAY | END | disposition home or self-care (01) | LOC: SWHD 13:54 | PROVIDERS: PCP Family Medicine; Referring Provider Family Medicine; Visit Provider Student in an Organized Health Care Education/Training Program | DX: S91.302A Unspecified open wound, left foot, initial encounter (principal); S91.101A Unspecified open wound of right great toe without damage to nail, initial encounter; X58.XXXA Exposure to other specified factors, initial encounter; E11.52 Type 2 diabetes mellitus with diabetic peripheral angiopathy with gangrene; Z79.84 Long term (current) use of oral hypoglycemic drugs; F32.A Depression, unspecified; Z95.1 Presence of aortocoronary bypass graft | CPT/HCPCS: 11042; A9270 ==